=== PATIENT | female | born 1990 ===

== ENCOUNTER 2023-03-27 16:39 | Observation (INO) | payer MEDICAID, SELFPAY ==
--- NOTE | 2023-03-27 | ECG_ITS ---
Test Reason : CHEST PAIN Blood Pressure : / mmHG Vent. Rate : 059 BPM Atrial Rate : 059 BPM P-R Int : 174 ms QRS Dur : 090 ms QT Int : 412 ms P-R-T Axes : 066 048 040 degrees QTc Int : 407 ms Sinus bradycardia with sinus arrhythmia Otherwise normal ECG No previous ECGs available Referred By: Generic ED Physician Electronically Signed By:PEDRO WHEELER
--- NOTE | ~2023-03-27 | CT_ITS ---
EXAMINATION: CT ABDOMEN AND PELVIS WITHOUT CONTRAST CLINICAL INFORMATION: Abdominal pain. Rule out appendicitis. COMPARISON: None available. TECHNIQUE: Multidetector volumetric imaging was performed from the superior aspect of the liver through the pubic symphysis. Sagittal and coronal reformatted images were obtained on the technologist's workstation. This CT examination was performed using dose optimization techniques as appropriate, variously including the following: *Automated exposure control *Adjustment of mA and/or kV according to patient size (this includes techniques or standardized protocols for targeted exams where dose is matched to indication/reason for exam; i.e. extremities or head) *Use of iterative reconstruction technique DLP: 346 mGy-cm FINDINGS: LUNG BASES: The visualized lung bases are unremarkable. LIVER, GALLBLADDER, AND BILIARY TREE: The liver is moderately enlarged with the right hepatic lobe measuring 18 cm and left hepatic lobe measuring 20) in craniocaudad length. It as normal shape, and attenuation. No focal hepatic lesion or biliary ductal dilatation is present. The gallbladder has been surgically removed. PANCREAS: Unremarkable. SPLEEN: Unremarkable. ADRENAL GLANDS: Unremarkable. KIDNEYS AND URETERS: The kidneys are normal in size, shape, and attenuation. No hydronephrosis, hydroureter, or calculi seen. No perinephric stranding. BLADDER: Unremarkable. GASTROINTESTINAL TRACT: There is moderate scattered stool and gas seen throughout the colon without significant distention. The small bowel loops are normal caliber. Appendix is not visualized with certainty. No inflammatory process of free air seen. There is minimal free fluid in the pelvis. ABDOMINAL WALL: No significant hernia is appreciated. LYMPH NODES: Normal. VASCULAR: Unremarkable. PELVIC VISCERA: The uterus is retroverted. There is no adnexal mass or free fluid. OSSEOUS STRUCTURES: No aggressive lytic or sclerotic process. CT/CT abdomen pelvis wo IV con IMPRESSION: No acute intracranial process seen. Moderate hepatomegaly. Mild constipation. Appendix is not seen. The gallbladder has been removed. Fleischner guidelines were followed.
--- NOTE | ~2023-03-27 | XR_ITS ---
EXAMINATION: XR LUMBOSACRAL SPINE CLINICAL INFORMATION: Low back pain. COMPARISON: None available. TECHNIQUE: 3 views. FINDINGS: There is mild straightening of lumbar lordosis. The vertebral heights, alignment and disc heights are normal. There is mild endplate spondylosis at L3-L4 disc level. No visible acute fracture, dislocation or subluxation seen. SI joints are symmetrical. The soft tissues are normal. XR/XR lumbar spine 2-3V IMPRESSION: Mild straightening of lumbar lordosis likely spasm Mild endplate spondylosis L3-L4 disc level. No visible acute fracture, dislocation or subluxation seen.
--- NOTE | ~2023-03-27 | XR_ITS ---
EXAMINATION: XR THORACOLUMBAR SPINE CLINICAL INFORMATION: Pain. COMPARISON: None available. TECHNIQUE: 2 views. FINDINGS: The vertebral alignment is normal. No intrinsic bony abnormality. The disc heights and neural foramina are well maintained. The endplates and posterior elements are normal. No fracture or subluxation. The surrounding prevertebral soft tissues are unremarkable. XR/XR thoracic spine 2V IMPRESSION: No compression fractures or subluxations are identified. The disc spaces are preserved. No endplate changes are seen. The prevertebral soft tissues are normal. The foramina are patent.
[2023-03-27 16:45] VITALS: BP 140/75; BP 150/95; PULSE 60; PULSE 64; RESP 15; TEMP 36.9; O2SAT 97; O2SAT 99; BMI 26.6
--- NOTE | 2023-03-27 16:54 | PC.NURSE ---
Pt BIBA from home, abdominal pain x3 weeks with intermittent nausea and vomiting. States the pain feels similar to when she had gallbladder flare ups. Pt verbalizes she has not taken anything for the pain. Currently resting on stretcher, normal sinus on monitor, blood pressure elevated 150/95. Pt was ambulatory from EMS stretcher to hospital stretcher, respirations even and unlabored, skin pwd, no apparent distress at this time, awaiting
[2023-03-27 17:07] LABS: MANUAL DIFF FLAG NO
[2023-03-27 17:09] LABS: Basophils Percent Auto 0.3 % (0-2); Eosinophils Percent Auto 0.3 % (0-4); Hemoglobin 12.1 g/dl (12.0-16.0); Imm Gran Abs Auto 0.01 X10*3/uL (0.00-0.03); Imm Gran Pct Auto 0.1 % (0.0-0.4); Lymphocytes Absolute Auto 2.9 X10*3/uL (1.2-4.9); Lymphocytes Percent Auto 39.7 % (20-40); Mean Corpuscular HGB Conc 33.6 g/dl (31.0-35.0); Mean Corpuscular Hemoglobin 29.7 pg (27.0-33.0); Mean Corpuscular Volume 88.2 fL (80.0-98.0); Mean Platelet Volume 9.5 fL (9.4-12.3); Monocytes Absolute Auto 0.3 X10*3/uL (0.1-1.2); Monocytes Percent Auto 4.1 % (2-11); Neutrophils Absolute Auto 4.1 x10*3/uL (2.0-8.3); Neutrophils Percent Auto 55.5 % (45-73); Platelet Count 308 X10*3/uL (160-400); Red Blood Count 4.08 X10*6/uL (4.20-5.50); Red Cell Distribution Width 14.5 % (11.0-16.0); White Blood Count 7.4 X10*3/uL (4.8-10.8)
--- NOTE | 2023-03-27 17:36 | ED.ABDPAIN ---
HPI - Abdominal Pain General Chief Complaint: Abdominal Pain Stated Complaint: chest pain,dizziness Time Seen by Provider: 03/27/23 17:26 Source: patient, family and EMS Mode of arrival: EMS Limitations: no limitations History of Present Illness HPI narrative: 33-year-old female came in for evaluation of abdominal pain. Patient's symptoms started about 3 weeks ago that is progressively getting worse today patient felt severe diffuse abdominal pain that is associated with nausea and vomiting, had a normal bowel movement yesterday, no blood in the stool or in the vomitus, passing flatus, no dysuria, no frequency urination, no blood in the urine. Past surgical history is significant for cholecystectomy and ectopic . Patient declined use of alcohol. Patient smokes marijuana daily. Related Data Allergies Allergy/AdvReac Type Severity Reaction Status Date / Time No Known Allergies Allergy Verified 03/27/23 17:33 Review of Systems Review of Systems All other systems are reviewed and are negative Constitutional: Reports as per HPI and Reports no additional constitutional complaints Eyes: Reports as per HPI and Reports no additional eye complaints Reports system reviewed and no additional complaints, except as documented Cardiovascular: Reports as per HPI and Reports no additional cardiovascular complaints Respiratory: Reports as per HPI and Reports no additional respiratory complaints Gastrointestinal: Reports as per HPI and Reports no additional gastrointestinal complaints Genitourinary: Reports no additional female genitourinary complaints Musculoskeletal: Reports no additional musculoskeletal complaints Skin/Breast: Reports system reviewed and no additional complaints, except as docu Psychiatric: Reports no additional psychiatric complaints Endocrine: Reports no additional endocrine complaints Hematologic/Lymphatic: Reports no additional hematologic/lymphatic complaints Allergic/Immunologic: Reports no additional allergic/immunologic complaints Reports system reviewed and no additional complaints, except as documented and Reports Abnormal speech present [facility] Social History Social History Alcohol intake: current Alcohol intake frequency: holidays/special occasions only Smoked in Last 30 Days: Yes Use of substances other than those prescribed or required for medical reasons: Yes Substance Use Type: Marijuana Advance Directives: No Advance Directives Information Provided: No Patient : No Physical Exam ED Vital Signs: Vital Signs - 24 hr 03/27/23 16:45 03/27/23 19:27 Temperature 98.5 F Pulse Rate 60 48 L Respiratory Rate 15 16 Blood Pressure 150/95 H 147/83 H Pulse Oximetry 97 100 Oxygen Delivery Method Room Air BMI result Body Mass Index 26.6 Vital signs have been reviewed as appeared to be correct. Blood pressure normal. Heart rate normal. Respiration rate normal. Temperature normal. Oxygen saturation normal. Appearance: Alert. Oriented X3. No acute distress. Head: Normal external exam. Normocephalic. Atraumatic. No Salguero signs noted. No raccoon eyes noted Eyes: PERRLA. EOMI. Conjunctiva and sclera normal. Eyelids normal. ENT: TM's Normal. Pharynx normal. Uvula midline. Moist mucous membranes. No trismus noted. No drooling noted. No muffled voice noted. Neck: Normal inspection. Neck supple. FROM. No adenopathy. Thyroid Normal. No meningeal signs. No neck mass noted. CVS: Normal heart rate and rhythm. Heart sound normal. No murmurs noted. Pulses normal throughout. Respiratory: No respiratory distress. Painless inspiration. Breath sounds normal. No wheezes/rales/rhonchi noted. Chest nontender. No accessory muscle usage noted or decreased air movement noted. Abdomen: Soft , mild tenderness, no rebound tenderness, no guarding. Bowel sounds normal in all 4 quadrants. No distention noted. No organomegaly noted. No visible injury noted. Back: No CVA tenderness. Full range of motion noted. Skin: Skin warm and dry. Normal skin color. Normal skin turgor. No rashes/lesions/lacerations noted. Extremities: No lower extremity edema. Extremities exhibit normal range of motion. Extremities nontender. Neuro: Oriented X 3. Cranial nerve exam: II-XII are grossly intact No motor deficit. No sensory deficit. Reflexes normal. Course Reevaluation(s) Reevaluation #1: 33-year-old female history of marijuana smoking, received multiple doses of Zofran, Reglan, Ativan, oxycodone, morphine, and Dilaudid with no improvement patient still nauseous and vomiting in the emergency department. CT of the abdomen and pelvis showing no acute intra-abdominal pathology. Time: 20:27 Medical Decision Making Differential Diagnosis Differential Diagnoses: The differential diagnosis associated with the presentation includes (Gastritis, small-bowel obstruction, colitis, marijuana inducing emesis, cyclic vomiting syndrome, dehydration, electrolyte abnormality, severe anemia, UTI, .) Admission/Observation Consideration of admission/observation: Escalation of care including admission/observation considered Consult Healthcare Provider Management of the patient was discussed with: Hospitalist (Dr. Ross) Lab Data MDM Lab Attestation statement: I reviewed the patient's lab results. 03/27/23 17:02 03/27/23 17:02 Labs: Lab Results 03/27/23 03/27/23 03/27/23 Range/Units 17:02 17:02 17:02 WBC 7.4 (4.8-10.8) X10*3/uL RBC 4.08 L (4.20-5.50) X10*6/uL Hgb 12.1 (12.0-16.0) g/dl Hct 36.0 L (37.0-47.0) % MCV 88.2 (80.0-98.0) fL MCH 29.7 (27.0-33.0) pg MCHC 33.6 (31.0-35.0) g/dl RDW 14.5 (11.0-16.0) % Plt Count 308 (160-400) X10*3/uL MPV 9.5 (9.4-12.3) fL Immature Gran % (Auto) 0.1 (0.0-0.4) % Neut % (Auto) 55.5 (45-73) % Lymph % (Auto) 39.7 (20-40) % Sublette % (Auto) 4.1 (2-11) % Eos % (Auto) 0.3 (0-4) % Baso % (Auto) 0.3 (0-2) % Lymph # (Auto) 2.9 (1.2-4.9) X10*3/uL Sublette # (Auto) 0.3 (0.1-1.2) X10*3/uL Eos # (Auto) 0.0 (0.0-0.4) X10*3/uL Baso # (Auto) 0.0 (0.0-0.2) X10*3/uL Abs Immat Gran (auto) 0.01 (0.00-0.03) X10*3/uL Absolute Neuts (auto) 4.1 (2.0-8.3) x10*3/uL Absolute Nucleated RBC 0.000 (0.0-0.012) X10*3/uL Nucleated RBC % (auto) 0.0 (0.0-0.2) /100WBC Sodium 140 (135-145) mmol/L Potassium 3.4 (3.3-5.1) mmol/L Chloride 108 (96-108) mmol/L Carbon Dioxide 24 (22-29) mmol/L Anion Gap 11 L (12-20) BUN 4 L (9-16) mg/dL Creatinine 0.77 (0.5-1.4) mg/dL Estim Creat Clear Calc 96.1 Estimated GFR > 60 Random Glucose 85 (60-115) mg/dL Calcium 9.5 (8.4-10.2) mg/dL Total Bilirubin 0.3 (0.0-1.0) mg/dL Direct Bilirubin 0.1 (0.0-0.5) mg/dL AST 15 (5-31) U/L ALT 8 (0-31) U/L Alkaline Phosphatase 55 (39-117) U/L Troponin I High Sens < 2.7 (<3.5-17.0) ng/L Total Protein 7.2 (6.5-8.0) g/dL Albumin 3.8 (3.5-5.0) g/dL Lipase 17 (8-78) U/L Urine Color Urine Appearance Urine pH (5.0-9.0) Ur Specific Theriot (1.005-1.025) Urine Protein (Neg-Trace) mg/dL Urine Glucose (UA) (Negative) mg/dL Urine Ketones (Negative) mg/dL Urine Blood (Negative) Urine Nitrite (Negative) Ur Leukocyte Esterase (Negative) Urine RBC (0-2) /HPF Urine WBC (0-5) /HPF Ur Squamous Epith Cells (0-2) /HPF Urine Bacteria (None Seen) Hyaline Casts (0-2) /LPF Urine Test (NEGATIVE) 03/27/23 03/27/23 Range/Units 17:49 17:49 WBC (4.8-10.8) X10*3/uL RBC (4.20-5.50) X10*6/uL Hgb (12.0-16.0) g/dl Hct (37.0-47.0) % MCV (80.0-98.0) fL MCH (27.0-33.0) pg MCHC (31.0-35.0) g/dl RDW (11.0-16.0) % Plt Count (160-400) X10*3/uL MPV (9.4-12.3) fL Immature Gran % (Auto) (0.0-0.4) % Neut % (Auto) (45-73) % Lymph % (Auto) (20-40) % Sublette % (Auto) (2-11) % Eos % (Auto) (0-4) % Baso % (Auto) (0-2) % Lymph # (Auto) (1.2-4.9) X10*3/uL Sublette # (Auto) (0.1-1.2) X10*3/uL Eos # (Auto) (0.0-0.4) X10*3/uL Baso # (Auto) (0.0-0.2) X10*3/uL Abs Immat Gran (auto) (0.00-0.03) X10*3/uL Absolute Neuts (auto) (2.0-8.3) x10*3/uL Absolute Nucleated RBC (0.0-0.012) X10*3/uL Nucleated RBC % (auto) (0.0-0.2) /100WBC Sodium (135-145) mmol/L Potassium (3.3-5.1) mmol/L Chloride (96-108) mmol/L Carbon Dioxide (22-29) mmol/L Anion Gap (12-20) BUN (9-16) mg/dL Creatinine (0.5-1.4) mg/dL Estim Creat Clear Calc Estimated GFR Random Glucose (60-115) mg/dL Calcium (8.4-10.2) mg/dL Total Bilirubin (0.0-1.0) mg/dL Direct Bilirubin (0.0-0.5) mg/dL AST (5-31) U/L ALT (0-31) U/L Alkaline Phosphatase (39-117) U/L Troponin I High Sens (<3.5-17.0) ng/L Total Protein (6.5-8.0) g/dL Albumin (3.5-5.0) g/dL Lipase (8-78) U/L Urine Color Yellow Urine Appearance Clear Urine pH >= 9.0 (5.0-9.0) Ur Specific Theriot 1.015 (1.005-1.025) Urine Protein Trace (Neg-Trace) mg/dL Urine Glucose (UA) Negative (Negative) mg/dL Urine Ketones Negative (Negative) mg/dL Urine Blood Trace H (Negative) Urine Nitrite Negative (Negative) Ur Leukocyte Esterase Negative (Negative) Urine RBC 11-20 H (0-2) /HPF Urine WBC 0-5 (0-5) /HPF Ur Squamous Epith Cells 0-2 (0-2) /HPF Urine Bacteria None Seen (None Seen) Hyaline Casts 0-2 (0-2) /LPF Urine Test NEGATIVE (NEGATIVE) Independent Interpretation I performed an independent interpretation of an: CT Scan (Abdomen and pelvis: No acute intra-abdominal pathology.) Radiology Impression Discussion of test interpretation with radiology: I have reviewed the radiologist's reading. (No acute intracranial process seen. Moderate hepatomegaly. Mild constipation. Appendix is not seen. The gallbladder has been removed. ) Chronic Conditions Patient?s care impacted by: Other (Smoking marijuana) Medications Administered Discontinued Medications Generic Name Dose Route Start Last Admin Trade Name Freq PRN Reason Stop Dose Admin Al Hydroxide/Mg Hydroxide 30 ml 03/27/23 17:33 03/27/23 17:50 Magnesium Hydrox/Alum Hydrox 30 Ml Oral.Susp PO 03/27/23 17:34 30 ml ONCE ONE Administration Famotidine 20 mg 03/27/23 17:33 03/27/23 17:49 Famotidine/Pf 20 Mg/2 Ml Vial IVPUSH 03/27/23 17:34 20 mg ONCE ONE Administration Lorazepam 1 mg 03/27/23 19:38 03/27/23 19:46 Lorazepam 2 Mg/Ml Vial IVPUSH 03/27/23 19:39 1 mg ONCE ONE Administration Morphine Sulfate 1 mg 03/27/23 18:24 03/27/23 18:31 Morphine Sulfate 2 Mg/Ml Cartridge IVPUSH 03/27/23 18:25 1 mg ONCE ONE Administration Protocol Ondansetron HCl 4 mg 03/27/23 17:33 03/27/23 17:50 Ondansetron Hcl 4 Mg/2 Ml Vial IVPUSH 03/27/23 17:34 4 mg ONCE ONE Administration Ondansetron HCl 4 mg 03/27/23 19:38 03/27/23 19:46 Ondansetron Hcl 4 Mg/2 Ml Vial IVPUSH 03/27/23 19:39 4 mg ONCE ONE Administration Oxycodone HCl 5 mg 03/27/23 19:38 03/27/23 19:46 Oxycodone Hcl Immed Release 5 Mg Tablet PO 03/27/23 19:39 5 mg ONCE ONE Administration Discharge Plan Discharge Clinical Impression: Intractable vomiting Patient Disposition: Admitted As Inpatient
[2023-03-27 17:38] LABS: Alanine Aminotransferase 8 U/L (0-31); Albumin Level 3.8 g/dL (3.5-5.0); Alkaline Phosphatase 55 U/L (39-117); Anion Gap 11 (12-20); Aspartate Amino Transferase 15 U/L (5-31); Bilirubin Direct 0.1 mg/dL (0.0-0.5); Bilirubin Total 0.3 mg/dL (0.0-1.0); Blood Urea Nitrogen 4 mg/dL (9-16); Calcium 9.5 mg/dL (8.4-10.2); Carbon Dioxide 24 mmol/L (22-29); Chloride 108 mmol/L (96-108); Creatinine Clr Calc Pharmacy 96.1; Estimated Glomerular Filt Rate > 60; Glucose Random 85 mg/dL (60-115); Lipase 17 U/L (8-78); Potassium 3.4 mmol/L (3.3-5.1); Sodium 140 mmol/L (135-145); Total Protein 7.2 g/dL (6.5-8.0)
[2023-03-27] MEDS: Famotidine/PF 20 MG/2 ML VIAL IVPUSH (17:49)
[2023-03-27] MEDS: Magnesium Hydrox/Alum Hydrox 30 ML ORAL.SUSP PO (17:50)
[2023-03-27] MEDS: ondansetron HCL 4 MG/2 ML VIAL IVPUSH ×2 (17:50→19:46)
[2023-03-27 18:04] LABS: Troponin-I High Sensitivity < 2.7 ng/L (<3.5-17.0)
[2023-03-27 18:14] LABS: Appearance Urine Clear; Color Urine Yellow; Glucose Urine UA Negative (Negative); Leukocyte Esterase Urine Negative (Negative); Nitrite Urine Negative (Negative); PH >= 9.0 (5.0-9.0); Specific Gravity - Urine 1.015 (1.005-1.025); UMIC TRIGGER UACC YES; Urine Blood Trace (Negative); Urine Ketones Negative (Negative); Urine Protein Trace mg/dL (Neg-Trace)
[2023-03-27 18:17] LABS: Bacteria Urine None Seen (None Seen); Hyaline Casts Urine 0-2 /LPF (0-2); Squamous Epithelial Cell Urine 0-2 /HPF (0-2); WBC Urine 0-5 /HPF (0-5)
[2023-03-27 18:19] LABS: UPreg QC Valid YES; Urine Pregnancy NEGATIVE (NEGATIVE)
[2023-03-27] MEDS: Morphine Sulfate 2 MG/ML CARTRIDGE 1 MG IVPUSH (18:31)
--- OUTSIDE RECORDS SUMMARY | 2023-03-27 19:00 | XMS_ITS | Continuity of Care Document ---
Author Name Unknown Organization [facility] Address [address] [place] [id number]- Care Team Providers Care Encapsulator Name Role Phone Miri FAIRBANKS, Donny Primary Care Physician Encounter [facility] [place] Date(s): 02/09/20 - 03/16/[address] [address]- [facility] Attending Physician: Not on Staff, Attending MD Allergies, Adverse Reactions, Alerts Substance Reaction Severity Status NKA Active Immunizations Given and Recorded Vaccine Date Status Refusal Reason influ virus vac, H1N1, inactive(oldterm) 06/06/09 Given Medications acetaminophen 500 mg oral tablet 2 tablet = 1,000 mg, By Mouth, Every 6 hours, PRN as needed for pain, # 50 tablet, 0 Refills, Maintenance, 11/13/19 18:24:00 EDT, Tablet, [id number], 161, cm, 11/13/19 16:06:00 EDT, Height Start Date: 11/13/19 Status: Ordered Cosentyx = 300 mg, Subcutaneous Infusion, 0 Refills, Maintenance, 11/13/19 17:13:00 EDT Start Date: 11/13/19 Status: Ordered ferrous fumarate 100 mg/5 ml oral suspension 15 mL = 300 mg, By Mouth, Daily, # 1 bottle, 0 Refills, Maintenance Start Date: 11/15/09 Status: Ordered H1N1 vaccine H1N1 vaccine, 0.5, mL, Intramuscular, Once, # 1 application, Refills 0, Tot. Refills 0, 06/05/09 15:24:47 Start Date: 06/05/09 Status: Ordered ibuprofen 100 mg/5 ml oral suspension 15 mL = 300 mg, By Mouth, Every 6 hours, PRN Pain, # 120 mL, 0 Refills, Maintenance, Suspension Start Date: 11/15/09 Status: Ordered ibuprofen 800 mg oral tablet 800 mg, 1, tablet, By Mouth, Every 8 hours, # 30 tablet, Refills 0, Tot. Refills 0, Maintenance, 11/13/19 18:24:00 EDT, Route to Pharmacy Electronically, [facility] #[id number], 161, cm, 11/13/19 16:06:00 EDT, Height Start Date: 11/13/19 Status: Ordered Lovenox 40 mg/0.4 mL injectable solution See Instructions, Subcutaneous Infusion Daily, 0 Refills, Maintenance, 03/16/20 13:48:00 EDT Start Date: 03/16/20 Status: Ordered miSOPROStol 200 mcg oral tablet 4 tablet = 800 mcg, Vaginally, Once, # 4 tablet, 0 Refills, Soft Stop, 11/13/19 18:22:00 EDT, [facility]/pharm[facility] #[id number], 161, cm, 11/13/19 16:06:00 EDT, Height Start Date: 11/13/19 Status: Ordered Nat[place]w Multivitamins oral tablet, chewable See Instructions, 1 tablet Daily, # 100 tablet, 3 Refills Start Date: 06/05/09 Stop Date: 07/05/09 Status: Ordered oxycodone 5 mg/5 ml oral solution 5 mL = 5 mg, By Mouth, Every 6 hours, PRN Pain, # 60 mL, 0 Refills, Maintenance, oral solution Start Date: 11/15/09 Status: Ordered Multivitamins with Folic Acid 1 mg oral tablet 1 tablet, By Mouth, Daily, # 90 tablet, 3 Refills, Maintenance, 11/03/19 11:54:00 EDT, Tablet, [facility] [place], [place] -, 1 tablet By Mouth Daily, 160, cm, 11/03/19 11:12:00 EDT, Height Start Date: 11/03/19 Status: Ordered Multivitamins with Folic Acid 1 mg oral tablet 1 tablet, By Mouth, Daily, # 90 tablet, 2 Refills Start Date: 05/19/09 Stop Date: 06/18/09 Status: Ordered Plus with 27 mg Iron with Folic Acid 1 mg oral tablet 1 tablet, By Mouth, Daily, # 30 tablet, 5 Refills Start Date: 04/19/09 Stop Date: 10/16/09 Status: Ordered Zofran 4 mg oral tablet 1 tablet = 4 mg, By Mouth, Every 8 hours, # 2 tablet, 0 Refills, Maintenance, 11/13/19 18:22:00 EDT, Tablet, [id number], 161, cm, 11/13/19 16:06:00 EDT, Height Start Date: 11/13/19 Status: Ordered Problem List Condition Effective Dates Status Health Status Inform ant Anxiety(Confirmed) Active Depression(Confirmed) Active Psoriasis(Confirmed) 1 Active 1Followed by dermatology (Dr. Coulter [address] [place] [address]). Receives weekly injections/ derm is aware of Social History Social History Type Response Tobacco Use: 4 or less cigar ettes(less than 1/4 pack)/day in last 30 days. Other: Patient states she is trying to stop smoking now that she is / smokes 3-4 cigarettes daily. Sex
--- OUTSIDE RECORDS SUMMARY | 2023-03-27 19:00 | XMS_ITS | Continuity of Care Document ---
Author Name Unknown Organization [facility] Address [address] [place] [id number]- Care Team Providers Care Gas Pumping Station Supervisor Name Role Phone Alphonse CRUZ, Júnior Amezquita Primary Care Physician [phone] Encounter [facility] [place] Date(s): 10/25/20 - 12/29/[address] [address]- Attending Physician: Not on Staff, Attending MD Allergies, Adverse Reactions, Alerts Substance Reaction Severity Status NKA Active Immunizations Given and Recorded Vaccine Date Status Refusal Reason Influenza Virus Vaccine (oldterm) 1 06/11/20 Recor ded influ virus vac, H1N1, inactive(oldterm) 06/06/09 Given 1Result Comment: Patient states she received flu vaccine this month at [facility] Medications acetaminophen 500 mg oral tablet 2 tablet = 1,000 mg, By Mouth, Every 6 hours, PRN as needed for pain, # 50 tablet, 0 Refills, Maintenance, 11/13/19 18:24:00 EDT, Tablet, [facility]/pharm[facility] #[id number], 161, cm, 11/13/19 16:06:00 EDT, Height Start Date: 11/13/19 Status: Ordered Cosentyx = 300 mg, Subcutaneous Infusion, 0 Refills, Maintenance, 11/13/19 17:13:00 EDT Start Date: 11/13/19 Status: Ordered ferrous fumarate 100 mg/5 ml oral suspension 15 mL = 300 mg, By Mouth, Daily, # 1 bottle, 0 Refills, Maintenance Start Date: 11/15/09 Status: Ordered ibuprofen 800 mg oral tablet See Instructions, TAKE 1 TABLET BY MOUTH EVERY 8 HOURS NEEDED FOR MILD PAIN, # 30 tablet, Refills 0, Acute, Instructions Replace Required Details, Route to Pharmacy Electronically, [id number], 160, cm, 08/02/20 13:35:00 EST, Height, 53.2, kg,... Start Date: 09/04/20 Status: Ordered Multivitamins with Folic Acid 1 mg oral tablet 1 tablet, By Mouth, Daily, # 90 tablet, 3 Refills, Maintenance, 06/21/20 14:53:00 EST, Tablet, [facility]/pharmacy #[id number], 1 tablet By Mouth Daily, 161, cm, 03/16/20 13:47:00 EDT, Height Start Date: 06/21/20 Status: Ordered ProAir HFA 90 mcg/inh inhalation aerosol 1 puffs, Inhalation, 4 times a day, PRN as needed for wheezing, # 18 Gm, 0 Refills, Maintenance, 07/21/20 7:11:00 EST, Aerosol, Partial fill upon patient request if the prescription is for a scheduleII opioid drug. Start Date: 07/21/20 Status: Ordered Triamcinolone 0.025% Topical Topically, 2 times a day, 0 Refills, Maintenance Start Date: 07/03/20 Status: Ordered Problem List Condition Effective Dates Status Health Status Inform ant Abnormal uterine bleeding (AUB)(Confirmed) 1 Active Anemia(Confirmed) 2 Active Anxiety(Confirmed) Active COPD (chronic obstructive pu lmonary disease)(Confirmed) 3 Active DVT (deep venous thrombosis)(Confirmed) 4 03/2020 Active Depression(Confirmed) Active History of twin in prior (Confirmed) 2009 Active History of delivery, currently (Confirmed) 2009 Active Marijuana user(Confirmed) Active PTSD (post-traumatic stress disorder)(Confirmed) 6 Active Psoriasis(Confirmed) 7, 8 Active 1Seen in office 03/16/2020 2Patient reports she was hospitalized at [facility] in February 2020 due to an abscess and was found to have Hgb of 6.7. Received one unit of PRBCs 3Patient report diagnosed by PCP but did not receive follow up and reports that she does not have any issues with breathing. 4H/O DVT following placement of right PICC Line. Was taking lovenox but was discontinued in April 2020 5Patient reports h/o vag delivery of twin 6Currently in couseling through [facility] weekly on the phone. States currently feels safe and stable.Stopped taking medication due to . 7Currently sees Dr. Coulter for dermatology. No longer receives injections--states that she is on creams/ointments. States Dr. Coluter is aware of . Next appointment in August. 8Followed by dermatology (Dr. Coulter [address] [facility]). Receives weekly injections/ derm is aware of Social History Social History Type Response Tobacco Use: 4 or less cigar ettes(less than 1/4 pack)/day in last 30 days. Other: Smokes 3-4 cigarettes daily. Declines NRT or smoking cessation. Sex
--- OUTSIDE RECORDS SUMMARY | 2023-03-27 19:00 | XMS_ITS | Continuity of Care Document ---
Author Name Unknown Organization [facility] Address [address] [place] [id number]- Care Team Providers Care Release Of Information Clerk Name Role Phone Alphonse CRUZ, Júnior Amezquita Primary Care Physician Encounter [facility] [place] Date(s): 10/25/20 - 11/24/[address] [address] Allergies, Adverse Reactions, Alerts Substance Reaction Severity Status NKA Active Immunizations Given and Recorded Vaccine Date Status Refusal Reason Influenza Virus Vaccine (oldterm) 1 06/11/20 Recor ded influ virus vac, H1N1, inactive(oldterm) 06/06/09 Given 1Result Comment: Patient states she received flu vaccine this month at [facility] Medications acetaminophen 500 mg oral tablet 2 tablet = 1,000 mg, By Mouth, Every 6 hours, PRN as needed for pain, # 50 tablet, 0 Refills, Maintenance, 11/13/19 18:24:00 EDT, Tablet, [facility]/pharmacy #[id number], 161, cm, 11/13/19 16:06:00 EDT, [...] Replace Required Details, Route to Pharmacy Electronically, [id number], 160, cm, 08/02/20 13:35:00 EST, Height, 53.2, kg,... Start Date: 09/04/20 Status: Ordered Multivitamins with Folic Acid 1 mg oral tablet 1 tablet, By Mouth, Daily, # 90 tablet, 3 Refills, Maintenance, 06/21/20 14:53:00 EST, Tablet, [id number], 1 tablet By Mouth Daily, 161, [...] 03/16/2020 2Patient reports she was hospitalized at [facility] in February 2020 due to an abscess [...] delivery of twin 6Currently in couseling through [facility] weekly on the phone. States currently feels safe and stable.Stopped taking medication due to . 7Currently sees Dr. Coulter for dermatology. No longer receives injections--states that she is on creams/ointments. States Dr. Coulter is aware of . Next appointment in August. 8Followed by dermatology (Dr. Coulter [address] [facility]). Receives weekly injections/ derm is aware of Social History Social History Type Response Tobacco Use: 4 or less cigar ettes(less than 1/4 pack)/day in last 30 days. Other: Smokes 3-4 cigarettes daily. Declines NRT or smoking cessation. Sex
--- OUTSIDE RECORDS SUMMARY | 2023-03-27 19:00 | XMS_ITS | Continuity of Care Document ---
Author Name Unknown Organization [facility] Address [address] [place] [address]- Care Team Providers Care Pneumatic Press Hand Name Role Phone Miri FAIRBANKS, Donny Primary Care Physician [phone] Encounter [facility] [place] Date(s): 03/24/20 - 04/23/20 [facility] [address] [place] [id number]- [facility] Allergies, Adverse Reactions, Alerts Substance Reaction Severity [...] 11/13/19 18:24:00 EDT, Route to Pharmacy Electronically, [facility]/pharmacy #[id number], 161, cm, 11/13/19 16:06:00 EDT, Height Start Date: 11/13/19 Status: Ordered Lovenox 40 mg/0.4 mL injectable solution See Instructions, Subcutaneous Infusion Daily, 0 Refills, Maintenance, 03/16/20 13:48:00 EDT Start Date: 03/16/20 Status: Ordered miSOPROStol 200 mcg oral tablet 4 tablet = 800 mcg, Vaginally, Once, # 4 tablet, 0 Refills, Soft Stop, 11/13/19 18:22:00 EDT, [facility]/pharmacy #[id number], 161, cm, 11/13/19 16:06:00 EDT, Height [...] 3 Refills, Maintenance, 11/03/19 11:54:00 EDT, Tablet, [facility] [place], [place] -, 1 tablet By Mouth Daily, [...] 1 Active 1Followed by dermatology (Dr. Coulter [address] [place] [address]). Receives weekly injections/ derm is aware of Social History Social History Type Response Tobacco Use: 4 or less cigar ettes(less than 1/4 pack)/day in last 30 days. Other: Patient states she is trying to stop smoking now that she is / smokes 3-4 cigarettes daily. Sex
--- OUTSIDE RECORDS SUMMARY | 2023-03-27 19:00 | XMS_ITS | Continuity of Care Document ---
Author Name Unknown Organization [facility] Address [address] [place] [id number]- Care Team Providers Care Hydroelectric Machinery Mechanic Name Role Phone Alphonse CRUZ, Júnior Amezquita Primary Care Physician [place] [facility] [place](s): 02/22/21 - 04/15/[address] [phone]- Attending Physician: Not on Staff, Attending MD Allergies, Adverse Reactions, Alerts Substance Reaction Severity Status NKA Active Immunizations Given and Recorded Vaccine Date Status Refusal Reason Influenza Virus Vaccine (oldterm) 1 06/11/20 Recor ded influ virus vac, H1N1, inactive(oldterm) 06/06/09 Given 1Result Comment: Patient states she received flu vaccine this month at [facility] Medications acetaminophen 500 mg oral tablet 2 tablet = 1,000 mg, By Mouth, Every 6 hours, PRN as needed for pain, # 50 tablet, 0 Refills, Maintenance, 11/13/19 18:24:00 EDT, Tablet, [facility]/pharmacy #[id number], 161, cm, 11/13/19 16:06:00 EDT, [...] Replace Required Details, Route to Pharmacy Electronically, [facility] STORE [id number], 160, cm, 08/02/20 13:35:00 EST, Height, 53.2, kg,... Start Date: 09/04/20 Status: Ordered Multivitamins with Folic Acid 0.8 mg oral tablet 1 tablet, By Mouth, Daily, # 90 tablet, 2 Refills, Maintenance, 02/22/21 14:41:00 EDT, Tablet, [facility]/pharmacy #1026, Partial fill upon patient request if the prescription is for a schedule II opioid drug., 1 tablet By Mouth Daily, 160, cm, 01/19/21 15:0... Start Date: 02/22/21 Status: Ordered Multivitamins with Folic Acid 1 mg oral tablet 1 tablet, By Mouth, Daily, # 90 tablet, 2 Refills, Maintenance, 01/31/21 11:48:00 EDT, Tablet, [facility]/pharmacy #1026, Partial fill upon patient request if the prescription is for a schedule II opioid drug., 1 tablet By Mouth Daily, 160, cm, 01/19/21 15:0... Start Date: 01/31/21 Status: Ordered Multivitamins with Folic Acid 1 mg oral tablet 1 tablet, By Mouth, Daily, # 90 tablet, 3 Refills, Maintenance, 06/21/20 14:53:00 EST, Tablet, [facility]/pharmacy #[id number], 1 tablet By Mouth Daily, [...] 03/16/2020 2Patient reports she was hospitalized at [facility] in February 2020 due to an abscess [...] delivery of twin 6Currently in couseling through [facility] weekly on the phone. States currently feels safe and stable.Stopped taking medication due to . 7Currently sees Dr. Coulter for dermatology. No longer receives injections--states that she is on creams/ointments. States Dr. Coulter is aware of . Next appointment in August. 8Followed by dermatology (Dr. Coulter [address] [facility]). Receives weekly injections/ derm is aware of Social History Social History Type Response Tobacco Use: 4 or less cigar ettes(less than 1/4 pack)/day in last 30 days. Other: Smokes 3-4 cigarettes daily. Declines NRT or smoking cessation. Sex
--- OUTSIDE RECORDS SUMMARY | 2023-03-27 19:00 | XMS_ITS | Continuity of Care Document ---
Author Name Unknown Organization [facility] Address [address] [place] [address]- Care Team Providers Care Email Campaign Specialist Name Role Phone Miri FAIRBANKS, Donny Primary Care Physician Encounter [facility] [place] Date(s): 04/03/20 - 05/03/20 [facility] [address] [place] [phone]- [facility] Allergies, Adverse Reactions, Alerts Substance Reaction [...] 11/13/19 18:24:00 EDT, Route to Pharmacy Electronically, [facility]/pharmacy #[id number], 161, cm, 11/13/19 16:06:00 EDT, Height Start Date: 11/13/19 Status: Ordered Lovenox 40 mg/0.4 mL injectable solution See Instructions, Subcutaneous Infusion Daily, 0 Refills, Maintenance, 03/16/20 13:48:00 EDT Start Date: 03/16/20 Status: Ordered miSOPROStol 200 mcg oral tablet 4 tablet = 800 mcg, Vaginally, Once, # 4 tablet, 0 Refills, Soft Stop, 11/13/19 18:22:00 EDT, [facility]/pharmacy #[id number], 161, cm, 11/13/19 16:06:00 [...] 3 Refills, Maintenance, 11/03/19 11:54:00 EDT, Tablet, [facility] [place], [place] -, 1 tablet By Mouth Daily, [...] 1 Active 1Followed by dermatology (Dr. Coulter [address] [place] [address]). Receives weekly injections/ derm is aware of Social History Social History Type Response Tobacco Use: 4 or less cigar ettes(less than 1/4 pack)/day in last 30 days. Other: Patient states she is trying to stop smoking now that she is / smokes 3-4 cigarettes daily. Sex
--- OUTSIDE RECORDS SUMMARY | 2023-03-27 19:00 | XMS_ITS | Continuity of Care Document ---
Author Name Unknown Organization [facility] Address [address] [place] [phone]- Care Team Providers Care Academic Coordinator Name Role Phone Alphonse CRUZ, Júnior Amezquita Primary Care Physician [place] [facility] [place](s[place] 01/19/21 - 02/22/[address] [address]- Attending Physician: Kimberly Mendez DO Admitting Physician: Kimberly Mendez DO Referring Physician: Zeenat De La Cruz CNM Allergies, Adverse Reactions, Alerts Substance Reaction Severity Status NKA Active Immunizations Given and Recorded Vaccine Date Status Refusal Reason Influenza Virus Vaccine (oldterm) 1 06/11/20 Recor ded influ virus vac, H1N1, inactive(oldterm) 06/06/09 Given 1Result Comment: Patient states she received flu vaccine this month at [facility] Medications acetaminophen 500 mg oral tablet 2 tablet = 1,000 mg, By Mouth, Every 6 hours, PRN as needed for pain, # 50 tablet, 0 Refills, Maintenance, 11/13/19 18:24:00 EDT, Tablet, [facility]/pharmacy #1026, 161, cm, 11/13/19 16:06:00 EDT, Height [...] Required Details, Route to Pharmacy Electronically, [facility] STORE [id number], 160, cm, 08/02/20 13:35:00 EST, Height, 53.2, kg,... Start Date: 09/04/20 Status: Ordered Multivitamins with Folic Acid 0.8 mg oral tablet 1 tablet, By Mouth, Daily, # 90 tablet, 2 Refills, Maintenance, 02/22/21 14:41:00 EDT, Tablet, [facility]/pharmacy #1026, Partial fill upon patient request if the prescription is for a schedule II opioid drug., 1 tablet By Mouth Daily, 160, cm, 01/19/21 15:0... Start Date: 02/22/21 Status: Ordered Multivitamins with Folic Acid 1 mg oral tablet 1 tablet, By Mouth, Daily, # 90 tablet, 2 Refills, Maintenance, 01/31/21 11:48:00 EDT, Tablet, [facility]/pharmacy #1026, Partial fill upon patient request if the prescription is for a schedule II opioid drug., 1 tablet By Mouth Daily, 160, cm, 01/19/21 15:0... Start Date: 01/31/21 Status: Ordered Multivitamins with Folic Acid 1 mg oral tablet 1 tablet, By Mouth, Daily, # 90 tablet, 3 Refills, Maintenance, 06/21/20 14:53:00 EST, Tablet, [facility]/pharmacy #1026, 1 tablet By Mouth Daily, 161, [...] 03/16/2020 2Patient reports she was hospitalized at [facility] in February 2020 due to an abscess [...] delivery of twin 6Currently in couseling through [facility] weekly on the phone. States currently feels safe and stable.Stopped taking medication due to . 7Currently sees Dr. Coulter for dermatology. No longer receives injections--states that she is on creams/ointments. States Dr. Coulter is aware of . Next appointment in August. 8Followed by dermatology (Dr. Coulter [facility] Receives weekly injections/ derm is aware of Social History Social History Type Response Tobacco Use: 4 or less cigar ettes(less than 1/4 pack)/day in last 30 days. Other: Smokes 3-4 cigarettes daily. Declines NRT or smoking cessation. Sex
--- OUTSIDE RECORDS SUMMARY | 2023-03-27 19:00 | XMS_ITS | Continuity of Care Document ---
Author Name Unknown Organization [facility] Address [address] [place] [phone]- Care Team Providers Care Brick Kiln Burner Name Role Phone Alphonse CRUZ, Júnior Amezquita Primary Care Physician Encounter [facility] [place] Date(s): 09/18/21 - 10/20/[address] [id number] Attending Physician: Not on Staff, Attending MD Allergies, Adverse Reactions, Alerts No Known Allergies Immunizations Given and Recorded Vaccine Date Status Refusal Reason Influenza Virus Vaccine (oldterm) 1 06/11/20 Recor ded influ virus vac, H1N1, inactive(oldterm) 06/06/09 Given 1Result Comment: Patient states she received flu vaccine this month at [facility] Medications acetaminophen 500 mg oral tablet 2 tablet = 1,000 mg, By Mouth, Every 6 hours, PRN as needed for pain, # 50 tablet, 0 Refills, Maintenance, 11/13/19 18:24:00 EDT, Tablet, [facility]/pharmacy #1026, 161, cm, 11/13/19 16:06:00 EDT, [...] Replace Required Details, Route to Pharmacy Electronically, [facility] STORE [id number], 160, cm, 08/02/20 13:35:00 EST, Height, 53.2, kg,... Start Date: 09/04/20 Status: Ordered Multivitamins with Folic Acid 0.8 mg oral tablet 1 tablet, By Mouth, Daily, # 90 tablet, 2 Refills, Maintenance, 02/22/21 14:41:00 EDT, Tablet, [facility]/pharmacy #1026, Partial fill upon patient request if the prescription is for a schedule II opioid drug., 1 tablet By Mouth Daily, 160, cm, 01/19/21 15:0... Start Date: 02/22/21 Status: Ordered Multivitamins with Folic Acid 1 mg oral tablet 1 tablet, By Mouth, Daily, # 90 tablet, 2 Refills, Maintenance, 01/31/21 11:48:00 EDT, Tablet, [facility]/pharmacy #1026, Partial fill upon patient request if the prescription is for a schedule II opioid drug., 1 tablet By Mouth Daily, 160, cm, 01/19/21 15:0... Start Date: 01/31/21 Status: Ordered Multivitamins with Folic Acid 1 mg oral tablet 1 tablet, By Mouth, Daily, # 90 tablet, 3 Refills, Maintenance, 06/21/20 14:53:00 EST, Tablet, [facility]/pharmacy #1026, 1 tablet By Mouth Daily, 161, [...] 03/16/2020 2Patient reports she was hospitalized at [facility] in February 2020 due to an abscess [...] delivery of twin 6Currently in couseling through [facility] weekly on the phone. States currently feels safe and stable.Stopped taking medication due to . 7Currently sees Dr. Coulter for dermatology. No longer receives injections--states that she is on creams/ointments. States Dr. Coulter is aware of . Next appointment in August. 8Followed by dermatology (Dr. Coulter [facility]). Receives weekly injections/ derm is aware of Social History Social History Type Response Tobacco Use: 4 or less cigar ettes(less than 1/4 pack)/day in last 30 days. Other: Smokes 3-4 cigarettes daily. Declines NRT or smoking cessation. Sex
--- OUTSIDE RECORDS SUMMARY | 2023-03-27 19:00 | XMS_ITS | Continuity of Care Document ---
Author Name Unknown Organization [facility] Address [address] [place] [id number]- Care Team Providers Care Sales Force Developer Name Role Phone Alphonse CRUZ, Júnior Amezquita Primary Care Physician Encounter [facility] [place] Date(s): 01/02/22 - 02/15/[address] [id number] Attending Physician: Not on Staff, Attending MD Allergies, Adverse Reactions, Alerts No Known Allergies Immunizations Given and Recorded Vaccine Date Status Refusal Reason Influenza Virus Vaccine (oldterm) 1 06/11/20 Recor ded influ virus vac, H1N1, inactive(oldterm) 06/06/09 Given 1Result Comment: Patient states she received flu vaccine this month at [facility] Medications acetaminophen 500 mg oral tablet 2 tablet = 1,000 mg, By Mouth, Every 6 hours, PRN as needed for pain, # 50 tablet, 0 Refills, Maintenance, 11/13/19 18:24:00 EDT, Tablet, [facility]/pharmacy #1026, 161, cm, 11/13/19 16:06:00 EDT, Height [...] Replace Required Details, Route to Pharmacy Electronically, [facility] STORE [id number], 160, cm, 08/02/20 13:35:00 EST, Height, 53.2, kg,... Start Date: 09/04/20 Status: Ordered Multivitamins with Folic Acid 0.8 mg oral tablet 1 tablet, By Mouth, Daily, # 90 tablet, 2 Refills, Maintenance, 02/22/21 14:41:00 EDT, Tablet, [facility]/pharmacy #1026, Partial fill upon patient request if the prescription is for a schedule II opioid drug., 1 tablet By Mouth Daily, 160, cm, 01/19/21 15:0... Start Date: 02/22/21 Status: Ordered Multivitamins with Folic Acid 1 mg oral tablet 1 tablet, By Mouth, Daily, # 90 tablet, 2 Refills, Maintenance, 01/31/21 11:48:00 EDT, Tablet, [facility]/pharmacy #1026, Partial fill upon patient request if the prescription is for a schedule II opioid drug., 1 tablet By Mouth Daily, 160, cm, 01/19/21 15:0... Start Date: 01/31/21 Status: Ordered Multivitamins with Folic Acid 1 mg oral tablet 1 tablet, By Mouth, Daily, # 90 tablet, 3 Refills, Maintenance, 06/21/20 14:53:00 EST, Tablet, [facility]/pharmacy #1026, 1 tablet By Mouth Daily, 161, [...] 03/16/2020 2Patient reports she was hospitalized at [facility] in February 2020 due to an [...] delivery of twin 6Currently in couseling through [facility] weekly on the phone. States currently feels safe and stable.Stopped taking medication due to . 7Currently sees Dr. Coulter for dermatology. No longer receives injections--states that she is on creams/ointments. States Dr. Coulter is aware of . Next appointment in August. 8Followed by dermatology (Dr. Coulter [address] [facility]). Receives weekly injections/ derm is aware of Social History Social History Type Response Tobacco Use: 4 or less cigar ettes(less than 1/4 pack)/day in last 30 days. Other: Smokes 3-4 cigarettes daily. Declines NRT or smoking cessation. Sex
--- OUTSIDE RECORDS SUMMARY | 2023-03-27 19:00 | XMS_ITS | Continuity of Care Document ---
Author Name Unknown Organization [facility] Address [address] [place] [id number]- Care Team Providers Care Wallpaperer Helper Name Role Phone Alphonse CRUZ, Júnior Amezquita Primary Care Physician Encounter [facility] [place] [place] Date(s): 07/14/20 - 08/13/[address] [id number] Allergies, Adverse Reactions, Alerts Substance Reaction Severity Status NKA Active Immunizations Given and Recorded Vaccine Date Status Refusal Reason Influenza Virus Vaccine (oldterm) 1 06/11/20 Recor ded influ virus vac, H1N1, inactive(oldterm) 06/06/09 Given 1Result Comment: Patient states she received flu vaccine this month at [facility] Medications acetaminophen 500 mg oral tablet 2 tablet = 1,000 mg, By Mouth, Every 6 hours, PRN as needed for pain, # 50 tablet, 0 Refills, Maintenance, 11/13/19 18:24:00 EDT, Tablet, [facility]/pharmacy #1026, 161, cm, 11/13/19 16:06:00 EDT, [...] 1, tablet, By Mouth, Every 8 hours, PRN, # 30 tablet, Refills 0, Tot. Refills 0, Maintenance, Pain , Mild, 07/21/20 8:16:00 EST, Route to Pharmacy Electronically, [facility]/pharmacy #1026, Partial fill upon patient request if the prescription is for... Start Date: 07/21/20 Status: Ordered Multivitamins with Folic Acid 1 mg oral tablet 1 tablet, By Mouth, Daily, # 90 tablet, 3 Refills, Maintenance, 06/21/20 14:53:00 EST, Tablet, [facility]/pharmacy #1026, 1 tablet By Mouth Daily, [...] 03/16/2020 2Patient reports she was hospitalized at [facility] in February 2020 due to an [...] delivery of twin 6Currently in couseling through [facility] weekly on the phone. States currently feels safe and stable.Stopped taking medication due to . 7Currently sees Dr. Coulter for dermatology. No longer receives injections--states that she is on creams/ointments. States Dr. Coulter is aware of . Next appointment in August. 8Followed by dermatology (Dr. Coulter [address] [facility]). Receives weekly injections/ derm is aware of Social History Social History Type Response Tobacco Use: 4 or less cigar ettes(less than 1/4 pack)/day in last 30 days. Other: Smokes 3-4 cigarettes daily. Declines NRT or smoking cessation. Sex
--- OUTSIDE RECORDS SUMMARY | 2023-03-27 19:00 | XMS_ITS | Continuity of Care Document ---
Author Name Unknown Organization [facility] Address [address] [place] [phone]- Care Team Providers Care Paper Sealer Name Role Phone Alphonse CRUZ, Júnior Amezquita Primary Care Physician [phone] Encounter [facility] [place] Date(s): 01/23/21 - 02/22/[address] [address]- Allergies, Adverse Reactions, Alerts Substance Reaction Severity Status NKA Active Immunizations Given and Recorded Vaccine Date Status Refusal Reason Influenza Virus Vaccine (oldterm) 1 06/11/20 Recor ded influ virus vac, H1N1, inactive(oldterm) 06/06/09 Given 1Result Comment: Patient states she received flu vaccine this month at [facility] Medications acetaminophen 500 mg oral tablet 2 tablet = 1,000 mg, By Mouth, Every 6 hours, PRN as needed for pain, # 50 tablet, 0 Refills, Maintenance, 11/13/19 18:24:00 EDT, Tablet, [facility]/pharmacy #1026, 161, cm, 11/13/19 16:06:00 EDT, [...] Replace Required Details, Route to Pharmacy Electronically, [facility] STORE [id number], 160, cm, 08/02/20 13:35:00 EST, Height, 53.2, kg,... Start Date: 09/04/20 Status: Ordered Multivitamins with Folic Acid 0.8 mg oral tablet 1 tablet, By Mouth, Daily, # 90 tablet, 2 Refills, Maintenance, 02/22/21 14:41:00 EDT, Tablet, [facility]/pharmacy #1026, Partial fill upon patient request if the prescription is for a schedule II opioid drug., 1 tablet By Mouth Daily, 160, cm, 01/19/21 15:0... Start Date: 02/22/21 Status: Ordered Multivitamins with Folic Acid 1 mg oral tablet 1 tablet, By Mouth, Daily, # 90 tablet, 2 Refills, Maintenance, 01/31/21 11:48:00 EDT, Tablet, [facility]/pharmacy #1026, Partial fill upon patient request if the prescription is for a schedule II opioid drug., 1 tablet By Mouth Daily, 160, cm, 01/19/21 15:0... Start Date: 01/31/21 Status: Ordered Multivitamins with Folic Acid 1 mg oral tablet 1 tablet, By Mouth, Daily, # 90 tablet, 3 Refills, Maintenance, 06/21/20 14:53:00 EST, Tablet, [facility]/pharmacy #1026, 1 tablet By Mouth Daily, [...] 03/16/2020 2Patient reports she was hospitalized at [facility] in February 2020 due to an [...] delivery of twin 6Currently in couseling through [facility] weekly on the phone. States currently feels safe and stable.Stopped taking medication due to . 7Currently sees Dr. Coulter for dermatology. No longer receives injections--states that she is on creams/ointments. States Dr. Coulter is aware of . Next appointment in August. 8Followed by dermatology (Dr. Coulter 125 [facility]). Receives weekly injections/ derm is aware of Social History Social History Type Response Tobacco Use: 4 or less cigar ettes(less than 1/4 pack)/day in last 30 days. Other: Smokes 3-4 cigarettes daily. Declines NRT or smoking cessation. Sex
--- OUTSIDE RECORDS SUMMARY | 2023-03-27 19:00 | XMS_ITS | Continuity of Care Document ---
Author Name Unknown Organization [facility] Address [address] [place] [phone]- Care Team Providers Care Oiler Helper Name Role Phone Alphonse CRUZ, Júnior Amezquita Primary Care Physician [place] [facility] [place](s): 01/16/22 - 02/15/[address] [address]- Attending Physician: Admtr, Zeyad Allergies, Adverse Reactions, Alerts No Known Allergies Immunizations Given and Recorded Vaccine Date Status Refusal Reason Influenza Virus Vaccine (oldterm) 1 06/11/20 Recor ded influ virus vac, H1N1, inactive(oldterm) 06/06/09 Given 1Result Comment: Patient states she received flu vaccine this month at [facility] Medications acetaminophen 500 mg oral tablet 2 tablet = 1,000 mg, By Mouth, Every 6 hours, PRN as needed for pain, # 50 tablet, 0 Refills, Maintenance, 11/13/19 18:24:00 EDT, Tablet, [facility]/pharmacy #1026, 161, cm, 11/13/19 16:06:00 EDT, [...] Replace Required Details, Route to Pharmacy Electronically, [facility] STORE [id number], 160, cm, 08/02/20 13:35:00 EST, Height, 53.2, kg,... Start Date: 09/04/20 Status: Ordered Multivitamins with Folic Acid 0.8 mg oral tablet 1 tablet, By Mouth, Daily, # 90 tablet, 2 Refills, Maintenance, 02/22/21 14:41:00 EDT, Tablet, [facility]/pharmacy #1026, Partial fill upon patient request if the prescription is for a schedule II opioid drug., 1 tablet By Mouth Daily, 160, cm, 01/19/21 15:0... Start Date: 02/22/21 Status: Ordered Multivitamins with Folic Acid 1 mg oral tablet 1 tablet, By Mouth, Daily, # 90 tablet, 2 Refills, Maintenance, 01/31/21 11:48:00 EDT, Tablet, [facility]/pharmacy #1026, Partial fill upon patient request if the prescription is for a schedule II opioid drug., 1 tablet By Mouth Daily, 160, cm, 01/19/21 15:0... Start Date: 01/31/21 Status: Ordered Multivitamins with Folic Acid 1 mg oral tablet 1 tablet, By Mouth, Daily, # 90 tablet, 3 Refills, Maintenance, 06/21/20 14:53:00 EST, Tablet, [facility]/pharmacy #1026, 1 tablet By Mouth Daily, [...] 03/16/2020 2Patient reports she was hospitalized at [facility] in February 2020 due to an [...] delivery of twin 6Currently in couseling through [facility] weekly on the phone. States currently feels safe and stable.Stopped taking medication due to . 7Currently sees Dr. Coulter for dermatology. No longer receives injections--states that she is on creams/ointments. States Dr. Coulter is aware of . Next appointment in August. 8Followed by dermatology (Dr. Coulter [facility]). Receives weekly injections/ derm is aware of Social History Social History Type Response Tobacco Use: 4 or less cigar ettes(less than 1/4 pack)/day in last 30 days. Other: Smokes 3-4 cigarettes daily. Declines NRT or smoking cessation. Sex
--- OUTSIDE RECORDS SUMMARY | 2023-03-27 19:00 | XMS_ITS | Continuity of Care Document ---
Author Name Unknown Organization [facility] Address [address] [place] [address]- Care Team Providers Care Jig Worker Name Role Phone Alphonse CRUZ, Júnior Amezquita Primary Care Physician [phone] Encounter [facility] [place] Date(s): 08/02/20 - 09/01/[address] [address] Attending Physician: Admtr, Ar8 Allergies, Adverse Reactions, Alerts Substance Reaction Severity Status NKA Active Immunizations Given and Recorded Vaccine Date Status Refusal Reason Influenza Virus Vaccine (oldterm) 1 06/11/20 Recor ded influ virus vac, H1N1, inactive(oldterm) 06/06/09 Given 1Result Comment: Patient states she received flu vaccine this month at [facility] Medications acetaminophen 500 mg oral tablet 2 tablet = 1,000 mg, By Mouth, Every 6 hours, PRN as needed for pain, # 50 tablet, 0 Refills, Maintenance, 11/13/19 18:24:00 EDT, Tablet, [facility]/pharmacy #[id number], 161, cm, 11/13/19 16:06:00 EDT, Height [...] 8:16:00 EST, Route to Pharmacy Electronically, [facility]/pharmacy #[id number], Partial fill upon patient request if the prescription is for... Start Date: 07/21/20 Status: Ordered Multivitamins with Folic Acid 1 mg oral tablet 1 tablet, By Mouth, Daily, # 90 tablet, 3 Refills, Maintenance, 06/21/20 14:53:00 EST, Tablet, [facility]/pharmacy #1026, 1 tablet By Mouth Daily, 161, [...] 03/16/2020 2Patient reports she was hospitalized at [facility] in February 2020 due to an abscess [...] in couseling through [facility] weekly on the phone. States currently feels safe and stable.Stopped taking medication due to . 7Currently sees Dr. Coulter for dermatology. No longer receives injections--states that she is on creams/ointments. States Dr. Coulter is aware of . Next appointment in August. 8Followed by dermatology (Dr. Coulter [address] [place] [address]). Receives weekly injections/ derm is aware of Social History Social History Type Response Tobacco Use: 4 or less cigar ettes(less than 1/4 pack)/day in last 30 days. Other: Smokes 3-4 cigarettes daily. Declines NRT or smoking cessation. Sex
--- OUTSIDE RECORDS SUMMARY | 2023-03-27 19:00 | XMS_ITS | Continuity of Care Document ---
Author Name Unknown Organization [facility] Address [address] [place] [address]- Care Team Providers Care Tester Armature Or Fields Name Role Phone Alphonse CRUZ, Júnior Amezquita Primary Care Physician [place] [facility] [place] - 09/29/[address] [address]- Allergies, Adverse Reactions, Alerts Substance Reaction Severity Status NKA Active Immunizations Given and Recorded Vaccine Date Status Refusal Reason Influenza Virus Vaccine (oldterm) 1 06/11/20 Recor ded influ virus vac, H1N1, inactive(oldterm) 06/06/09 Given 1Result Comment: Patient states she received flu vaccine this month at [facility] Medications acetaminophen 500 mg oral tablet 2 tablet = 1,000 mg, By Mouth, Every 6 hours, PRN as needed for pain, # 50 tablet, 0 Refills, Maintenance, 11/13/19 18:24:00 EDT, Tablet, [facility]/pharmacy #[id number], 161, cm, 11/13/19 16:06:00 EDT, [...] Replace Required Details, Route to Pharmacy Electronically, [facility] STORE [id number], 160, cm, 08/02/20 13:35:00 EST, Height, 53.2, [...] 03/16/2020 2Patient reports she was hospitalized at [facility] in February 2020 due to an [...] of twin 6Currently in couseling through [facility] weekly on the phone. States currently feels safe and stable.Stopped taking medication due to . 7Currently sees Dr. Coulter for dermatology. No longer receives injections--states that she is on creams/ointments. States Dr. Coulter is aware of . Next appointment in August. 8Followed by dermatology (Dr. Coulter [facility]). Receives weekly injections/ derm is aware of Social History Social History Type Response Tobacco Use: 4 or less cigar ettes(less than 1/4 pack)/day in last 30 days. Other: Smokes 3-4 cigarettes daily. Declines NRT or smoking cessation. Sex
--- OUTSIDE RECORDS SUMMARY | 2023-03-27 19:00 | XMS_ITS | Continuity of Care Document ---
Author Name Unknown Organization [facility] Address [address] [place] [address]- Care Team Providers Care Health Safety Manager Name Role Phone Donny Chery NP Primary Care Physician [phone] Encounter [facility] [place] Date(s): 11/03/19 - 12/31/[address] [address]- [facility] Attending Physician: Not on Staff, Attending MD Referring Physician: Donny Chery NP Allergies, Adverse Reactions, Alerts Substance Reaction Severity [...] 11/13/19 18:24:00 EDT, Route to Pharmacy Electronically, [facility]/pharmacy #[id number], 161, cm, 11/13/19 16:06:00 EDT, Height Start Date: 11/13/19 Status: Ordered miSOPROStol 200 mcg oral tablet 4 tablet = 800 mcg, Vaginally, Once, # 4 tablet, 0 Refills, Soft Stop, 11/13/19 18:22:00 EDT, [facility]/pharmacy #[id number], 161, cm, 11/13/19 16:06:00 EDT, [...] 3 Refills, Maintenance, 11/03/19 11:54:00 EDT, Tablet, [facility] [place], [place] -, 1 tablet By Mouth Daily, [...] 1 Active 1Followed by dermatology (Dr. Coulter [address] [place] [address]). Receives weekly injections/ derm is aware of Social History Social History Type Response Tobacco Use: 4 or less cigar ettes(less than 1/4 pack)/day in last 30 days. Other: Patient states she is trying to stop smoking now that she is / smokes 3-4 cigarettes daily. Sex
--- OUTSIDE RECORDS SUMMARY | 2023-03-27 19:00 | XMS_ITS | Continuity of Care Document ---
Author Name Unknown Organization [facility] Address [address] [place] [address]- Care Team Providers Care Store Specialist Name Role Phone Alphonse CRUZ, Júnior Amezquita Primary Care Physician [place] [facility] [place] 04/25/[place] - 05/30/[address] [address]- Attending Physician: Jose CRUZ, Donny Dumont Admitting Physician: Jose CRUZ, Donny Dumont Referring Physician: Ines Feng MD Allergies, Adverse Reactions, Alerts Substance Reaction Severity Status NKA Active Immunizations Given and Recorded Vaccine Date Status Refusal Reason Influenza Virus Vaccine (oldterm) 1 06/11/20 Recor ded influ virus vac, H1N1, inactive(oldterm) 06/06/09 Given 1Result Comment: Patient states she received flu vaccine this month at [facility] Medications acetaminophen 500 mg oral tablet 2 tablet = 1,000 mg, By Mouth, Every 6 hours, PRN as needed for pain, # 50 tablet, 0 Refills, Maintenance, 11/13/19 18:24:00 EDT, Tablet, [facility]/pharmacy #1026, 161, cm, 11/13/19 16:06:00 [...] Replace Required Details, Route to Pharmacy Electronically, [facility] STORE [id number], 160, cm, 08/02/20 13:35:00 EST, Height, 53.2, kg,... Start Date: 09/04/20 Status: Ordered Multivitamins with Folic Acid 0.8 mg oral tablet 1 tablet, By Mouth, Daily, # 90 tablet, 2 Refills, Maintenance, 02/22/21 14:41:00 EDT, Tablet, [facility]/pharmacy #1026, Partial fill upon patient request if the prescription is for a schedule II opioid drug., 1 tablet By Mouth Daily, 160, cm, 01/19/21 15:0... Start Date: 02/22/21 Status: Ordered Multivitamins with Folic Acid 1 mg oral tablet 1 tablet, By Mouth, Daily, # 90 tablet, 2 Refills, Maintenance, 01/31/21 11:48:00 EDT, Tablet, [facility]/pharmacy #1026, Partial fill upon patient request if the prescription is for a schedule II opioid drug., 1 tablet By Mouth Daily, 160, cm, 01/19/21 15:0... Start Date: 01/31/21 Status: Ordered Multivitamins with Folic Acid 1 mg oral tablet 1 tablet, By Mouth, Daily, # 90 tablet, 3 Refills, Maintenance, 06/21/20 14:53:00 EST, Tablet, [facility]/pharmacy #1026, 1 tablet By Mouth Daily, [...] 2Patient reports she was hospitalized at [facility] in February 2020 due to an [...] delivery of twin 6Currently in couseling through [facility] weekly on the phone. States currently feels safe and stable.Stopped taking medication due to . 7Currently sees Dr. Coulter for dermatology. No longer receives injections--states that she is on creams/ointments. States Dr. Coulter is aware of . Next appointment in August. 8Followed by dermatology (Dr. Coulter [facility]). Receives weekly injections/ derm is aware of Social History Social History Type Response Tobacco Use: 4 or less cigar ettes(less than 1/4 pack)/day in last 30 days. Other: Smokes 3-4 cigarettes daily. Declines NRT or smoking cessation. Sex
--- OUTSIDE RECORDS SUMMARY | 2023-03-27 19:00 | XMS_ITS | Continuity of Care Document ---
Author Name Unknown Organization [facility] Address [address] [place] [address]- Care Team Providers Care Welder Gun Name Role Phone Donny Chery NP Primary Care Physician [place] [facility] [place] Date(s): 11/11/19 - 12/24/[facility] [address] [place] [address]- [facility] Attending Physician: Ollie Jacobson MD Admitting Physician: Indira CRUZ, Ollie Referring Physician: Joshua GRANDA, PACKAGING SALES CONSULTANT, Tanesha Green Allergies, Adverse Reactions, Alerts Substance Reaction Severity [...] 11/13/19 18:24:00 EDT, Route to Pharmacy Electronically, [facility]/pharmacy #[id number], 161, cm, 11/13/19 16:06:00 EDT, Height Start Date: 11/13/19 Status: Ordered miSOPROStol 200 mcg oral tablet 4 tablet = 800 mcg, Vaginally, Once, # 4 tablet, 0 Refills, Soft Stop, 11/13/19 18:22:00 EDT, [facility]/pharmacy #1026, 161, cm, 11/13/19 16:06:00 EDT, [...] 3 Refills, Maintenance, 11/03/19 11:54:00 EDT, Tablet, [facility] [place] [place] -, 1 tablet By Mouth Daily, [...] 1 Active 1Followed by dermatology (Dr. Coulter [address] [place] [address]). Receives weekly injections/ derm is aware of Social History Social History Type Response Tobacco Use: 4 or less cigar ettes(less than 1/4 pack)/day in last 30 days. Other: Patient states she is trying to stop smoking now that she is / smokes 3-4 cigarettes daily. Sex
--- OUTSIDE RECORDS SUMMARY | 2023-03-27 19:00 | XMS_ITS | Continuity of Care Document ---
Author Name Unknown Organization [facility] Address [address] [place] [address]- Care Team Providers Care Machine Shop Inspector Name Role Phone Alphonse CRUZ, Júnior Amezquita Primary Care Physician [place] [facility] [place] - 05/17/[address] [address]- Attending Physician: Delisa Faith MD Admitting Physician: Delisa Faith MD Referring Physician: Ines Feng MD Allergies, Adverse Reactions, Alerts Substance Reaction Severity Status NKA Active Immunizations Given and Recorded Vaccine Date Status Refusal Reason Influenza Virus Vaccine (oldterm) 1 06/11/20 Recor ded influ virus vac, H1N1, inactive(oldterm) 06/06/09 Given 1Result Comment: Patient states she received flu vaccine this month at [facility] Medications acetaminophen 500 mg oral tablet 2 tablet = 1,000 mg, By Mouth, Every 6 hours, PRN as needed for pain, # 50 tablet, 0 Refills, Maintenance, 11/13/19 18:24:00 EDT, Tablet, [facility]/pharmacy #1026, 161, cm, 11/13/19 16:06:00 [...] Replace Required Details, Route to Pharmacy Electronically, [facility] STORE [id number], 160, cm, 08/02/20 13:35:00 EST, Height, 53.2, kg,... Start Date: 09/04/20 Status: Ordered Multivitamins with Folic Acid 0.8 mg oral tablet 1 tablet, By Mouth, Daily, # 90 tablet, 2 Refills, Maintenance, 02/22/21 14:41:00 EDT, Tablet, [facility]/pharmacy #1026, Partial fill upon patient request if the prescription is for a schedule II opioid drug., 1 tablet By Mouth Daily, 160, cm, 01/19/21 15:0... Start Date: 02/22/21 Status: Ordered Multivitamins with Folic Acid 1 mg oral tablet 1 tablet, By Mouth, Daily, # 90 tablet, 2 Refills, Maintenance, 01/31/21 11:48:00 EDT, Tablet, [facility]/pharmacy #1026, Partial fill upon patient request if the prescription is for a schedule II opioid drug., 1 tablet By Mouth Daily, 160, cm, 01/19/21 15:0... Start Date: 01/31/21 Status: Ordered Multivitamins with Folic Acid 1 mg oral tablet 1 tablet, By Mouth, Daily, # 90 tablet, 3 Refills, Maintenance, 06/21/20 14:53:00 EST, Tablet, [facility]/pharmacy #1026, 1 tablet By Mouth [...] 03/16/2020 2Patient reports she was hospitalized at [facility] in February 2020 due to [...] of twin 6Currently in couseling through [facility] weekly on the phone. States currently feels safe and stable.Stopped taking medication due to . 7Currently sees Dr. Coulter for dermatology. No longer receives injections--states that she is on creams/ointments. States Dr. Coulter is aware of . Next appointment in August. 8Followed by dermatology (Dr. Coulter [address] [facility]). Receives weekly injections/ derm is aware of Social History Social History Type Response Tobacco Use: 4 or less cigar ettes(less than 1/4 pack)/day in last 30 days. Other: Smokes 3-4 cigarettes daily. Declines NRT or smoking cessation. Sex
--- OUTSIDE RECORDS SUMMARY | 2023-03-27 19:00 | XMS_ITS | Continuity of Care Document ---
Author Name Unknown Organization [facility] Address [address] [place] [address]- Care Team Providers Care Mailroom Personnel Name Role Phone Alphonse CRUZ, Júnior Amezquita Primary Care Physician [place] [facility] [place] Date(s): 10/09/21 - 11/08/[address] [address]- Attending Physician: Admtr, Zeyad Allergies, Adverse Reactions, Alerts No Known Allergies Immunizations Given and Recorded Vaccine Date Status Refusal Reason Influenza Virus Vaccine (oldterm) 1 06/11/20 Recor ded influ virus vac, H1N1, inactive(oldterm) 06/06/09 Given 1Result Comment: Patient states she received flu vaccine this month at [facility] Medications acetaminophen 500 mg oral tablet 2 tablet = 1,000 mg, By Mouth, Every 6 hours, PRN as needed for pain, # 50 tablet, 0 Refills, Maintenance, 11/13/19 18:24:00 EDT, Tablet, [facility]/pharmacy #1026, 161, cm, 11/13/19 16:06:00 EDT, [...] Replace Required Details, Route to Pharmacy Electronically, [facility] STORE [id number], 160, cm, 08/02/20 13:35:00 EST, Height, 53.2, kg,... Start Date: 09/04/20 Status: Ordered Multivitamins with Folic Acid 0.8 mg oral tablet 1 tablet, By Mouth, Daily, # 90 tablet, 2 Refills, Maintenance, 02/22/21 14:41:00 EDT, Tablet, [facility]/pharmacy #1026, Partial fill upon patient request if the prescription is for a schedule II opioid drug., 1 tablet By Mouth Daily, 160, cm, 01/19/21 15:0... Start Date: 02/22/21 Status: Ordered Multivitamins with Folic Acid 1 mg oral tablet 1 tablet, By Mouth, Daily, # 90 tablet, 2 Refills, Maintenance, 01/31/21 11:48:00 EDT, Tablet, [facility]/pharmacy #1026, Partial fill upon patient request if the prescription is for a schedule II opioid drug., 1 tablet By Mouth Daily, 160, cm, 01/19/21 15:0... Start Date: 01/31/21 Status: Ordered Multivitamins with Folic Acid 1 mg oral tablet 1 tablet, By Mouth, Daily, # 90 tablet, 3 Refills, Maintenance, 06/21/20 14:53:00 EST, Tablet, [facility]/pharmacy #1026, 1 tablet By Mouth Daily, [...] 03/16/2020 2Patient reports she was hospitalized at [facility] in February 2020 due to an [...] delivery of twin 6Currently in couseling through [facility] weekly on the phone. States currently feels safe and stable.Stopped taking medication due to . 7Currently sees Dr. Coulter for dermatology. No longer receives injections--states that she is on creams/ointments. States Dr. Coulter is aware of . Next appointment in August. 8Followed by dermatology (Dr. Coulter [facility]). Receives weekly injections/ derm is aware of Social History Social History Type Response Tobacco Use: 4 or less cigar ettes(less than 1/4 pack)/day in last 30 days. Other: Smokes 3-4 cigarettes daily. Declines NRT or smoking cessation. Sex
--- OUTSIDE RECORDS SUMMARY | 2023-03-27 19:00 | XMS_ITS | Continuity of Care Document ---
Author Name Unknown Organization [facility] Address [address] [place] [address]- Care Team Providers Care Brazing Furnace Operator Name Role Phone Donny Chery NP Primary Care Physician En[place] [facility] [place] Date(s): 04/10/20 - 05/10/20 [facility] [address] [place] [address]- [facility] Attending Physician: Zeyad Smart Admitting Physician: Zeyad Smart Referring Physician: AdmtrZeyad Allergies, Adverse Reactions, Alerts Substance Reaction Severity [...] 11/13/19 18:24:00 EDT, Route to Pharmacy Electronically, [id number], 161, cm, 11/13/19 16:06:00 EDT, Height Start Date: 11/13/19 Status: Ordered Lovenox 40 mg/0.4 mL injectable solution See Instructions, Subcutaneous Infusion Daily, 0 Refills, Maintenance, 03/16/20 13:48:00 EDT Start Date: 03/16/20 Status: Ordered miSOPROStol 200 mcg oral tablet 4 tablet = 800 mcg, Vaginally, Once, # 4 tablet, 0 Refills, Soft Stop, 11/13/19 18:22:00 EDT, [facility] #1026, 161, cm, 11/13/19 16:06:00 [...] 3 Refills, Maintenance, 11/03/19 11:54:00 EDT, Tablet, [facility] [place], [place] -, 1 tablet By Mouth Daily, [...] 1 Active 1Followed by dermatology (Dr. Coulter [address] [place] [address]). Receives weekly injections/ derm is aware of Social History Social History Type Response Tobacco Use: 4 or less cigar ettes(less than 1/4 pack)/day in last 30 days. Other: Patient states she is trying to stop smoking now that she is / smokes 3-4 cigarettes daily. Sex
--- OUTSIDE RECORDS SUMMARY | 2023-03-27 19:00 | XMS_ITS | Continuity of Care Document ---
Author Name Unknown Organization [facility] Address [address] [place] [address]- Care Team Providers Care Hand Grinder Name Role Phone Miri FAIRBANKS, Donny Primary Care Physician [place] [facility] [place] 03/22/20 - 04/21/20 [facility] [address] [place] [address]- [facility] Allergies, Adverse Reactions, Alerts Substance Reaction Severity [...] 11/13/19 18:24:00 EDT, Route to Pharmacy Electronically, [facility]/pharmacy #[id number], 161, cm, 11/13/19 16:06:00 EDT, Height Start Date: 11/13/19 Status: Ordered Lovenox 40 mg/0.4 mL injectable solution See Instructions, Subcutaneous Infusion Daily, 0 Refills, Maintenance, 03/16/20 13:48:00 EDT Start Date: 03/16/20 Status: Ordered miSOPROStol 200 mcg oral tablet 4 tablet = 800 mcg, Vaginally, Once, # 4 tablet, 0 Refills, Soft Stop, 11/13/19 18:22:00 EDT, [facility]/pharmacy #1026, 161, cm, 11/13/19 16:06:00 EDT, [...] 3 Refills, Maintenance, 11/03/19 11:54:00 EDT, Tablet, [facility] [place], [place] -, 1 tablet By Mouth Daily, [...] 1 Active 1Followed by dermatology (Dr. Coulter [address] [place] [address]). Receives weekly injections/ derm is aware of Social History Social History Type Response Tobacco Use: 4 or less cigar ettes(less than 1/4 pack)/day in last 30 days. Other: Patient states she is trying to stop smoking now that she is / smokes 3-4 cigarettes daily. Sex
--- OUTSIDE RECORDS SUMMARY | 2023-03-27 19:00 | XMS_ITS | Continuity of Care Document ---
Author Name Unknown Organization [facility] Address [address] [place] [address]- Care Team Providers Care State Farm Agent Team Member Name Role Phone Donny Chery NP Primary Care Physician [place] [facility] [place] 11/04/19 - 11/14/[address] [address] [facility] Attending Physician: Admtr, Zeyad Allergies, Adverse Reactions, Alerts Substance Reaction Severity [...] 11/13/19 18:24:00 EDT, Route to Pharmacy Electronically, [facility]/pharmacy #[id number], 161, cm, 11/13/19 16:06:00 EDT, Height Start Date: 11/13/19 Status: Ordered miSOPROStol 200 mcg oral tablet 4 tablet = 800 mcg, Vaginally, Once, # 4 tablet, 0 Refills, Soft Stop, 11/13/19 18:22:00 EDT, [facility]/pharmacy #[id number], 161, cm, 11/13/19 16:06:00 EDT, [...] 3 Refills, Maintenance, 11/03/19 11:54:00 EDT, Tablet, [facility] [place] [place] -, 1 tablet By Mouth Daily, [...] 1 Active 1Followed by dermatology (Dr. Coulter [facility]). Receives weekly injections/ derm is aware of Social History Social History Type Response Tobacco Use: 4 or less cigar ettes(less than 1/4 pack)/day in last 30 days. Other: Patient states she is trying to stop smoking now that she is / smokes 3-4 cigarettes daily. Sex
--- OUTSIDE RECORDS SUMMARY | 2023-03-27 19:00 | XMS_ITS | Continuity of Care Document ---
Author Name Unknown Organization [facility] Address [address] [place] [address]- Care Team Providers Care Prison Teacher Name Role Phone Alphonse CRUZ, Júnior Amezquita Primary Care Physician Encounter [facility] Date(s): 06/20/22 - 07/20/[address] [id number] Allergies, Adverse Reactions, Alerts No Known Allergies Immunizations Given and Recorded Vaccine Date Status Refusal Reason Influenza Virus Vaccine (oldterm) 1 06/11/20 Recor ded influ virus vac, H1N1, inactive(oldterm) 06/06/09 Given 1Result Comment: Patient states she received flu vaccine this month at [facility] Medications acetaminophen 500 mg oral tablet 2 tablet = 1,000 mg, By Mouth, Every 6 hours, PRN as needed for pain, # 50 tablet, 0 Refills, Maintenance, 11/13/19 18:24:00 EDT, Tablet, [facility]/pharmacy #[id number], 161, cm, 11/13/19 16:06:00 EDT, [...] Replace Required Details, Route to Pharmacy Electronically, [facility] STORE [id number], 160, cm, 08/02/20 13:35:00 EST, Height, 53.2, kg,... Start Date: 09/04/20 Status: Ordered Multivitamins with Folic Acid 1 mg oral tablet 1 tablet, By Mouth, Daily, # 90 tablet, 3 Refills, Maintenance, 06/20/22 17:35:00 EST, Tablet, [facility], Partial fill upon patient request if the prescription is for a schedule II opioid drug., 1 tablet By Mouth Daily, 160, cm, 01/19/21 15:0... Start Date: 06/20/22 Status: Ordered ProAir HFA 90 mcg/inh inhalation [...] Date: 07/03/20 Status: Ordered Problem List Condition Confirmation Course Effective Dates Status Health St atus Informant Abnormal uterine bleeding (AUB) 1 Confirmed Active Anemia 2 Confirmed Active Anxiety Confirmed Active COPD (chronic obstructive pulmonary disease) 3 Confirmed Active DVT (deep venous thrombosis) 4 Confirmed 03/2020 Active Depression Confirmed Active History of twin in prior Confirmed 2009 Active History of delivery, currently 5 Confirmed 2009 Active Marijuana user Confirmed Active PTSD (post-traumatic stress disorder) 6 Confirmed Active Psoriasis 7, 8 Confirmed Active 1Seen in office 03/16/2020 2Patient reports she was hospitalized at [facility] in February 2020 due to an [...] daily. Declines NRT or smoking cessation. Sex Patient Care team information Care Team Personnel Name: Júnior Cunha MD Position: [facility] Outreach Member Role: PCP Address: Address: [address] [place] [address]- [place] Care Team Related Persons Name: KAELYNTASHIA JOSE Address: home [address] [place] [address]
--- OUTSIDE RECORDS SUMMARY | 2023-03-27 19:00 | XMS_ITS | Continuity of Care Document ---
Author Name Unknown Organization [facility] Address [address] [place] [address]- Care Team Providers Care Adjunct Writing Instructor Name Role Phone Alphonse CRUZ, Júnior Amezquita Primary Care Physician [place] [facility] [place] 09/27/[place] - 11/08/[address] [address]- Attending Physician: Not on Staff, Attending MD Allergies, Adverse Reactions, Alerts No Known Allergies Immunizations Given and Recorded Vaccine Date Status Refusal Reason Influenza Virus Vaccine (oldterm) 1 06/11/20 Recor ded influ virus vac, H1N1, inactive(oldterm) 06/06/09 Given 1Result Comment: Patient states she received flu vaccine this month at [facility] Medications acetaminophen 500 mg oral tablet 2 tablet = 1,000 mg, By Mouth, Every 6 hours, PRN as needed for pain, # 50 tablet, 0 Refills, Maintenance, 11/13/19 18:24:00 EDT, Tablet, [facility]/pharmacy #1026, 161, [...] Replace Required Details, Route to Pharmacy Electronically, [facility] STORE [id number], 160, cm, 08/02/20 13:35:00 EST, Height, 53.2, kg,... Start Date: 09/04/20 Status: Ordered Multivitamins with Folic Acid 0.8 mg oral tablet 1 tablet, By Mouth, Daily, # 90 tablet, 2 Refills, Maintenance, 02/22/21 14:41:00 EDT, Tablet, [facility]/pharmacy #1026, Partial fill upon patient request if the prescription is for a schedule II opioid drug., 1 tablet By Mouth Daily, 160, cm, 01/19/21 15:0... Start Date: 02/22/21 Status: Ordered Multivitamins with Folic Acid 1 mg oral tablet 1 tablet, By Mouth, Daily, # 90 tablet, 2 Refills, Maintenance, 01/31/21 11:48:00 EDT, Tablet, [facility]/pharmacy #1026, Partial fill upon patient request if the prescription is for a schedule II opioid drug., 1 tablet By Mouth Daily, 160, cm, 01/19/21 15:0... Start Date: 01/31/21 Status: Ordered Multivitamins with Folic Acid 1 mg oral tablet 1 tablet, By Mouth, Daily, # 90 tablet, 3 Refills, Maintenance, 06/21/20 14:53:00 EST, Tablet, [facility]/pharmacy #1026, 1 tablet By Mouth [...] 03/16/2020 2Patient reports she was hospitalized at [facility] in February 2020 due to an [...] delivery of twin 6Currently in couseling through [facility] weekly on the phone. States currently feels safe and stable.Stopped taking medication due to . 7Currently sees Dr. Coulter for dermatology. No longer receives injections--states that she is on creams/ointments. States Dr. Coulter is aware of . Next appointment in August. 8Followed by dermatology (Dr. Coulter [address] [facility]). Receives weekly injections/ derm is aware of Social History Social History Type Response Tobacco Use: 4 or less cigar ettes(less than 1/4 pack)/day in last 30 days. Other: Smokes 3-4 cigarettes daily. Declines NRT or smoking cessation. Sex
--- OUTSIDE RECORDS SUMMARY | 2023-03-27 19:01 | XMS_ITS | Continuity of Care Document ---
Author Name Unknown Organization [facility] Address [address] [place] [address]- Care Team Providers Care Volumetric Weigher Name Role Phone Alphonse CRUZ, Júnior Amezquita Primary Care Physician [place] [facility] [place]/17/[place] - 05/17/[address] [address]- Attending Physician: Admtr, Ar8 Allergies, Adverse Reactions, Alerts Substance Reaction Severity Status NKA Active Immunizations Given and Recorded Vaccine Date Status Refusal Reason Influenza Virus Vaccine (oldterm) 1 06/11/20 Recor ded influ virus vac, H1N1, inactive(oldterm) 06/06/09 Given 1Result Comment: Patient states she received flu vaccine this month at [facility] Medications acetaminophen 500 mg oral tablet 2 tablet = 1,000 mg, By Mouth, Every 6 hours, PRN as needed for pain, # 50 tablet, 0 Refills, Maintenance, 11/13/19 18:24:00 EDT, Tablet, [facility]/pharmacy #1026, 161, cm, 11/13/19 16:06:00 EDT, [...] Required Details, Route to Pharmacy Electronically, [facility] STORE [id number], 160, cm, 08/02/20 13:35:00 EST, Height, 53.2, kg,... Start Date: 09/04/20 Status: Ordered Multivitamins with Folic Acid 0.8 mg oral tablet 1 tablet, By Mouth, Daily, # 90 tablet, 2 Refills, Maintenance, 02/22/21 14:41:00 EDT, Tablet, [facility]/pharmacy #1026, Partial fill upon patient request if the prescription is for a schedule II opioid drug., 1 tablet By Mouth Daily, 160, cm, 01/19/21 15:0... Start Date: 02/22/21 Status: Ordered Multivitamins with Folic Acid 1 mg oral tablet 1 tablet, By Mouth, Daily, # 90 tablet, 2 Refills, Maintenance, 01/31/21 11:48:00 EDT, Tablet, [facility]/pharmacy #1026, Partial fill upon patient request if the prescription is for a schedule II opioid drug., 1 tablet By Mouth Daily, 160, cm, 01/19/21 15:0... Start Date: 01/31/21 Status: Ordered Multivitamins with Folic Acid 1 mg oral tablet 1 tablet, By Mouth, Daily, # 90 tablet, 3 Refills, Maintenance, 06/21/20 14:53:00 EST, Tablet, [facility]/pharmacy #1026, 1 tablet By Mouth Daily, [...] 03/16/2020 2Patient reports she was hospitalized at [facility] in February 2020 due to an abscess [...] 6Currently in couseling through [facility] weekly on the phone. States currently feels safe and stable.Stopped taking medication due to . 7Currently sees Dr. Coulter for dermatology. No longer receives injections--states that she is on creams/ointments. States Dr. Coulter is aware of . Next appointment in August. 8Followed by dermatology (Dr. Coulter [address] [facility]). Receives weekly injections/ derm is aware of Social History Social History Type Response Tobacco Use: 4 or less cigar ettes(less than 1/4 pack)/day in last 30 days. Other: Smokes 3-4 cigarettes daily. Declines NRT or smoking cessation. Sex
--- OUTSIDE RECORDS SUMMARY | 2023-03-27 19:01 | XMS_ITS | Continuity of Care Document ---
Author Name Unknown Organization [facility] Address [address] [place] [address]- Care Team Providers Care Echocardiograph Technician Name Role Phone Alphonse CRUZ, Júnior Amezquita Primary Care Physician Encounter [facility] [place] Date(s): 03/09/21 - 04/08/[address] [address]- Allergies, Adverse Reactions, Alerts Substance Reaction Severity Status NKA Active Immunizations Given and Recorded Vaccine Date Status Refusal Reason Influenza Virus Vaccine (oldterm) 1 06/11/20 Recor ded influ virus vac, H1N1, inactive(oldterm) 06/06/09 Given 1Result Comment: Patient states she received flu vaccine this month at [facility] Medications acetaminophen 500 mg oral tablet 2 tablet = 1,000 mg, By Mouth, Every 6 hours, PRN as needed for pain, # 50 tablet, 0 Refills, Maintenance, 11/13/19 18:24:00 EDT, Tablet, [facility]/pharmacy #1026, 161, cm, 11/13/19 16:06:00 [...] Replace Required Details, Route to Pharmacy Electronically, [facility] STORE [id number], 160, cm, 08/02/20 13:35:00 EST, Height, 53.2, kg,... Start Date: 09/04/20 Status: Ordered Multivitamins with Folic Acid 0.8 mg oral tablet 1 tablet, By Mouth, Daily, # 90 tablet, 2 Refills, Maintenance, 02/22/21 14:41:00 EDT, Tablet, [facility], Partial fill upon patient request if the prescription is for a schedule II opioid drug., 1 tablet By Mouth Daily, 160, cm, 01/19/21 15:0... Start Date: 02/22/21 Status: Ordered Multivitamins with Folic Acid 1 mg oral tablet 1 tablet, By Mouth, Daily, # 90 tablet, 2 Refills, Maintenance, 01/31/21 11:48:00 EDT, Tablet, [facility]/pharmacy #1026, Partial fill upon patient request if the prescription is for a schedule II opioid drug., 1 tablet By Mouth Daily, 160, cm, 01/19/21 15:0... Start Date: 01/31/21 Status: Ordered Multivitamins with Folic Acid 1 mg oral tablet 1 tablet, By Mouth, Daily, # 90 tablet, 3 Refills, Maintenance, 06/21/20 14:53:00 EST, Tablet, [facility]/pharmacy #1026, 1 tablet By Mouth [...] 2009 Active History of delivery, currently (Confirmed) 5 2009 Active Marijuana user(Confirmed) Active PTSD (post-traumatic stress disorder)(Confirmed) 6 Active Psoriasis(Confirmed) 7, 8 Active 1Seen in office 03/16/2020 2Patient reports she was hospitalized at [facility] in February 2020 due to an [...] delivery of twin 6Currently in couseling through [facility] weekly on the phone. States currently feels safe and stable.Stopped taking medication due to . 7Currently sees Dr. Coulter for dermatology. No longer receives injections--states that she is on creams/ointments. States Dr. Coulter is aware of . Next appointment in August. 8Followed by dermatology (Dr. Coulter [address] [facility]). Receives weekly injections/ derm is aware of Social History Social History Type Response Tobacco Use: 4 or less cigar ettes(less than 1/4 pack)/day in last 30 days. Other: Smokes 3-4 cigarettes daily. Declines NRT or smoking cessation. Sex
--- OUTSIDE RECORDS SUMMARY | 2023-03-27 19:01 | XMS_ITS | Continuity of Care Document ---
Author Name Unknown Organization [facility] Address [address] [place] [address]- Care Team Providers Care Barge Captain Name Role Phone Donny Chery NP Primary Care Physician [phone] Encounter [facility] Date(s): 12/01/19 - 12/31/[address] [address]- [facility] Attending Physician: Admtr, Zeyad Allergies, Adverse Reactions, [...] 11/13/19 18:24:00 EDT, Route to Pharmacy Electronically, [facility]/pharmacy #1026, 161, cm, 11/13/19 16:06:00 EDT, Height Start Date: 11/13/19 Status: Ordered miSOPROStol 200 mcg oral tablet 4 tablet = 800 mcg, Vaginally, Once, # 4 tablet, 0 Refills, Soft Stop, 11/13/19 18:22:00 EDT, [facility]/pharmacy #1026, 161, cm, 11/13/19 16:06:00 EDT, Height [...] 3 Refills, Maintenance, 11/03/19 11:54:00 EDT, Tablet, [facility] [place], [place] -, 1 tablet By Mouth Daily, [...] Active 1Followed by dermatology (Dr. Coulter [facility]). Receives weekly injections/ derm is aware of Social History Social History Type Response Tobacco Use: 4 or less cigar ettes(less than 1/4 pack)/day in last 30 days. Other: Patient states she is trying to stop smoking now that she is / smokes 3-4 cigarettes daily. Sex
--- OUTSIDE RECORDS SUMMARY | 2023-03-27 19:01 | XMS_ITS | Continuity of Care Document ---
Author Name Unknown Organization [facility] Address [address] [place] [address]- Care Team Providers Care Prekindergarten Teacher Name Role Phone Alphonse CRUZ, Júnior Amezquita Primary Care Physician Encounter [facility] [place] Date(s): 03/19/21 - 04/18/[address] [address]- Allergies, Adverse Reactions, Alerts Substance Reaction Severity [...] Pharmacy Electronically, [facility] STORE [id number], 160, cm, 08/02/20 13:35:00 EST, Height, 53.2, [...] 03/16/2020 2Patient reports she was hospitalized at [facility] in February 2020 due to an [...] of twin 6Currently in couseling through [facility] weekly on the phone. States currently feels safe and stable.Stopped taking medication due to . 7Currently sees Dr. Coulter for dermatology. No longer receives injections--states that she is on creams/ointments. States Dr. Coulter is aware of . Next appointment in August. 8Followed by dermatology (Dr. Coulter [facility]). Receives weekly injections/ derm is aware of Social History Social History Type Response Tobacco Use: 4 or less cigar ettes(less than 1/4 pack)/day in last 30 days. Other: Smokes 3-4 cigarettes daily. Declines NRT or smoking cessation. Sex
--- OUTSIDE RECORDS SUMMARY | 2023-03-27 19:01 | XMS_ITS | Continuity of Care Document ---
Author Name Unknown Organization [facility] Address [address] [place] [address]- Care Team Providers Care Cloth Hand Name Role Phone Alphonse CRUZ, Júnior Amezquita Primary Care Physician [phone] Encounter [facility] Date(s): 01/03/21 - 02/08/[address] [address]- Attending Physician: Not on Staff, Attending MD Allergies, Adverse Reactions, Alerts Substance Reaction Severity Status NKA Active Immunizations Given and Recorded Vaccine Date Status Refusal Reason Influenza Virus Vaccine (oldterm) 1 06/11/20 Recor ded influ virus vac, H1N1, inactive(oldterm) 06/06/09 Given 1Result Comment: Patient states she received flu vaccine this month at [facility] Medications acetaminophen 500 mg oral tablet 2 tablet = 1,000 mg, By Mouth, Every 6 hours, PRN as needed for pain, # 50 tablet, 0 Refills, Maintenance, 11/13/19 18:24:00 EDT, Tablet, [facility]/pharmacy #1026, 161, cm, 11/13/19 16:06:00 [...] Replace Required Details, Route to Pharmacy Electronically, [facility] STORE [id number], 160, cm, 08/02/20 13:35:00 EST, Height, 53.2, kg,... Start Date: 09/04/20 Status: Ordered Multivitamins with Folic Acid 1 mg oral tablet 1 tablet, By Mouth, Daily, # 90 tablet, 2 Refills, Maintenance, 01/31/21 11:48:00 EDT, Tablet, [facility]/pharmacy #1026, Partial fill upon patient request if the prescription is for a schedule II opioid drug., 1 tablet By Mouth Daily, 160, cm, 01/19/21 15:0... Start Date: 01/31/21 Status: Ordered Multivitamins with Folic Acid 1 mg oral tablet 1 tablet, By Mouth, Daily, # 90 tablet, 3 Refills, Maintenance, 06/21/20 14:53:00 EST, Tablet, [facility]/pharmacy #1026, 1 tablet By Mouth [...] 2Patient reports she was hospitalized at [facility] in February 2020 due to an [...] of twin 6Currently in couseling through [facility] weekly on the phone. States [...]
--- OUTSIDE RECORDS SUMMARY | 2023-03-27 19:01 | XMS_ITS | Continuity of Care Document ---
Author Name Unknown Organization [facility] Address [address] [place] [address]- Care Team Providers Care Railroad Car Painter Name Role Phone Alphonse CRUZ, Júnior Amezquita Primary Care Physician [place] [facility] [place](s): 09/04/20 - 10/04/[address] [address]- Allergies, Adverse Reactions, Alerts Substance Reaction Severity Status NKA Active Immunizations Given and Recorded Vaccine Date Status Refusal Reason Influenza Virus Vaccine (oldterm) 1 06/11/20 Recor ded influ virus vac, H1N1, inactive(oldterm) 06/06/09 Given 1Result Comment: Patient states she received flu vaccine this month at [facility] Medications acetaminophen 500 mg oral tablet 2 tablet = 1,000 mg, By Mouth, Every 6 hours, PRN as needed for pain, # 50 tablet, 0 Refills, Maintenance, 11/13/19 18:24:00 EDT, Tablet, [facility]/pharmacy #1026, 161, cm, 11/13/19 16:06:00 EDT, Height [...] Replace Required Details, Route to Pharmacy Electronically, [facility] STORE [id number], 160, cm, 08/02/20 13:35:00 EST, Height, 53.2, [...] 03/16/2020 2Patient reports she was hospitalized at [facility] in February 2020 due to an [...] delivery of twin 6Currently in couseling through [facility] weekly on the phone. States currently feels safe and stable.Stopped taking medication due to . 7Currently sees Dr. Coulter for dermatology. No longer receives injections--states that she is on creams/ointments. States Dr. Coulter is aware of . Next appointment in August. 8Followed by dermatology (Dr. Coulter [address] [facility]). Receives weekly injections/ derm is aware of Social History Social History Type Response Tobacco Use: 4 or less cigar ettes(less than 1/4 pack)/day in last 30 days. Other: Smokes 3-4 cigarettes daily. Declines NRT or smoking cessation. Sex
--- OUTSIDE RECORDS SUMMARY | 2023-03-27 19:01 | XMS_ITS | Continuity of Care Document ---
Author Name Unknown Organization [facility] Address [address] [place] [address]- Care Team Providers Care Sleeve Separator Name Role Phone Júnior Cunha MD Primary Care Physician [place] [facility] [place]/03/[place] - 08/31/[address] [address]- Attending Physician: Not on Staff, Attending MD Referring Physician: Júnior Cunha MD Allergies, Adverse Reactions, Alerts Substance Reaction [...] 07/21/20 8:16:00 EST, Route to Pharmacy Electronically, [facility]/pharmacy #1026, Partial fill [...] 03/16/2020 2Patient reports she was hospitalized at [facility] in February 2020 due to an [...] in August. 8Followed by dermatology (Dr. Coulter [address] [place] [address]). Receives weekly injections/ derm is aware of Social History Social History Type Response Tobacco Use: 4 or less cigar ettes(less than 1/4 pack)/day in last 30 days. Other: Smokes 3-4 cigarettes daily. Declines NRT or smoking cessation. Sex
--- OUTSIDE RECORDS SUMMARY | 2023-03-27 19:01 | XMS_ITS | Continuity of Care Document ---
Author Name Unknown Organization [facility] Address [address] [place] [address]- Care Team Providers Care Kitchen Manager Name Role Phone Alphonse CRUZ, Júnior Amezquita Primary Care Physician [phone] [place] [facility] [place] Date(s): 01/01/22 - 01/31/[address] [address] Allergies, Adverse Reactions, Alerts No Known Allergies Immunizations Given and Recorded Vaccine Date Status Refusal Reason Influenza Virus Vaccine (oldterm) 1 06/11/20 Recor ded influ virus vac, H1N1, inactive(oldterm) 06/06/09 Given 1Result Comment: Patient states she received flu vaccine this month at [facility] Medications acetaminophen 500 mg oral tablet 2 tablet = 1,000 mg, By Mouth, Every 6 hours, PRN as needed for pain, # 50 tablet, 0 Refills, Maintenance, 11/13/19 18:24:00 EDT, Tablet, [facility]/pharmacy #1026, 161, cm, 11/13/19 16:06:00 EDT, [...] Replace Required Details, Route to Pharmacy Electronically, [facility] STORE [id number], 160, cm, 08/02/20 13:35:00 EST, Height, 53.2, kg,... Start Date: 09/04/20 Status: Ordered Multivitamins with Folic Acid 0.8 mg oral tablet 1 tablet, By Mouth, Daily, # 90 tablet, 2 Refills, Maintenance, 02/22/21 14:41:00 EDT, Tablet, [facility]/pharmacy #1026, Partial fill upon patient request if the prescription is for a schedule II opioid drug., 1 tablet By Mouth Daily, 160, cm, 01/19/21 15:0... Start Date: 02/22/21 Status: Ordered Multivitamins with Folic Acid 1 mg oral tablet 1 tablet, By Mouth, Daily, # 90 tablet, 2 Refills, Maintenance, 01/31/21 11:48:00 EDT, Tablet, [facility]/pharmacy #1026, Partial fill upon patient request if the prescription is for a schedule II opioid drug., 1 tablet By Mouth Daily, 160, cm, 01/19/21 15:0... Start Date: 01/31/21 Status: Ordered Multivitamins with Folic Acid 1 mg oral tablet 1 tablet, By Mouth, Daily, # 90 tablet, 3 Refills, Maintenance, 06/21/20 14:53:00 EST, Tablet, [facility]/pharmacy #1026, 1 tablet By Mouth Daily, [...] 03/16/2020 2Patient reports she was hospitalized at [facility] in February 2020 due to [...] delivery of twin 6Currently in couseling through [facility] weekly on the phone. States currently feels safe and stable.Stopped taking medication due to . 7Currently sees Dr. Coulter for dermatology. No longer receives injections--states that she is on creams/ointments. States Dr. Coulter is aware of . Next appointment in August. 8Followed by dermatology (Dr. Coulter [address] Receives weekly injections/ derm is aware of Social History Social History Type Response Tobacco Use: 4 or less cigar ettes(less than 1/4 pack)/day in last 30 days. Other: Smokes 3-4 cigarettes daily. Declines NRT or smoking cessation. Sex
--- OUTSIDE RECORDS SUMMARY | 2023-03-27 19:01 | XMS_ITS | Continuity of Care Document ---
Author Name Unknown Organization [facility] Address [address] [place] [address]- Care Team Providers Care Viscosity Inspector Name Role Phone Alphonse CRUZ, Júnior Amezquita Primary Care Physician Encounter [facility] Date(s): 11/30/20 - 01/04/[address] [address]- Attending Physician: Taylor Goyal CNM Admitting Physician: Taylor Goyal CNM Allergies, Adverse Reactions, Alerts Substance Reaction Severity Status NKA Active Immunizations Given and Recorded Vaccine Date Status Refusal Reason Influenza Virus Vaccine (oldterm) 1 06/11/20 Recor ded influ virus vac, H1N1, inactive(oldterm) 06/06/09 Given 1Result Comment: Patient states she received flu vaccine this month at [facility] Medications acetaminophen 500 mg oral tablet 2 tablet = 1,000 mg, By Mouth, Every 6 hours, PRN as needed for pain, # 50 tablet, 0 Refills, Maintenance, 11/13/19 18:24:00 EDT, Tablet, [facility]/pharmacy #1026, 161, cm, 11/13/19 16:06:00 [...] Replace Required Details, Route to Pharmacy Electronically, [id number], 160, cm, 08/02/20 13:35:00 EST, Height, 53.2, [...] 03/16/2020 2Patient reports she was hospitalized at [facility] in February 2020 due to an [...] delivery of twin 6Currently in couseling through [facility] weekly on the phone. States currently feels safe and stable.Stopped taking medication due to . 7Currently sees Dr. Coulter for dermatology. No longer receives injections--states that she is on creams/ointments. States Dr. Coulter is aware of . Next appointment in August. 8Followed by dermatology (Dr. Coulter [address]). Receives weekly injections/ derm is aware of Social History Social History Type Response Tobacco Use: 4 or less cigar ettes(less than 1/4 pack)/day in last 30 days. Other: Smokes 3-4 cigarettes daily. Declines NRT or smoking cessation. Sex
--- OUTSIDE RECORDS SUMMARY | 2023-03-27 19:01 | XMS_ITS | Continuity of Care Document ---
Author Name Unknown Organization [facility] Address [address] [place] [address]- Care Team Providers Care Sales Agent Trading Stamps Name Role Phone Alphonse CRUZ, Júnior Amezquita Primary Care Physician [phone] [place] [facility] Date[place]s): 07/14/20 - 08/13/[address] [address] Allergies, Adverse Reactions, Alerts Substance Reaction Severity Status NKA Active Immunizations Given and Recorded Vaccine Date Status Refusal Reason Influenza Virus Vaccine (oldterm) 1 06/11/20 Recor ded influ virus vac, H1N1, inactive(oldterm) 06/06/09 Given 1Result Comment: Patient states she received flu vaccine this month at [facility] Medications acetaminophen 500 mg oral tablet 2 tablet = 1,000 mg, By Mouth, Every 6 hours, PRN as needed for pain, # 50 tablet, 0 Refills, Maintenance, 11/13/19 18:24:00 EDT, Tablet, [facility]/pharmacy #1026, 161, cm, 11/13/19 [...] 07/21/20 8:16:00 EST, Route to Pharmacy Electronically, [facility]/pharmacy #1026, Partial fill upon patient request if the prescription is for... Start Date: 07/21/20 Status: Ordered Multivitamins with Folic Acid 1 mg oral tablet 1 tablet, By Mouth, Daily, # 90 tablet, 3 Refills, Maintenance, 06/21/20 14:53:00 EST, Tablet, [facility]/pharmacy #1026, 1 tablet By [...] 03/16/2020 2Patient reports she was hospitalized at [facility] in February 2020 due to an [...] August. 8Followed by dermatology (Dr. Coulter [address] [facility]). Receives weekly injections/ derm is aware of Social History Social History Type Response Tobacco Use: 4 or less cigar ettes(less than 1/4 pack)/day in last 30 days. Other: Smokes 3-4 cigarettes daily. Declines NRT or smoking cessation. Sex
--- OUTSIDE RECORDS SUMMARY | 2023-03-27 19:01 | XMS_ITS | Continuity of Care Document ---
Author Name Unknown Organization [facility] Address [address] [place] [address]- Care Team Providers Care Tapper Bit Name Role Phone Donny Chery NP Primary Care Physician [place] [facility] [place]/10/20 - 04/23/20 [facility] [address] [place] [address]- [facility] Attending Physician: Delfino Martinez MD Admitting Physician: Delfino Martinez MD Referring Physician: Donny Chery NP Allergies, [...] 11/13/19 18:24:00 EDT, Route to Pharmacy Electronically, [facility]/pharmacy #[id number], 161, cm, 11/13/19 16:06:00 EDT, Height Start Date: 11/13/19 Status: Ordered Lovenox 40 mg/0.4 mL injectable solution See Instructions, Subcutaneous Infusion Daily, 0 Refills, Maintenance, 03/16/20 13:48:00 EDT Start Date: 03/16/20 Status: Ordered miSOPROStol 200 mcg oral tablet 4 tablet = 800 mcg, Vaginally, Once, # 4 tablet, 0 Refills, Soft Stop, 11/13/19 18:22:00 EDT, [facility]/pharmacy #1026, 161, cm, 11/13/19 16:06:00 EDT, [...] 3 Refills, Maintenance, 11/03/19 11:54:00 EDT, Tablet, [facility] [place], [place] -, 1 tablet By Mouth Daily, [...] 1 Active 1Followed by dermatology (Dr. Coulter [address] [place] [address]). Receives weekly injections/ derm is aware of Social History Social History Type Response Tobacco Use: 4 or less cigar ettes(less than 1/4 pack)/day in last 30 days. Other: Patient states she is trying to stop smoking now that she is / smokes 3-4 cigarettes daily. Sex
--- OUTSIDE RECORDS SUMMARY | 2023-03-27 19:01 | XMS_ITS | Continuity of Care Document ---
Author Name Unknown Organization [facility] Address [address] [place] [address]- Care Team Providers Care Manager Advanced Name Role Phone Alphonse CRUZ, Júnior Amezquita Primary Care Physician Encounter [facility] Date(s): 04/18/21 - 05/24/[address] [address]- Attending Physician: Jose CRUZ, Donny Dumont Admitting Physician: Jose CRUZ, Donny Dumont Referring Physician: Ines Feng MD Allergies, Adverse Reactions, Alerts Substance Reaction Severity Status NKA Active Immunizations Given and Recorded Vaccine Date Status Refusal Reason Influenza Virus Vaccine (oldterm) 1 06/11/20 Recor ded influ virus vac, H1N1, inactive(oldterm) 06/06/09 Given 1Result Comment: Patient states she received flu vaccine this month at [facility] Medications acetaminophen 500 mg oral tablet 2 tablet = 1,000 mg, By Mouth, Every 6 hours, PRN as needed for pain, # 50 tablet, 0 Refills, Maintenance, 11/13/19 18:24:00 EDT, Tablet, [facility]/pharmacy #1026, 161, cm, [...] Replace Required Details, Route to Pharmacy Electronically, [facility] [id number], 160, cm, 08/02/20 13:35:00 EST, Height, 53.2, kg,... Start Date: 09/04/20 Status: Ordered Multivitamins with Folic Acid 0.8 mg oral tablet 1 tablet, By Mouth, Daily, # 90 tablet, 2 Refills, Maintenance, 02/22/21 14:41:00 EDT, Tablet, [facility]/pharmacy #1026, Partial fill upon patient request if the prescription is for a schedule II opioid drug., 1 tablet By Mouth Daily, 160, cm, 01/19/21 15:0... Start Date: 02/22/21 Status: Ordered Multivitamins with Folic Acid 1 mg oral tablet 1 tablet, By Mouth, Daily, # 90 tablet, 2 Refills, Maintenance, 01/31/21 11:48:00 EDT, Tablet, [facility]/pharmacy #1026, Partial fill upon patient request if the prescription is for a schedule II opioid drug., 1 tablet By Mouth Daily, 160, cm, 01/19/21 15:0... Start Date: 01/31/21 Status: Ordered Multivitamins with Folic Acid 1 mg oral tablet 1 tablet, By Mouth, Daily, # 90 tablet, 3 Refills, Maintenance, 06/21/20 14:53:00 EST, Tablet, [facility]/pharmacy #1026, 1 tablet By Mouth [...] 03/16/2020 2Patient reports she was hospitalized at [facility] in February 2020 due to [...] delivery of twin 6Currently in couseling through [facility] weekly on the phone. States currently feels safe and stable.Stopped taking medication due to . 7Currently sees Dr. Coulter for dermatology. No longer receives injections--states that she is on creams/ointments. States Dr. Coulter is aware of . Next appointment in August. 8Followed by dermatology (Dr. Coulter [address] [facility]). Receives weekly injections/ derm is aware of Social History Social History Type Response Tobacco Use: 4 or less cigar ettes(less than 1/4 pack)/day in last 30 days. Other: Smokes 3-4 cigarettes daily. Declines NRT or smoking cessation. Sex
--- OUTSIDE RECORDS SUMMARY | 2023-03-27 19:01 | XMS_ITS | Continuity of Care Document ---
Author Name Unknown Organization [facility] Address [address] [place] [address]- Care Team Providers Care Fertilizer Processing Supervisor Name Role Phone Not on Staff, PCP Primary Care Physician Unavail able Encounter [facility] Date(s): 10/28/22 - 11/27/[address] [address]- Attending Physician: Zeyad Smart Allergies, Adverse Reactions, Alerts No Known Allergies Immunizations Given and Recorded Vaccine Date Status Refusal Reason Influenza Virus Vaccine (oldterm) 1 06/11/20 Recor ded influ virus vac, H1N1, inactive(oldterm) 06/06/09 Given 1Result Comment: Patient states she received flu vaccine this month at [facility] Medications acetaminophen 500 mg oral tablet 2 tablet = 1,000 mg, By Mouth, Every 6 hours, PRN as needed for pain, # 50 tablet, 0 Refills, Maintenance, 11/13/19 18:24:00 EDT, Tablet, [facility]/pharmacy #1026, 161, cm, 11/13/19 16:06:00 EDT, Height [...] Replace Required Details, Route to Pharmacy Electronically, [facility] 68357, 160, cm, 08/02/20 13:35:00 EST, Height, 53.2, [...] 03/16/2020 2Patient reports she was hospitalized at [facility] in February 2020 due to an [...] delivery of twin 6Currently in couseling through [facility] weekly on the phone. States currently feels safe and stable.Stopped taking medication due to . 7Currently sees Dr. Coulter for dermatology. No longer receives injections--states that she is on creams/ointments. States Dr. Coulter is aware of . Next appointment in August. 8Followed by dermatology (Dr. Coulter [address] [place] [address]). Receives weekly injections/ derm is aware of Social History Social History Type Response Tobacco Use: 4 or less cigar ettes(less than 1/4 pack)/day in last 30 days. Other: Smokes 3-4 cigarettes daily. Declines NRT or smoking cessation. Sex Note * Devorah Freeman: PERFORM Event Display: Radiology Results Scanned Authored Date: [id number] * Devorah Freeman: PERFORM Event Display: Radiology Results Scanned Authored Date: [id number] * Devorah Freeman: PERFORM Event Display: Patient Education/Instruction Authored Date: [id number] Patient Care team information Care Team Personnel Name: Not on Staff, PCP Position: S Physician (General Medicine) Member Role: PCP Care Team Related Persons Name: JOSE CHRISTIANSEN Address: home [address] [place] [address]
--- OUTSIDE RECORDS SUMMARY | 2023-03-27 19:01 | XMS_ITS | Continuity of Care Document ---
Author Name Unknown Organization [facility] Address [address] [place] [address]- Care Team Providers Care Contract Writer Name Role Phone oDnny Chery NP Primary Care Physician [phone] Encounter [facility] Date(s): 11/29/19 - 12/31/[address] [address]- [facility] Attending Physician: Not on Staff, Attending MD [...] 11/13/19 18:24:00 EDT, Route to Pharmacy Electronically, [facility]/pharmacy #1026, 161, cm, 11/13/19 16:06:00 EDT, Height Start Date: 11/13/19 Status: Ordered miSOPROStol 200 mcg oral tablet 4 tablet = 800 mcg, Vaginally, Once, # 4 tablet, 0 Refills, Soft Stop, 11/13/19 18:22:00 EDT, [facility]/pharmacy #1026, 161, cm, 11/13/19 16:06:00 EDT, [...] 3 Refills, Maintenance, 11/03/19 11:54:00 EDT, Tablet, [facility] [place] [place] -, 1 tablet By Mouth Daily, [...] 1 Active 1Followed by dermatology (Dr. Coulter [address] [place] [address]). Receives weekly injections/ derm is aware of Social History Social History Type Response Tobacco Use: 4 or less cigar ettes(less than 1/4 pack)/day in last 30 days. Other: Patient states she is trying to stop smoking now that she is / smokes 3-4 cigarettes daily. Sex
--- OUTSIDE RECORDS SUMMARY | 2023-03-27 19:01 | XMS_ITS | Continuity of Care Document ---
Author Name Unknown Organization [facility] Address [address] [place] [address]- Care Team Providers Care Animal Assistant Name Role Phone Alphonse CRUZ, Júnior Amezquita Primary Care Physician [phone] Encounter [facility] [place] Date(s): 01/10/22 - 02/15/[address] [address]- Attending Physician: Tanesha Sigala CNM Admitting Physician: Tanesha Sigala CNM Referring Physician: Tanesha Sigala CNM Allergies, Adverse Reactions, Alerts No Known Allergies Immunizations Given and Recorded Vaccine Date Status Refusal Reason Influenza Virus Vaccine (oldterm) 1 06/11/20 Recor ded influ virus vac, H1N1, inactive(oldterm) 06/06/09 Given 1Result Comment: Patient states she received flu vaccine this month at [facility] Medications acetaminophen 500 mg oral tablet 2 tablet = 1,000 mg, By Mouth, Every 6 hours, PRN as needed for pain, # 50 tablet, 0 Refills, Maintenance, 11/13/19 18:24:00 EDT, Tablet, [facility]/pharmacy #1026, 161, cm, 11/13/19 16:06:00 EDT, Height Start Date: 11/13/19 Status: Ordered Cosentyx = 300 mg, Subcutaneous Infusion, 0 Refills, Maintenance, 11/13/19 17:13:00 EDT Start Date: 11/13/19 Status: Ordered ferrous fumarate 100 mg/5 ml oral suspension 15 mL = 300 mg, By Mouth, Daily, # 1 bottle, 0 Refills, Maintenance Start Date: 4/7/10 Status: Ordered ibuprofen 800 mg oral tablet See Instructions, TAKE 1 TABLET BY MOUTH EVERY 8 HOURS NEEDED FOR MILD PAIN, # 30 tablet, Refills 0, Acute, Instructions Replace Required Details, Route to Pharmacy Electronically, [facility] 52452, 160, cm, 08/02/20 13:35:00 EST, Height, 53.2, kg,... Start Date: 09/04/20 Status: Ordered Multivitamins with Folic Acid 0.8 mg oral tablet 1 tablet, By Mouth, Daily, # 90 tablet, 2 Refills, Maintenance, 02/22/21 14:41:00 EDT, Tablet, [facility]/pharmacy #1026, Partial fill upon patient request if the prescription is for a schedule II opioid drug., 1 tablet By Mouth Daily, 160, cm, 01/19/21 15:0... Start Date: 02/22/21 Status: Ordered Multivitamins with Folic Acid 1 mg oral tablet 1 tablet, By Mouth, Daily, # 90 tablet, 2 Refills, Maintenance, 01/31/21 11:48:00 EDT, Tablet, [facility]/pharmacy #1026, Partial fill upon patient request if the prescription is for a schedule II opioid drug., 1 tablet By Mouth Daily, 160, cm, 01/19/21 15:0... Start Date: 01/31/21 Status: Ordered Multivitamins with Folic Acid 1 mg oral tablet 1 tablet, By Mouth, Daily, # 90 tablet, 3 Refills, Maintenance, 06/21/20 14:53:00 EST, Tablet, [facility]/pharmacy #1026, 1 tablet By Mouth Daily, 161, [...] 03/16/2020 2Patient reports she was hospitalized at [facility] in February 2020 due to an [...] delivery of twin 6Currently in couseling through [facility] weekly on the phone. States currently feels safe and stable.Stopped taking medication due to . 7Currently sees Dr. Coulter for dermatology. No longer receives injections--states that she is on creams/ointments. States Dr. Coulter is aware of . Next appointment in August. 8Followed by dermatology (Dr. Coulter [address] [place] [address]). Receives weekly injections/ derm is aware of Social History Social History Type Response Tobacco Use: 4 or less cigar ettes(less than 1/4 pack)/day in last 30 days. Other: Smokes 3-4 cigarettes daily. Declines NRT or smoking cessation. Sex
--- OUTSIDE RECORDS SUMMARY | 2023-03-27 19:01 | XMS_ITS | Continuity of Care Document ---
Author Name Unknown Organization [facility] Address [address] [place] [address]- Care Team Providers Care Account Manager Forest Service Name Role Phone Not on Staff, PCP Primary Care Physician Unavail able Encounter [facility] Date(s): 10/22/22 - 11/21/[address] [address]- Allergies, Adverse Reactions, Alerts No Known Allergies Immunizations Given and Recorded Vaccine Date Status Refusal Reason Influenza Virus Vaccine (oldterm) 1 06/11/20 Recor ded influ virus vac, H1N1, inactive(oldterm) 06/06/09 Given 1Result Comment: Patient states she received flu vaccine this month at [facility] Medications acetaminophen 500 mg oral tablet 2 tablet = 1,000 mg, By Mouth, Every 6 hours, PRN as needed for pain, # 50 tablet, 0 Refills, Maintenance, 11/13/19 18:24:00 EDT, Tablet, [facility]/pharmacy #1026, 161, cm, 11/13/19 [...] Replace Required Details, Route to Pharmacy Electronically, [facility] 62018, 160, cm, 08/02/20 13:35:00 EST, Height, 53.2, [...] 03/16/2020 2Patient reports she was hospitalized at [facility] in February 2020 due to [...] by dermatology (Dr. Coulter [address] [facility]). Receives weekly injections/ derm is aware of Social History Social History Type Response Tobacco Use: 4 or less cigar ettes(less than 1/4 pack)/day in last 30 days. Other: Smokes 3-4 cigarettes daily. Declines NRT or smoking cessation. Sex Patient Care team information Care Team Personnel Name: Not on Staff, PCP Position: [facility] Physician (General Medicine) Member Role: PCP Care Team Related Persons Name: JOSE CHRISTIANSEN Address: home [address] [place] [place] [address]
--- OUTSIDE RECORDS SUMMARY | 2023-03-27 19:01 | XMS_ITS | Continuity of Care Document ---
Author Name Unknown Organization [facility] Address [address] [place] [address]- Care Team Providers Care Mechanical Systems Control Engineer Name Role Phone Alphonse CRUZ, Júnior Amezquita Primary Care Physician Encounter [facility] [place] Date(s): 09/04/21 - 10/17/[address] [address]- Attending Physician: Not on Staff, Attending MD Allergies, Adverse Reactions, Alerts No Known Allergies Immunizations Given and Recorded Vaccine Date Status Refusal Reason Influenza Virus Vaccine (oldterm) 1 06/11/20 Recor ded influ virus vac, H1N1, inactive(oldterm) 06/06/09 Given 1Result Comment: Patient states she received flu vaccine this month at [facility] Medications acetaminophen 500 mg oral tablet 2 tablet = 1,000 mg, By Mouth, Every 6 hours, PRN as needed for pain, # 50 tablet, 0 Refills, Maintenance, 11/13/19 18:24:00 EDT, Tablet, [facility]/pharmacy #1026, 161, cm, 11/13/19 16:06:00 EDT, [...] Replace Required Details, Route to Pharmacy Electronically, [facility] 05277, 160, cm, 08/02/20 13:35:00 EST, Height, 53.2, kg,... Start Date: 09/04/20 Status: Ordered Multivitamins with Folic Acid 0.8 mg oral tablet 1 tablet, By Mouth, Daily, # 90 tablet, 2 Refills, Maintenance, 02/22/21 14:41:00 EDT, Tablet, [facility]/pharmacy #1026, Partial fill upon patient request if the prescription is for a schedule II opioid drug., 1 tablet By Mouth Daily, 160, cm, 01/19/21 15:0... Start Date: 02/22/21 Status: Ordered Multivitamins with Folic Acid 1 mg oral tablet 1 tablet, By Mouth, Daily, # 90 tablet, 2 Refills, Maintenance, 01/31/21 11:48:00 EDT, Tablet, [facility]/pharmacy #1026, Partial fill upon patient request if the prescription is for a schedule II opioid drug., 1 tablet By Mouth Daily, 160, cm, 01/19/21 15:0... Start Date: 01/31/21 Status: Ordered Multivitamins with Folic Acid 1 mg oral tablet 1 tablet, By Mouth, Daily, # 90 tablet, 3 Refills, Maintenance, 06/21/20 14:53:00 EST, Tablet, [facility]/pharmacy #1026, 1 tablet By Mouth Daily, [...] 03/16/2020 2Patient reports she was hospitalized at [facility] in February 2020 due to an [...] in couseling through [facility] weekly on the phone. States currently feels safe and stable.Stopped taking medication due to . 7Currently sees Dr. Coulter for dermatology. No longer receives injections--states that she is on creams/ointments. States Dr. Coulter is aware of . Next appointment in August. 8Followed by dermatology (Dr. Coulter [facility]). Receives weekly injections/ derm is aware of Social History Social History Type Response Tobacco Use: 4 or less cigar ettes(less than 1/4 pack)/day in last 30 days. Other: Smokes 3-4 cigarettes daily. Declines NRT or smoking cessation. Sex
--- OUTSIDE RECORDS SUMMARY | 2023-03-27 19:01 | XMS_ITS | Continuity of Care Document ---
Author Name Unknown Organization [facility] Address [address] [place] [address]- Care Team Providers Care Behavioral Services Tech Name Role Phone Júnior Cunha MD Primary Care Physician [id number] Date(s): 09/26/20 - 11/09/[address] [address]- Attending Physician: Not on Staff, Attending MD Allergies, Adverse Reactions, Alerts Substance Reaction Severity Status NKA Active Immunizations Given and Recorded Vaccine Date Status Refusal Reason Influenza Virus Vaccine (oldterm) 1 06/11/20 Recor ded influ virus vac, H1N1, inactive(oldterm) 06/06/09 Given 1Result Comment: Patient states she received flu vaccine this month at [facility] Medications acetaminophen 500 mg oral tablet 2 tablet = 1,000 mg, By Mouth, Every 6 hours, PRN as needed for pain, # 50 tablet, 0 Refills, Maintenance, 11/13/19 18:24:00 EDT, Tablet, [facility]/pharmacy #1026, 161, cm, 11/13/19 16:06:00 EDT, Height [...] Required Details, Route to Pharmacy Electronically, [facility] 10840, 160, cm, 08/02/20 13:35:00 EST, Height, 53.2, [...] 03/16/2020 2Patient reports she was hospitalized at [facility] in February 2020 due [...] delivery of twin 6Currently in couseling through weekly on the phone. States currently feels safe and stable.Stopped taking medication due to . 7Currently sees Dr. Coulter for dermatology. No longer receives injections--states that she is on creams/ointments. States Dr. Coulter is aware of . Next appointment in August. 8Followed by dermatology (Dr. Coulter [facility]). Receives weekly injections/ derm is aware of Social History Social History Type Response Tobacco Use: 4 or less cigar ettes(less than 1/4 pack)/day in last 30 days. Other: Smokes 3-4 cigarettes daily. Declines NRT or smoking cessation. Sex
--- OUTSIDE RECORDS SUMMARY | 2023-03-27 19:01 | XMS_ITS | Continuity of Care Document ---
Author Name Unknown Organization [facility] Address [address] [place] [address]- Care Team Providers Care Chief Revenue Officer Name Role Phone Alphonse CRUZ, Júnior Amezquita Primary Care Physician [id number] Date(s): 12/12/20 - 01/18/[address] [address]- Attending Physician: Taylor Goyal CNM Admitting Physician: Taylor Goyal CNM Allergies, Adverse Reactions, Alerts Substance Reaction Severity Status NKA Active Immunizations Given and Recorded Vaccine Date Status Refusal Reason Influenza Virus Vaccine (oldterm) 1 06/11/20 Recor ded influ virus vac, H1N1, inactive(oldterm) 06/06/09 Given 1Result Comment: Patient states she received flu vaccine this month at [facility] Medications acetaminophen 500 mg oral tablet 2 tablet = 1,000 mg, By Mouth, Every 6 hours, PRN as needed for pain, # 50 tablet, 0 Refills, Maintenance, 11/13/19 18:24:00 EDT, Tablet, [facility]/pharmacy #[id number], 161, cm, 11/13/19 16:06:00 EDT, Height [...] Replace Required Details, Route to Pharmacy Electronically, [id number], 160, cm, 08/02/20 13:35:00 EST, Height, 53.2, [...] 03/16/2020 2Patient reports she was hospitalized at [facility] in February 2020 due to an [...] 6Currently in couseling through [facility] weekly on the phone. States currently feels safe and stable.Stopped taking medication due to . 7Currently sees Dr. Coulter for dermatology. No longer receives injections--states that she is on creams/ointments. States Dr. Coulter is aware of . Next appointment in August. 8Followed by dermatology (Dr. Coulter [address] Receives weekly injections/ derm is aware of Social History Social History Type Response Tobacco Use: 4 or less cigar ettes(less than 1/4 pack)/day in last 30 days. Other: Smokes 3-4 cigarettes daily. Declines NRT or smoking cessation. Sex
--- OUTSIDE RECORDS SUMMARY | 2023-03-27 19:01 | XMS_ITS | Continuity of Care Document ---
Author Name Unknown Organization [facility] Address [address] [place] [address]- Care Team Providers Care [facility] Attendant Name Role Phone Alphonse CRUZ, Júnior Amezquita Primary Care Physician Encounter [facility] Date(s): 07/31/20 - 08/30/[address] [address]- Allergies, Adverse Reactions, Alerts Substance Reaction Severity Status NKA Active Immunizations Given and Recorded Vaccine Date Status Refusal Reason Influenza Virus Vaccine (oldterm) 1 06/11/20 Recor ded influ virus vac, H1N1, inactive(oldterm) 06/06/09 Given 1Result Comment: Patient states she received flu vaccine this month at [facility] Medications acetaminophen 500 mg oral tablet 2 tablet = 1,000 mg, By Mouth, Every 6 hours, PRN as needed for pain, # 50 tablet, 0 Refills, Maintenance, 11/13/19 18:24:00 EDT, Tablet, [facility]/pharmacy #[id number], 161, cm, 11/13/19 16:06:00 EDT, [...] 07/21/20 8:16:00 EST, Route to Pharmacy Electronically, [facility]/pharmacy #[id number], Partial fill upon patient request [...] 03/16/2020 2Patient reports she was hospitalized at [facility] in February 2020 due to an [...] delivery of twin 6Currently in couseling through [facility] weekly on the phone. States currently feels safe and stable.Stopped taking medication due to . 7Currently sees Dr. Coulter for dermatology. No longer receives injections--states that she is on creams/ointments. States Dr. Coulter is aware of . Next appointment in August. 8Followed by dermatology (Dr. Coulter [address] [facility]). Receives weekly injections/ derm is aware of Social History Social History Type Response Tobacco Use: 4 or less cigar ettes(less than 1/4 pack)/day in last 30 days. Other: Smokes 3-4 cigarettes daily. Declines NRT or smoking cessation. Sex
--- OUTSIDE RECORDS SUMMARY | 2023-03-27 19:02 | XMS_ITS | Continuity of Care Document ---
Author Name Unknown Organization [facility] Address [address] [place] [address]- Care Team Providers Care Statement Clerk Name Role Phone Alphonse CRUZ, Júnior Amezquita Primary Care Physician Encounter [facility] Date(s): 04/09/21 - 05/09/[address] [address]- Allergies, Adverse Reactions, Alerts Substance Reaction Severity Status NKA Active Immunizations Given and Recorded Vaccine Date Status Refusal Reason Influenza Virus Vaccine (oldterm) 1 06/11/20 Recor ded influ virus vac, H1N1, inactive(oldterm) 06/06/09 Given 1Result Comment: Patient states she received flu vaccine this month at [facility] Medications acetaminophen 500 mg oral tablet 2 tablet = 1,000 mg, By Mouth, Every 6 hours, PRN as needed for pain, # 50 tablet, 0 Refills, Maintenance, 11/13/19 18:24:00 EDT, Tablet, [facility]/pharmacy #1026, 161, cm, 11/13/19 16:06:00 EDT, [...] Details, Route to Pharmacy Electronically, [facility] [id number], 160, cm, 08/02/20 13:35:00 EST, Height, 53.2, kg,... Start Date: 09/04/20 Status: Ordered Multivitamins with Folic Acid 0.8 mg oral tablet 1 tablet, By Mouth, Daily, # 90 tablet, 2 Refills, Maintenance, 02/22/21 14:41:00 EDT, Tablet, [facility]/pharmacy #1026, Partial fill upon patient request if the prescription is for a schedule II opioid drug., 1 tablet By Mouth Daily, 160, cm, 01/19/21 15:0... Start Date: 02/22/21 Status: Ordered Multivitamins with Folic Acid 1 mg oral tablet 1 tablet, By Mouth, Daily, # 90 tablet, 2 Refills, Maintenance, 01/31/21 11:48:00 EDT, Tablet, [facility]/pharmacy #1026, Partial fill upon patient request if the prescription is for a schedule II opioid drug., 1 tablet By Mouth Daily, 160, cm, 01/19/21 15:0... Start Date: 01/31/21 Status: Ordered Multivitamins with Folic Acid 1 mg oral tablet 1 tablet, By Mouth, Daily, # 90 tablet, 3 Refills, Maintenance, 06/21/20 14:53:00 EST, Tablet, [facility]/pharmacy #1026, 1 tablet By Mouth Daily, [...] 03/16/2020 2Patient reports she was hospitalized at [facility] in February 2020 due to [...] August. 8Followed by dermatology (Dr. Coulter [address] [facility]). Receives weekly injections/ derm is aware of Social History Social History Type Response Tobacco Use: 4 or less cigar ettes(less than 1/4 pack)/day in last 30 days. Other: Smokes 3-4 cigarettes daily. Declines NRT or smoking cessation. Sex
--- OUTSIDE RECORDS SUMMARY | 2023-03-27 19:02 | XMS_ITS | Continuity of Care Document ---
Author Name Unknown Organization [facility] Address [address] [place] [address]- Care Team Providers Care Head Start Director Name Role Phone Alphonse CRUZ, Júnior Amezquita Primary Care Physician Encounter [facility] Date(s): 03/31/21 - 05/06/[address] [address]- Attending Physician: Delisa Faith MD Admitting Physician: [...] to Pharmacy Electronically, [facility] [id number], 160, cm, 08/02/20 13:35:00 EST, Height, 53.2, kg,... Start Date: 09/04/20 Status: Ordered Multivitamins with Folic Acid 0.8 mg oral tablet 1 tablet, By Mouth, Daily, # 90 tablet, 2 Refills, Maintenance, 02/22/21 14:41:00 EDT, Tablet, [facility]/pharmacy #1026, Partial [...] 03/16/2020 2Patient reports she was hospitalized at [facility] in February 2020 due to an abscess [...]
--- OUTSIDE RECORDS SUMMARY | 2023-03-27 19:02 | XMS_ITS | Continuity of Care Document ---
Author Name Unknown Organization [facility] Address [address] [place] [address]- Care Team Providers Care Teacher Music Name Role Phone Donny Chery NP Primary Care Physician [phone] Encounter [facility] Date(s): 04/03/20 - 05/10/20 [facility] [address] [place] [address]- [facility] Attending Physician: Delfino Martinez MD Admitting [...] 18:24:00 EDT, Route to Pharmacy Electronically, [facility]/pharmacy #1026, 161, cm, 11/13/19 16:06:00 EDT, Height Start Date: 11/13/19 Status: Ordered Lovenox 40 mg/0.4 mL injectable solution See Instructions, Subcutaneous Infusion Daily, 0 Refills, Maintenance, 03/16/20 13:48:00 EDT Start Date: 03/16/20 Status: Ordered miSOPROStol 200 mcg oral tablet 4 tablet = 800 mcg, Vaginally, Once, # 4 tablet, 0 Refills, Soft Stop, 11/13/19 18:22:00 EDT, [facility]/pharmacy #1026, 161, cm, 11/13/19 16:06:00 [...] Refills, Maintenance, 11/03/19 11:54:00 EDT, Tablet, [facility] [place] -, 1 tablet By Mouth Daily, [...] 1 Active 1Followed by dermatology (Dr. Coulter [address] [place] [address]). Receives weekly injections/ derm is aware of Social History Social History Type Response Tobacco Use: 4 or less cigar ettes(less than 1/4 pack)/day in last 30 days. Other: Patient states she is trying to stop smoking now that she is / smokes 3-4 cigarettes daily. Sex
--- OUTSIDE RECORDS SUMMARY | 2023-03-27 19:02 | XMS_ITS | Continuity of Care Document ---
Author Name Unknown Organization [facility] Address [address] [place] [address]- Care Team Providers Care Executive Relations Specialist Name Role Phone Donny Chery NP Primary Care Physician [phone] Encounter [facility] Date(s): 11/24/19 - 12/04/19 [facility] [address] [place] [address]- [facility] Attending Physician: Zeyad Smart Admitting Physician: Admtr, Ar8 Referring Physician: Admtr, Ar8 Allergies, Adverse Reactions, Alerts [...] EDT, Route to Pharmacy Electronically, [facility]/pharmacy #1026, 161, cm, 11/13/19 16:06:00 EDT, Height Start Date: 11/13/19 Status: Ordered miSOPROStol 200 mcg oral tablet 4 tablet = 800 mcg, Vaginally, Once, # 4 tablet, 0 Refills, Soft Stop, 11/13/19 18:22:00 EDT, [facility]/pharmacy #1026, 161, cm, 11/13/19 16:06:00 EDT, [...] Refills, Maintenance, 11/03/19 11:54:00 EDT, Tablet, [facility] [place] [place] -, 1 tablet By Mouth Daily, [...] Active 1Followed by dermatology (Dr. Coulter [address] [facility]). Receives weekly injections/ derm is aware of Social History Social History Type Response Tobacco Use: 4 or less cigar ettes(less than 1/4 pack)/day in last 30 days. Other: Patient states she is trying to stop smoking now that she is / smokes 3-4 cigarettes daily. Sex
--- OUTSIDE RECORDS SUMMARY | 2023-03-27 19:02 | XMS_ITS | Continuity of Care Document ---
Author Name Unknown Organization [facility] Address [address] [place] [address]- Care Team Providers Care Broadcast Systems Engineer Name Role Phone Alphonse CRUZ, Júnior Amezquita Primary Care Physician [place] [facility] Date(s): 08/25/20 - 09/24/[address] [address]- Allergies, Adverse Reactions, Alerts Substance Reaction Severity Status NKA Active Immunizations Given and Recorded Vaccine Date Status Refusal Reason Influenza Virus Vaccine (oldterm) 1 06/11/20 Recor ded influ virus vac, H1N1, inactive(oldterm) 06/06/09 Given 1Result Comment: Patient states she received flu vaccine this month at [facility] Medications acetaminophen 500 mg oral tablet 2 tablet = 1,000 mg, By Mouth, Every 6 hours, PRN as needed for pain, # 50 tablet, 0 Refills, Maintenance, 11/13/19 18:24:00 EDT, Tablet, [facility]/pharmacy #1026, 161, cm, 11/13/19 16:06:00 [...] Required Details, Route to Pharmacy Electronically, [facility] [id number], 160, cm, 08/02/20 13:35:00 EST, Height, 53.2, [...] 03/16/2020 2Patient reports she was hospitalized at [facility] in February 2020 due to [...] in couseling through [facility] weekly on the phone. States currently feels safe and stable.Stopped taking medication due to . 7Currently sees Dr. Coulter for dermatology. No longer receives injections--states that she is on creams/ointments. States Dr. Coulter is aware of . Next appointment in August. 8Followed by dermatology (Dr. Coulter [facility]). Receives weekly injections/ derm is aware of Social History Social History Type Response Tobacco Use: 4 or less cigar ettes(less than 1/4 pack)/day in last 30 days. Other: Smokes 3-4 cigarettes daily. Declines NRT or smoking cessation. Sex
--- OUTSIDE RECORDS SUMMARY | 2023-03-27 19:02 | XMS_ITS | Continuity of Care Document ---
Author Name Unknown Organization [facility] Address [address] [place] [address]- Care Team Providers Care Audience Development Manager Name Role Phone Júnior Cunha MD Primary Care Physician Encounter [facility] Date(s): 01/29/21 - 01/29/[address] [address] Discharge Disposition: A-D/C Home Attending Physician: Chandrakant Redmond MD Admitting Physician: Chandrakant Redmond MD Referring Physician: Chandrakant Redmond MD Allergies, Adverse Reactions, Alerts Substance Reaction Severity Status NKA Active Immunizations Given and Recorded Vaccine Date Status Refusal Reason Influenza Virus Vaccine (oldterm) 1 06/11/20 Recor ded influ virus vac, H1N1, inactive(oldterm) 06/06/09 Given 1Result Comment: Patient states she received flu vaccine this month at [facility] Medications acetaminophen 500 mg oral tablet 2 tablet = 1,000 mg, By Mouth, Every 6 hours, PRN as needed for pain, # 50 tablet, 0 Refills, Maintenance, 11/13/19 18:24:00 EDT, Tablet, [facility]/pharmacy #1026, 161, cm, 11/13/19 16:06:00 [...] Details, Route to [facility], [facility], 160, cm, 08/02/20 13:35:00 EST, Height, 53.2, kg,... Start Date: 09/04/20 Status: Ordered Multivitamins with Folic Acid 1 mg oral tablet 1 tablet, By Mouth, Daily, # 90 tablet, 3 Refills, Maintenance, 06/21/20 14:53:00 EST, Tablet, [facility]/pharmacy #1026, 1 tablet By Mouth [...] reports she was hospitalized at [facility] in February 2020 due to an [...] delivery of twin 6Currently in couseling through [facility] weekly on the phone. States currently feels safe and stable.Stopped taking medication due to . 7Currently sees Dr. Coulter for dermatology. No longer receives injections--states that she is on creams/ointments. States Dr. Coulter is aware of . Next appointment in August. 8Followed by dermatology (Dr. Coulter [address] [facility]). Receives weekly injections/ derm is aware of Procedures Procedure Date Related Diagnosis Body Site Status Dilation and curettage Co mpleted Vital Signs Most recent to oldest [Reference Range]: 1 Oxygen Saturation [94-100 %] 100 % (01/29/21 12:20 PM) Pulse Rate [55-90 bpm] 83 bpm (01/29/21 12:20 PM) Blood Pressure [90-138/55-84 mm Hg] 121/ 78mm Hg (01/29/21 12:20 PM) Respiratory Rate [16-30 br/min] 18 br/mi n (01/29/21 12:20 PM) Temperature [96.8-100.4 DegF] 98.3 DegF (01/29/21 12:20 PM) Mode of Delivery (Oxygen) Room air (01/29/21 12:20 PM) Blood pressure sites Arm, left (01/29/21 12:20 PM) Temperature Route Oral (01/29/21 12:20 PM) Social History Social History Type Response Tobacco Use: 4 or less cigar ettes(less than 1/4 pack)/day in last 30 days. Other: Smokes 3-4 cigarettes daily. Declines NRT or smoking cessation. Sex
--- OUTSIDE RECORDS SUMMARY | 2023-03-27 19:02 | XMS_ITS | Continuity of Care Document ---
Author Name Unknown Organization [facility] Address [address] [place] [address]- Care Team Providers Care Food Preparation Supervisor Name Role Phone Júnior Cunha MD Primary Care Physician [phone] [place] [facility] Date(s): 01/25/21 - 03/21/[address] [address]- Attending Physician: Not on Staff, Attending MD Referring Physician: Júnior Cunha MD Allergies, Adverse Reactions, Alerts Substance Reaction Severity Status NKA Active Immunizations Given and Recorded Vaccine Date Status Refusal Reason Influenza Virus Vaccine (oldterm) 1 06/11/20 Recor ded influ virus vac, H1N1, inactive(oldterm) 06/06/09 Given 1Result Comment: Patient states she received flu vaccine this month at [facility] Medications acetaminophen 500 mg oral tablet 2 tablet = 1,000 mg, By Mouth, Every 6 hours, PRN as needed for pain, # 50 tablet, 0 Refills, Maintenance, 11/13/19 18:24:00 EDT, Tablet, [facility]/pharmacy #1026, 161, cm, 11/13/19 16:06:00 EDT, Height [...] Details, Route to Pharmacy Electronically, [facility] 70312, 160, cm, 08/02/20 13:35:00 EST, Height, 53.2, kg,... Start Date: 09/04/20 Status: Ordered Multivitamins with Folic Acid 0.8 mg oral tablet 1 tablet, By Mouth, Daily, # 90 tablet, 2 Refills, Maintenance, 02/22/21 14:41:00 EDT, Tablet, [facility]/pharmacy #1026, Partial fill upon patient request if the prescription is for a schedule II opioid drug., 1 tablet By Mouth Daily, 160, cm, 01/19/21 15:0... Start Date: 02/22/21 Status: Ordered Multivitamins with Folic Acid 1 mg oral tablet 1 tablet, By Mouth, Daily, # 90 tablet, 2 Refills, Maintenance, 01/31/21 11:48:00 EDT, Tablet, [facility]/pharmacy #1026, Partial fill upon patient request if the prescription is for a schedule II opioid drug., 1 tablet By Mouth Daily, 160, cm, 01/19/21 15:0... Start Date: 01/31/21 Status: Ordered Multivitamins with Folic Acid 1 mg oral tablet 1 tablet, By Mouth, Daily, # 90 tablet, 3 Refills, Maintenance, 06/21/20 14:53:00 EST, Tablet, [facility]/pharmacy #1026, 1 tablet By Mouth Daily, 161, [...] 03/16/2020 2Patient reports she was hospitalized at [facility] in February 2020 due to an [...] delivery of twin 6Currently in couseling through [facility] weekly on the phone. States currently feels safe and stable.Stopped taking medication due to . 7Currently sees Dr. Coulter for dermatology. No longer receives injections--states that she is on creams/ointments. States Dr. Coulter is aware of . Next appointment in August. 8Followed by dermatology (Dr. Coulter [address] [facility]). Receives weekly injections/ derm is aware of Social History Social History Type Response Tobacco Use: 4 or less cigar ettes(less than 1/4 pack)/day in last 30 days. Other: Smokes 3-4 cigarettes daily. Declines NRT or smoking cessation. Sex
--- OUTSIDE RECORDS SUMMARY | 2023-03-27 19:02 | XMS_ITS | Continuity of Care Document ---
Author Name Unknown Organization [facility] Address [address] [place] [address]- Care Team Providers Care Bag Patcher Name Role Phone Donny Chery NP Primary Care Physician Encounter [facility] Date(s): 02/10/20 - 04/06/20 [facility] [address] [place] [address] [facility] Attending Physician: Joon Quiroz MD Admitting Physician: Joon Quiroz MD Referring Physician: Donny Chery NP Allergies, [...] 11/13/19 18:24:00 EDT, Route to Pharmacy Electronically, [facility]/pharmacy #1026, 161, cm, 11/13/19 16:06:00 EDT, Height Start Date: 11/13/19 Status: Ordered Lovenox 40 mg/0.4 mL injectable solution See Instructions, Subcutaneous Infusion Daily, 0 Refills, Maintenance, 03/16/20 13:48:00 EDT Start Date: 03/16/20 Status: Ordered miSOPROStol 200 mcg oral tablet 4 tablet = 800 mcg, Vaginally, Once, # 4 tablet, 0 Refills, Soft Stop, 11/13/19 18:22:00 EDT, [facility]/pharmacy #1026, 161, cm, 11/13/19 16:06:00 [...] 3 Refills, Maintenance, 11/03/19 11:54:00 EDT, Tablet, [facility] [place], [place] -, 1 tablet By Mouth [...] 1 Active 1Followed by dermatology (Dr. Coulter [address] [place] [address]). Receives weekly injections/ derm is aware of Social History Social History Type Response Tobacco Use: 4 or less cigar ettes(less than 1/4 pack)/day in last 30 days. Other: Patient states she is trying to stop smoking now that she is / smokes 3-4 cigarettes daily. Sex
--- OUTSIDE RECORDS SUMMARY | 2023-03-27 19:02 | XMS_ITS | Continuity of Care Document ---
Author Name Unknown [facility] Address [address], [address] [place] [address]- Care Team Providers Care Remote Sensing Advisor Name Role Phone Alphonse CRUZ, Júnior Amezquita Primary Care Physician En[facility] Date(s): 01/03/21 - [facility] [address] [place] [address]- Allergies, Adverse Reactions, Alerts Substance Reaction Severity Status NKA Active Immunizations Given and Recorded Vaccine Date Status Refusal Reason Influenza Virus Vaccine (oldterm) 1 06/11/20 Recor ded influ virus vac, H1N1, inactive(oldterm) 06/06/09 Given 1Result Comment: Patient states she received flu vaccine this month at [facility] Medications acetaminophen 500 mg oral tablet 2 tablet = 1,000 mg, By Mouth, Every 6 hours, PRN as needed for pain, # 50 tablet, 0 Refills, Maintenance, 11/13/19 18:24:00 EDT, Tablet, [facility]/pharmacy #1026, 161, cm, 11/13/19 16:06:00 EDT, Height [...] Replace Required Details, Route to Pharmacy Electronically, [facility] STORE 76603, 160, cm, 08/02/20 13:35:00 EST, Height, 53.2, kg,... Start Date: 09/04/20 Status: Ordered Multivitamins with Folic Acid 1 mg oral tablet 1 tablet, By Mouth, Daily, # 90 tablet, 2 Refills, Maintenance, 01/31/21 11:48:00 EDT, Tablet, [facility]/pharmacy #1026, Partial fill upon patient request if the prescription is for a schedule II opioid drug., 1 tablet By Mouth Daily, 160, cm, 01/19/21 15:0... Start Date: 01/31/21 Status: Ordered Multivitamins with Folic Acid 1 mg oral tablet 1 tablet, By Mouth, Daily, # 90 tablet, 3 Refills, Maintenance, 06/21/20 14:53:00 EST, Tablet, [facility]/pharmacy #1026, 1 tablet By Mouth Daily, 161, [...] 03/16/2020 2Patient reports she was hospitalized at [facility] in February 2020 due to [...] August. 8Followed by dermatology (Dr. Coulter [address] [facility]). Receives weekly injections/ derm is aware of Social History Social History Type Response Tobacco Use: 4 or less cigar ettes(less than 1/4 pack)/day in last 30 days. Other: Smokes 3-4 cigarettes daily. Declines NRT or smoking cessation. Sex
--- OUTSIDE RECORDS SUMMARY | 2023-03-27 19:02 | XMS_ITS | Continuity of Care Document ---
Author Name Unknown Organization [facility] Address [address] [place] [address]- Care Team Providers Care Old Testament Professor Name Role Phone Júnior Cunha MD Primary Care Physician [place] [facility] [place] 10/24/20 - 11/24/[address] [address]- Attending Physician: Not on Staff, Attending MD Referring Physician: Júnior Cunha MD Allergies, Adverse Reactions, Alerts Substance Reaction Severity Status NKA Active Immunizations Given and Recorded Vaccine Date Status Refusal Reason Influenza Virus Vaccine (oldterm) 1 06/11/20 Recor ded influ virus vac, H1N1, inactive(oldterm) 06/06/09 Given 1Result Comment: Patient states she received flu vaccine this month at [facility] Medications acetaminophen 500 mg oral tablet 2 tablet = 1,000 mg, By Mouth, Every 6 hours, PRN as needed for pain, # 50 tablet, 0 Refills, Maintenance, 11/13/19 18:24:00 EDT, Tablet, [facility]/pharmacy #[id number], 161, cm, 11/13/19 16:06:00 [...] Replace Required Details, Route to Pharmacy Electronically, [id number], 160, cm, 08/02/20 13:35:00 EST, Height, 53.2, [...] 03/16/2020 2Patient reports she was hospitalized at [facility] in February 2020 due to [...] in August. 8Followed by dermatology (Dr. Coulter [address] [place] [address]). Receives weekly injections/ derm is aware of Social History Social History Type Response Tobacco Use: 4 or less cigar ettes(less than 1/4 pack)/day in last 30 days. Other: Smokes 3-4 cigarettes daily. Declines NRT or smoking cessation. Sex
--- OUTSIDE RECORDS SUMMARY | 2023-03-27 19:02 | XMS_ITS | Continuity of Care Document ---
Author Name Unknown Organization [facility] ter Address [address] [place] [address]- Care Team Providers Care Pipe Smoking Machine Offbearer Name Role Phone Júnior Cunha MD Primary Care Physician Encounter [facility] [place] Date(s): 07/21/20 - 07/21/[address] [address] Discharge Disposition: A-D/C Home Attending Physician: Wayne Sigala MD Admitting Physician: Wayne Sigala MD Referring Physician: Wayne Sigala MD Allergies, Adverse Reactions, Alerts Substance Reaction Severity Status NKA Active Immunizations Given and Recorded Vaccine Date Status Refusal Reason Influenza Virus Vaccine (oldterm) 1 06/11/20 Recor ded influ virus vac, H1N1, inactive(oldterm) 06/06/09 Given 1Result Comment: Patient states she received flu vaccine this month at [facility] Medications acetaminophen 500 mg oral tablet 2 tablet = 1,000 mg, By Mouth, Every 6 hours, PRN as needed for pain, # 50 tablet, 0 Refills, Maintenance, 11/13/19 18:24:00 EDT, Tablet, [facility]/pharmacy #1026, 161, cm, [...] 07/21/20 8:16:00 EST, Route to Pharmacy Electronically, [facility]/pharmacy #[id number], Partial fill upon patient request if the prescription is for... Start Date: 07/21/20 Status: Ordered OxyCODONE IR Tablet 5 mg, Tablet, By Mouth, Every 4 hours, in PACU ONLY, if patient can tolerate PO, PRN for Pain , Mild, Routine, 07/21/20 7:47:00 EST Start Date: 07/21/20 Stop Date: 07/21/20 Status: Discontinued Multivitamins with Folic Acid 1 mg oral tablet 1 tablet, By Mouth, Daily, # 90 tablet, 3 Refills, Maintenance, 06/21/20 14:53:00 EST, Tablet, [facility]/pharmacy #1026, 1 tablet By Mouth [...] 03/16/2020 2Patient reports she was hospitalized at [facility] in February 2020 due to an [...] delivery of twin 6Currently in couseling through [facility] weekly on the phone. States currently feels safe and stable.Stopped taking medication due to . 7Currently sees Dr. Coulter for dermatology. No longer receives injections--states that she is on creams/ointments. States Dr. Coulter is aware of . Next appointment in August. 8Followed by dermatology (Dr. Coulter [address] [place] [address]). Receives weekly injections/ derm is aware of Vital Signs Most recent to oldest [Reference Range]: 1 2 3 Height 160 cm (07/21/20 6:59 AM) Weight 53.2 kg (07/21/20 6:59 AM) Oxygen Saturation [94-100 %] 100 % (07/21/20 9:15 AM) 100 % (07/21/20 9:00 AM) 100 % (07/21/20 8:45 AM) Pulse Rate [55-90 bpm] 69 bpm (07/21/20 6:59 AM) Body Mass Index [18.5-24.99] 20.78 (07/21/20 6:59 AM) Blood Pressure [90-138/55-84 mm Hg] 122/72mm Hg (07/21/20 9:15 AM) 114/73mm Hg (07/21/20 9:00 AM) 119/82mm Hg (07/21/20 8:45 AM) Respiratory Rate [16-30 br/min] 18 br/min (07/21/20 9:50 AM) 12 br/min *L* (07/21/20 9:15 AM) 11 br/min *L* (07/21/20 9:00 AM) Temperature [96.8-100.4 DegF] 98.4 DegF (07/21/20 10:15 AM) 98.6 DegF (07/21/20 8:15 AM) 98.5 DegF (07/21/20 6:59 AM) Liters per Minute 3 L/min (07/21/20 9:00 AM) 3 L/min (07/21/20 8:45 AM) 3 L/min (07/21/20 8:30 AM) Mode of Delivery (Oxygen) Room air (07/21/20 9:15 AM) Simple face mask (07/21/20 9:00 AM) Simple face mask (07/21/20 8:45 AM) Blood pressure sites Arm, left (07/21/20 6:59 AM) Temperature Route Temporal (07/21/20 10:15 AM) Temporal (07/21/20 8:15 AM) Temporal (07/21/20 6:59 AM) Dry Weight 53.2 kg (07/21/20 6:59 AM) Weight Obtained Via Standing scale (07/21/20 6:59 AM) Dry Weight Obtained Via Standing scale (07/21/20 6:59 AM) Social History Social History Type Response Tobacco Use: 4 or less cigar ettes(less than 1/4 pack)/day in last 30 days. Other: Smokes 3-4 cigarettes daily. Declines NRT or smoking cessation. Sex
--- OUTSIDE RECORDS SUMMARY | 2023-03-27 19:02 | XMS_ITS | Continuity of Care Document ---
Author Name Unknown Organization [facility] ter Address [address] [place] [address]- Care Team Providers Care Customer Success Manager Name Role Phone Donny Chery NP Primary Care Physician [place] [facility] [place] 11/13/19 - 11/13/[address] [address]- [facility] Discharge Disposition: A-D/C Home Attending Physician: Aleah Saini MD Admitting Physician: Aleah Saini MD Referring Physician: Aleah Siani MD Allergies, Adverse Reactions, Alerts Substance Reaction [...] 18:24:00 EDT, Route to Pharmacy Electronically, [facility]/pharmacy #[id number], 161, cm, 11/13/19 16:06:00 EDT, Height Start Date: 11/13/19 Status: Ordered miSOPROStol 200 mcg oral tablet 4 tablet = 800 mcg, Vaginally, Once, # 4 tablet, 0 Refills, Soft Stop, 11/13/19 18:22:00 EDT, [facility]/pharmacy #[id number], 161, cm, 11/13/19 16:06:00 [...] 3 Refills, Maintenance, 11/03/19 11:54:00 EDT, Tablet, [facility] [place] [place] -, 1 tablet By Mouth Daily, [...] 1 Active 1Followed by dermatology (Dr. Coulter [address] [place] [address]). Receives weekly injections/ derm is aware of Vital Signs Most recent to oldest [Reference Range]: 1 Height 161 cm (11/13/19 4:06 PM) Weight 53.5 kg (11/13/19 3:09 PM) Oxygen Saturation [94-100 %] 100 % (11/13/19 3:09 PM) Pulse Rate [55-90 bpm] 92 bpm *H* (11/13/19 3:09 PM) Blood Pressure [90-138/55-84 mm Hg] 134/ 80mm Hg (11/13/19 3:09 PM) Respiratory Rate [16-30 br/min] 16 br/mi n (11/13/19 3:09 PM) Temperature [96.8-100.4 DegF] 98.4 DegF (11/13/19 3:09 PM) Blood pressure sites Arm, right (11/13/19 3:09 PM) Temperature Route Oral (11/13/19 3:09 PM) Weight Obtained Via Standing scale (11/13/19 3:09 PM) Social History Social History Type Response Tobacco Use: 4 or less cigar ettes(less than 1/4 pack)/day in last 30 days. Other: Patient states she is trying to stop smoking now that she is / smokes 3-4 cigarettes daily. Sex
--- OUTSIDE RECORDS SUMMARY | 2023-03-27 19:02 | XMS_ITS | Continuity of Care Document ---
Author Name Unknown Organization [facility] Address [address] [place] [address]- Care Team Providers Care Metal And Plastic Heater Name Role Phone Alphonse CRUZ, Júnior Amezquita Primary Care Physician [phone] [place] [facility] [place] Date(s): 09/25/20 - 10/25/[address] [address] Allergies, Adverse Reactions, Alerts Substance Reaction Severity Status NKA Active Immunizations Given and Recorded Vaccine Date Status Refusal Reason Influenza Virus Vaccine (oldterm) 1 06/11/20 Recor ded influ virus vac, H1N1, inactive(oldterm) 06/06/09 Given 1Result Comment: Patient states she received flu vaccine this month at [facility] Medications acetaminophen 500 mg oral tablet 2 tablet = 1,000 mg, By Mouth, Every 6 hours, PRN as needed for pain, # 50 tablet, 0 Refills, Maintenance, 11/13/19 18:24:00 EDT, Tablet, [facility]/pharmacy #1026, 161, cm, 11/13/19 16:06:00 EDT, [...] Required Details, Route to Pharmacy Electronically, [facility] [id number], 160, cm, 08/02/20 13:35:00 EST, Height, 53.2, [...] 03/16/2020 2Patient reports she was hospitalized at [facility] in February 2020 due to an abscess [...] delivery of twin 6Currently in couseling through [facility] weekly on the phone. States currently feels safe and stable.Stopped taking medication due to . 7Currently sees Dr. Coulter for dermatology. No longer receives injections--states that she is on creams/ointments. States Dr. Coulter is aware of . Next appointment in August. 8Followed by dermatology (Dr. Coulter [address] [facility]). Receives weekly injections/ derm is aware of Social History Social History Type Response Tobacco Use: 4 or less cigar ettes(less than 1/4 pack)/day in last 30 days. Other: Smokes 3-4 cigarettes daily. Declines NRT or smoking cessation. Sex
--- OUTSIDE RECORDS SUMMARY | 2023-03-27 19:02 | XMS_ITS | Continuity of Care Document ---
Author Name Unknown Organization [facility] Address [address] [place] [address]- Care Team Providers Care Electrical Sign Wirer Helper Name Role Phone Alphonse CRUZ, Júnior Amezquita Primary Care Physician [place] [facility] [place] - 10/26/[address] [address] Allergies, Adverse Reactions, Alerts Substance Reaction Severity Status NKA Active Immunizations Given and Recorded Vaccine Date Status Refusal Reason Influenza Virus Vaccine (oldterm) 1 06/11/20 Recor ded influ virus vac, H1N1, inactive(oldterm) 06/06/09 Given 1Result Comment: Patient states she received flu vaccine this month at [facility] Medications acetaminophen 500 mg oral tablet 2 tablet = 1,000 mg, By Mouth, Every 6 hours, PRN as needed for pain, # 50 tablet, 0 Refills, Maintenance, 11/13/19 18:24:00 EDT, Tablet, [facility]/pharmacy #1026, 161, cm, 11/13/19 16:06:00 EDT, Height [...] Replace Required Details, Route to Pharmacy Electronically, [facility]ORE [id number], 160, cm, 08/02/20 13:35:00 EST, Height, 53.2, [...] 03/16/2020 2Patient reports she was hospitalized at [facility] in February 2020 due to an abscess [...] 8Followed by dermatology (Dr. Coulter [facility]). Receives weekly injections/ derm is aware of Social History Social History Type Response Tobacco Use: 4 or less cigar ettes(less than 1/4 pack)/day in last 30 days. Other: Smokes 3-4 cigarettes daily. Declines NRT or smoking cessation. Sex
--- OUTSIDE RECORDS SUMMARY | 2023-03-27 19:02 | XMS_ITS | Continuity of Care Document ---
Author Name Unknown Organization [facility] Address [address] [place] [address]- Care Team Providers Care Crotch Piece Baster Name Role Phone Not on Staff, PCP Primary Care Physician Unavail able [place] [facility] [place] - 11/27/[address] [address]- Attending Physician: Not on Staff, Attending MD Allergies, Adverse Reactions, Alerts No Known Allergies Immunizations Given and Recorded Vaccine Date Status Refusal Reason Influenza Virus Vaccine (oldterm) 1 06/11/20 Recor ded influ virus vac, H1N1, inactive(oldterm) 06/06/09 Given 1Result Comment: Patient states she received flu vaccine this month at [facility] Medications acetaminophen 500 mg oral tablet 2 tablet = 1,000 mg, By Mouth, Every 6 hours, PRN as needed for pain, # 50 tablet, 0 Refills, Maintenance, 11/13/19 18:24:00 EDT, Tablet, [facility]/pharmacy #1026, 161, cm, 11/13/19 16:06:00 EDT, Height [...] Route to Pharmacy Electronically, [facility]ORE [id number], 160, cm, 08/02/20 13:35:00 EST, Height, 53.2, [...] 03/16/2020 2Patient reports she was hospitalized at [facility] in February 2020 due to [...] August. 8Followed by dermatology (Dr. Coulter [facility]). Receives weekly injections/ derm is aware of Social History Social History Type Response Tobacco Use: 4 or less cigar ettes(less than 1/4 pack)/day in last 30 days. Other: Smokes 3-4 cigarettes daily. Declines NRT or smoking cessation. Sex Patient Care team information Care Team Personnel Name: Not on Staff, PCP Position: [facility] Physician (General Medicine) Member Role: PCP Care Team Related Persons Name: JOSE CHRISTIANSEN Address: home [address] [address]
--- OUTSIDE RECORDS SUMMARY | 2023-03-27 19:02 | XMS_ITS | Continuity of Care Document ---
Author Name Unknown Organization [facility] Address [address] [place] [address]- Care Team Providers Care Slicing Machine Operator/Tender Name Role Phone Alphonse CRUZ, Júnior Amezquita Primary Care Physician Encounter [facility] Date(s): 01/25/21 - 03/08/21 [facility] [address] [place] [id number] Attending Physician: Giovanna Rubin MD Admitting Physician: Giovanna Rubin MD Referring Physician: Sonia Lopez MD Allergies, Adverse Reactions, Alerts Substance Reaction Severity Status NKA Active Immunizations Given and Recorded Vaccine Date Status Refusal Reason Influenza Virus Vaccine (oldterm) 1 06/11/20 Recor ded influ virus vac, H1N1, inactive(oldterm) 06/06/09 Given 1Result Comment: Patient states she received flu vaccine this month at [facility] Medications acetaminophen 500 mg oral tablet 2 tablet = 1,000 mg, By Mouth, Every 6 hours, PRN as needed for pain, # 50 tablet, 0 Refills, Maintenance, 11/13/19 18:24:00 EDT, Tablet, [facility]/pharmacy #1026, 161, cm, 11/13/19 16:06:00 EDT, Height [...] Replace Required Details, Route to Pharmacy Electronically, [facility] [id number], 160, cm, 08/02/20 13:35:00 EST, Height, 53.2, kg,... Start Date: 09/04/20 Status: Ordered Multivitamins with Folic Acid 0.8 mg oral tablet 1 tablet, By Mouth, Daily, # 90 tablet, 2 Refills, Maintenance, 02/22/21 14:41:00 EDT, Tablet, [facility]/pharmacy #1026, Partial fill upon patient request if the prescription is for a schedule II opioid drug., 1 tablet By Mouth Daily, 160, cm, 01/19/21 15:0... Start Date: 02/22/21 Status: Ordered Multivitamins with Folic Acid 1 mg oral tablet 1 tablet, By Mouth, Daily, # 90 tablet, 2 Refills, Maintenance, 01/31/21 11:48:00 EDT, Tablet, [facility]/pharmacy #1026, Partial fill upon patient request if the prescription is for a schedule II opioid drug., 1 tablet By Mouth Daily, 160, cm, 01/19/21 15:0... Start Date: 01/31/21 Status: Ordered Multivitamins with Folic Acid 1 mg oral tablet 1 tablet, By Mouth, Daily, # 90 tablet, 3 Refills, Maintenance, 06/21/20 14:53:00 EST, Tablet, [facility]/pharmacy #1026, 1 tablet By Mouth Daily, 161, [...] 03/16/2020 2Patient reports she was hospitalized at [facility] in February 2020 due to an [...]
--- OUTSIDE RECORDS SUMMARY | 2023-03-27 19:02 | XMS_ITS | Continuity of Care Document ---
Author Name Unknown Organization [facility] Address [address] [place] [address]- Care Team Providers Care Motor Scooter Mechanic Name Role Phone Alphonse CRUZ, Júnior Amezquita Primary Care Physician En[place] [facility] [place] Date(s): 07/20/20 - 08/27/[address] [address]- Attending Physician: Not on Staff, Attending MD Allergies, Adverse Reactions, Alerts Substance Reaction Severity Status NKA Active Immunizations Given and Recorded Vaccine Date Status Refusal Reason Influenza Virus Vaccine (oldterm) 1 06/11/20 Recor ded influ virus vac, H1N1, inactive(oldterm) 06/06/09 Given 1Result Comment: Patient states she received flu vaccine this month at [facility] Medications acetaminophen 500 mg oral tablet 2 tablet = 1,000 mg, By Mouth, Every 6 hours, PRN as needed for pain, # 50 tablet, 0 Refills, Maintenance, 11/13/19 18:24:00 EDT, Tablet, [facility]/pharmacy #1026, 161, cm, 11/13/19 16:06:00 EDT, Height [...] 07/21/20 8:16:00 EST, Route to Pharmacy Electronically, [facility]/pharmacy #1026, Partial fill upon patient request if the prescription is for... Start Date: 07/21/20 Status: Ordered Multivitamins with Folic Acid 1 mg oral tablet 1 tablet, By Mouth, Daily, # 90 tablet, 3 Refills, Maintenance, 06/21/20 14:53:00 EST, Tablet, [facility]/pharmacy #1026, 1 tablet By Mouth Daily, 161, [...] 03/16/2020 2Patient reports she was hospitalized at [facility] in February 2020 due to an [...] 6Currently in couseling through [facility] weekly on the phone. States currently feels safe and stable.Stopped taking medication due to . 7Currently sees Dr. Coulter for dermatology. No longer receives injections--states that she is on creams/ointments. States Dr. Coulter is aware of . Next appointment in August. 8Followed by dermatology (Dr. Coulter [address] [place] [address]). Receives weekly injections/ derm is aware of Social History Social History Type Response Tobacco Use: 4 or less cigar ettes(less than 1/4 pack)/day in last 30 days. Other: Smokes 3-4 cigarettes daily. Declines NRT or smoking cessation. Sex
--- OUTSIDE RECORDS SUMMARY | 2023-03-27 19:02 | XMS_ITS | Continuity of Care Document ---
Author Name Unknown Organization [facility] Address [address] [place] [address]- Care Team Providers Care Flight Controls Engineer Name Role Phone Miri FAIRBANKS, Donny Primary Care Physician [phone] Encounter [facility] [place] Date(s): 04/04/20 - 05/04/20 [facility] [address] [place] [address]- [facility] Allergies, Adverse Reactions, Alerts Substance Reaction Severity [...] 11/13/19 18:24:00 EDT, Route to Pharmacy Electronically, [facility]/pharmacy #1026, 161, cm, 11/13/19 16:06:00 EDT, Height Start Date: 11/13/19 Status: Ordered Lovenox 40 mg/0.4 mL injectable solution See Instructions, Subcutaneous Infusion Daily, 0 Refills, Maintenance, 03/16/20 13:48:00 EDT Start Date: 03/16/20 Status: Ordered miSOPROStol 200 mcg oral tablet 4 tablet = 800 mcg, Vaginally, Once, # 4 tablet, 0 Refills, Soft Stop, 11/13/19 18:22:00 EDT, [facility]/pharmacy #1026, 161, cm, 11/13/19 16:06:00 EDT, Height [...] 3 Refills, Maintenance, 11/03/19 11:54:00 EDT, Tablet, [facility] [place] [place] -, 1 tablet By Mouth Daily, [...] 1 Active 1Followed by dermatology (Dr. Coulter [address] [place] [address]). Receives weekly injections/ derm is aware of Social History Social History Type Response Tobacco Use: 4 or less cigar ettes(less than 1/4 pack)/day in last 30 days. Other: Patient states she is trying to stop smoking now that she is / smokes 3-4 cigarettes daily. Sex
--- OUTSIDE RECORDS SUMMARY | 2023-03-27 19:02 | XMS_ITS | Continuity of Care Document ---
Author Name Unknown Organization [facility] Address [address] [place] [address]- Care Team Providers Care Safety Tech Name Role Phone Júnior Cunha MD Primary Care Physician Encounter [facility] [place] Date(s): 02/06/21 - 03/08/21 [facility] [address] [place] [id number] Attending Physician: Zeyad Smart Admitting Physician: AdmtrZeyad Referring Physician: Admtr, ArMelissa Allergies, Adverse Reactions, Alerts Substance Reaction Severity Status NKA Active Immunizations Given and Recorded Vaccine Date Status Refusal Reason Influenza Virus Vaccine (oldterm) 1 06/11/20 Recor ded influ virus vac, H1N1, inactive(oldterm) 06/06/09 Given 1Result Comment: Patient states she received flu vaccine this month at [facility] Medications acetaminophen 500 mg oral tablet 2 tablet = 1,000 mg, By Mouth, Every 6 hours, PRN as needed for pain, # 50 tablet, 0 Refills, Maintenance, 11/13/19 18:24:00 EDT, Tablet, [facility]/pharmacy #1026, 161, cm, 11/13/19 [...] Replace Required Details, Route to Pharmacy Electronically, [facility] STORE [address]01, 160, cm, 08/02/20 13:35:00 EST, Height, 53.2, kg,... Start Date: 09/04/20 Status: Ordered Multivitamins with Folic Acid 0.8 mg oral tablet 1 tablet, By Mouth, Daily, # 90 tablet, 2 Refills, Maintenance, 02/22/21 14:41:00 EDT, Tablet, [facility]/pharmacy #1026, Partial fill upon patient request if the prescription is for a schedule II opioid drug., 1 tablet By Mouth Daily, 160, cm, 01/19/21 15:0... Start Date: 02/22/21 Status: Ordered Multivitamins with Folic Acid 1 mg oral tablet 1 tablet, By Mouth, Daily, # 90 tablet, 2 Refills, Maintenance, 01/31/21 11:48:00 EDT, Tablet, [facility]/pharmacy #1026, Partial fill upon patient request if the prescription is for a schedule II opioid drug., 1 tablet By Mouth Daily, 160, cm, 01/19/21 15:0... Start Date: 01/31/21 Status: Ordered Multivitamins with Folic Acid 1 mg oral tablet 1 tablet, By Mouth, Daily, # 90 tablet, 3 Refills, Maintenance, 06/21/20 14:53:00 EST, Tablet, [facility]/pharmacy #1026, 1 tablet By [...] 03/16/2020 2Patient reports she was hospitalized at [facility] in February 2020 due to an [...] delivery of twin 6Currently in couseling through [facility] weekly on the phone. States currently feels safe and stable.Stopped taking medication due to . 7Currently sees Dr. Coulter for dermatology. No longer receives injections--states that she is on creams/ointments. States Dr. Coulter is aware of . Next appointment in August. 8Followed by dermatology (Dr. Coulter [address] [facility]). Receives weekly injections/ derm is aware of Social History Social History Type Response Tobacco Use: 4 or less cigar ettes(less than 1/4 pack)/day in last 30 days. Other: Smokes 3-4 cigarettes daily. Declines NRT or smoking cessation. Sex
--- OUTSIDE RECORDS SUMMARY | 2023-03-27 19:02 | XMS_ITS | Continuity of Care Document ---
Author Name Unknown Organization [facility] ter Address [address] [place] [address]- Care Team Providers Care Surgeon Chief Name Role Phone Sandra CRUZ, Romariowinfieldsade Primary Care Physician [place] [facility] [facility] [place]/19 - 09/07/[address] [address] [facility] Attending Physician: Pranav Coulter MD Allergies, Adverse Reactions, Alerts Substance Reaction Severity Status NKA Active Immunizations Given and Recorded Vaccine Date Status Refusal Reason influ virus vac, H1N1, inactive(oldterm) 06/06/09 Given Medications ferrous fumarate 100 mg/5 ml oral suspension [...] Maintenance, Suspension Start Date: 11/15/09 Status: Ordered [place] Multivitamins oral tablet, chewable [...]
--- OUTSIDE RECORDS SUMMARY | 2023-03-27 19:02 | XMS_ITS | Continuity of Care Document ---
Author Name Unknown Organization [facility] Address [address] [place] [place] [id number]- Care Team Providers Care Slasher Tender Name Role Phone Alphonse CRUZ, Júnior Amezquita Primary Care Physician Encounter [facility] Date(s): 09/04/20 - 10/04/[address] [address]- Allergies, Adverse Reactions, Alerts Substance Reaction Severity Status NKA Active Immunizations Given and Recorded Vaccine Date Status Refusal Reason Influenza Virus Vaccine (oldterm) 1 06/11/20 Recor ded influ virus vac, H1N1, inactive(oldterm) 06/06/09 Given 1Result Comment: Patient states she received flu vaccine this month at [facility] Medications acetaminophen 500 mg oral tablet 2 tablet = 1,000 mg, By Mouth, Every 6 hours, PRN as needed for pain, # 50 tablet, 0 Refills, Maintenance, 11/13/19 18:24:00 EDT, Tablet, [facility]/pharmacy #[id number], 161, cm, 11/13/19 16:06:00 EDT, [...] Required Details, Route to Pharmacy Electronically, [facility] STORE [id number], 160, cm, 08/02/20 13:35:00 EST, Height, 53.2, [...] 03/16/2020 2Patient reports she was hospitalized at [facility] in February 2020 due to [...] delivery of twin 6Currently in couseling through [facility] weekly on the phone. States currently feels safe and stable.Stopped taking medication due to . 7Currently sees Dr. Coulter for dermatology. No longer receives injections--states that she is on creams/ointments. States Dr. Coulter is aware of . Next appointment in August. 8Followed by dermatology (Dr. Coulter [address] [facility]). Receives weekly injections/ derm is aware of Social History Social History Type Response Tobacco Use: 4 or less cigar ettes(less than 1/4 pack)/day in last 30 days. Other: Smokes 3-4 cigarettes daily. Declines NRT or smoking cessation. Sex
--- OUTSIDE RECORDS SUMMARY | 2023-03-27 19:02 | XMS_ITS | Continuity of Care Document ---
Author Name Unknown Organization [facility] Address [address] [place] [address]- Care Team Providers Care Cupola Hoist Operator Name Role Phone Miri FAIRBANKS, Donny Primary Care Physician Encounter [facility] Date(s): 03/10/20 - 04/09/20 [facility] [address] [place] [phone]- [facility] Allergies, Adverse Reactions, Alerts Substance Reaction Severity [...] 11/13/19 18:24:00 EDT, Route to Pharmacy Electronically, [facility]/pharmacy #[id number], 161, cm, 11/13/19 16:06:00 EDT, Height Start Date: 11/13/19 Status: Ordered Lovenox 40 mg/0.4 mL injectable solution See Instructions, Subcutaneous Infusion Daily, 0 Refills, Maintenance, 03/16/20 13:48:00 EDT Start Date: 03/16/20 Status: Ordered miSOPROStol 200 mcg oral tablet 4 tablet = 800 mcg, Vaginally, Once, # 4 tablet, 0 Refills, Soft Stop, 11/13/19 18:22:00 EDT, [facility]/pharmacy #[id number], 161, cm, 11/13/19 16:06:00 EDT, Height [...] 3 Refills, Maintenance, 11/03/19 11:54:00 EDT, Tablet, [facility] [place], [place] -, 1 tablet By Mouth Daily, [...] 1 Active 1Followed by dermatology (Dr. Coulter [address] [place] [address]). Receives weekly injections/ derm is aware of Social History Social History Type Response Tobacco Use: 4 or less cigar ettes(less than 1/4 pack)/day in last 30 days. Other: Patient states she is trying to stop smoking now that she is / smokes 3-4 cigarettes daily. Sex
--- OUTSIDE RECORDS SUMMARY | 2023-03-27 19:02 | XMS_ITS | Continuity of Care Document ---
Author Name Unknown Organization [facility] Address [address] [place] [phone]- Care Team Providers Care Diesel Power Shovel Operator Name Role Phone Alphonse CRUZ, Júnior Amezquita Primary Care Physician [place] [facility] [place](s): 10/24/20 - 11/23/[address] [id number] Allergies, Adverse Reactions, Alerts Substance Reaction Severity [...] Details, Route to Pharmacy Electronically, [facility] STORE [id number], 160, cm, 08/02/20 13:35:00 EST, Height, 53.2, [...] 03/16/2020 2Patient reports she was hospitalized at [facility] in February 2020 due to [...] August. 8Followed by dermatology (Dr. Coulter [facility]). Receives weekly injections/ derm is aware of Social History Social History Type Response Tobacco Use: 4 or less cigar ettes(less than 1/4 pack)/day in last 30 days. Other: Smokes 3-4 cigarettes daily. Declines NRT or smoking cessation. Sex
--- NOTE | 2023-03-27 19:23 | PC.NURSE ---
Assumed care of pt. pt lying on stretcher, sig other at bedside, pt c/o flank pressure/pain 04/20 despite previously administered medications. Also sts vomited twice in bathroom. Plan to obtain additional orders. of note, pt was dozing off when this RN entered room, VSS as charted./
[2023-03-27 19:27] VITALS: BP 147/83; PULSE 48; RESP 16; O2SAT 100
[2023-03-27] MEDS: LORazepam 2 MG/ML VIAL 1 MG IVPUSH (19:46)
[2023-03-27] MEDS: oxyCODONE HCl Immed Release 5 MG TABLET PO (19:46)
--- NOTE | 2023-03-27 20:37 | PHA.MEDREC ---
Pharmacy Consult ? Medication Reconciliation Pharmacy has completed the medication reconciliation. Patient reports only pre- vitamins and sometimes she will take trazodone 50 mg from a friend Josseline Siddiqui, PharmD
--- NOTE | 2023-03-27 20:41 | PM.IMHP ---
History of Present Illness Date of Service: 03/27/23 Chief Complaint: Nausea/vomiting This is a 33-year-old female with pertinent history of marijuana use disorder who presents to the emergency department for evaluation of nausea and vomiting. Patient states it started on the day of presentation and she has had multiple episodes of nonbloody emesis. Unable to tolerate p.o. intake due to severe nausea. Patient admits to smoking marijuana every day. Patient states he had a similar admission about a year ago. Denies symptoms of gastroesophageal reflux disease. No fever or chills. Also has intermittent generalized abdominal discomfort, nonradiating, nonprogressive. Patient denies chest discomfort, palpitations, shortness of breath, changes in urinary or bowel habits. In the emergency department, patient with vomiting despite multiple doses of antiemetics. Review of Systems Constitutional: Constitutional: Reports fatigue Cardiovascular: Cardiovascular: Reports no additional cardiovascular complaints Respiratory: Respiratory: Reports no additional respiratory complaints Gastrointestinal: Gastrointestinal: Reports abdominal pain, Reports nausea and Reports vomiting Genitourinary: Genitourinary: Reports no additional female genitourinary complaints Endocrine: Endocrine: Reports fatigue PMFSH Medical History Marijuana smoker Pertinent family history: No family history of early CAD Surgical History S/P cholecystectomy Social History Alcohol intake: current Alcohol intake frequency: holidays/special occasions only Patient Tobacco Use Status: Never used Tobacco Smoked in Last 30 Days: Yes Use of substances other than those prescribed or required for medical reasons: Yes Substance Use Type: Marijuana Advance Directives: No Advance Directives Information Provided: No Nutrition Risks: No Nutritional Risk Patient : No Meds Allergies Allergy/AdvReac Type Severity Reaction Status Date / Time No Known Allergies Allergy Verified 03/27/23 17:33 Home Medications Medication Instructions Recorded Confirmed Last Taken Type vitamin 1 tab PO DAILY 03/27/23 03/27/23 Unknown History no.76-iron,carbonyl 29 mg iron-folic acid 1 mg tablet (Prenatabs Rx) Physical Exam Vital Signs and Narrative: Vital Signs: Last Vital Signs Temp 98.5 F 03/27/23 16:45 Pulse 48 L 03/27/23 19:27 Resp 16 03/27/23 19:27 BP 147/83 H 03/27/23 19:27 Pulse Ox 100 03/27/23 19:27 O2 Del Method Room Air 03/27/23 16:45 BMI result Body Mass Index 26.6 Middle-aged female lying in bed in no distress Neck supple, no JVD Regular rate and rhythm, S1-S2 heard Regular breath sounds bilaterally, no wheezing or crackles appreciated Abdomen soft nontender, no guarding, no rigidity Patient is awake, alert and oriented to self, place, time and person ; no focal motor deficit Psych: Normal mood No pedal edema Results Labs 03/27/23 17:02 03/27/23 17:02 Labs: Laboratory Results - last 24 hr 03/27/23 03/27/23 03/27/23 17:02 17:02 17:49 MCV 88.2 MCH 29.7 MCHC 33.6 RDW 14.5 Plt Count 308 MPV 9.5 Immature Gran % (Auto) 0.1 Neut % (Auto) 55.5 Lymph % (Auto) 39.7 [place] % (Auto) 4.1 Eos % (Auto) 0.3 Baso % (Auto) 0.3 Lymph # (Auto) 2.9 [place] # (Auto) 0.3 Eos # (Auto) 0.0 Baso # (Auto) 0.0 Abs Immat Gran (auto) 0.01 Absolute Neuts (auto) 4.1 Absolute Nucleated RBC 0.000 Nucleated RBC % (auto) 0.0 Anion Gap 11 L Estim Creat Clear Calc 96.1 Estimated GFR > 60 Random Glucose 85 Calcium 9.5 Total Bilirubin 0.3 Direct Bilirubin 0.1 AST 15 ALT 8 Alkaline Phosphatase 55 Total Protein 7.2 Albumin 3.8 Lipase 17 Urine Color Yellow Urine Appearance Clear Urine pH >= 9.0 Ur Specific [place] 1.015 Urine Protein Trace Urine Glucose (UA) Negative Urine Ketones Negative Urine Blood Trace H Urine Nitrite Negative Ur Leukocyte Esterase Negative Urine RBC 11-20 H Urine WBC 0-5 Ur Squamous Epith Cells 0-2 Urine Bacteria None Seen Hyaline Casts 0-2 Urine Test 03/27/23 17:49 MCV MCH MCHC RDW Plt Count MPV Immature Gran % (Auto) Neut % (Auto) Lymph % (Auto) [place] % (Auto) Eos % (Auto) Baso % (Auto) Lymph # (Auto) [place] # (Auto) Eos # (Auto) Baso # (Auto) Abs Immat Gran (auto) Absolute Neuts (auto) Absolute Nucleated RBC Nucleated RBC % (auto) Anion Gap Estim Creat Clear Calc Estimated GFR Random Glucose Calcium Total Bilirubin Direct Bilirubin AST ALT Alkaline Phosphatase Total Protein Albumin Lipase Urine Color Urine Appearance Urine pH Ur Specific [place] Urine Protein Urine Glucose (UA) Urine Ketones Urine Blood Urine Nitrite Ur Leukocyte Esterase Urine RBC Urine WBC Ur Squamous Epith Cells Urine Bacteria Hyaline Casts Urine Test NEGATIVE Imaging Radiologist's Impressions: Impressions Abdomen/Pelvis CT 03/27/23 19:12 IMPRESSION: No acute intracranial process seen. Moderate hepatomegaly. Mild constipation. Appendix is not seen. The gallbladder has been removed. Fleischner guidelines were followed. Assessment and Plan (1) Intractable vomiting: Status: Acute Plan This is a 33-year-old female with pertinent history of marijuana use disorder who presents to the emergency department for evaluation of nausea and vomiting. #. Intractable vomiting, due to cannabis hyperemesis syndrome. Will admit patient and initiate IV crystalloid resuscitation. Symptomatic management with p.r.n. antiemetics. Monitor for symptom control. UDS pending DVT prophylaxis: Lovenox Full code Time Spent With Patient Time: Total time managing care of this patient today ____ minutes. Quality Stroke Does the patient have a stroke diagnosis?: No VTE Prior VTE?: No VTE Risk Level:: Medical - moderate - high VTE Device Contraindication: Treatment Not Indicated VTE Drug Contraindication: N/A - Med Ordered
[2023-03-27] MEDS: Metoclopramide HCl 10 MG/2 ML VIAL IVPUSH (20:49)
[2023-03-27] MEDS: Enoxaparin Sodium 40 MG/0.4 ML SYRINGE SUBCUT (20:49)
[2023-03-27] MEDS: 0.9 % Sodium Chloride 1,000 ML 999 ML IV (20:56)
[2023-03-27 21:14] LABS: Amphetamine Screen Urine Not Detected (Not Detect); Barbiturates, Urine Not Detected (Not Detect); Benzodiazepines Screen Urine Not Detected (Not Detect); Cannabinoid Screen Urine POSITIVE (Not Detect); Cocaine Screen Urine POSITIVE (Not Detect); Fentanyl, urine Not Detected (Not Detect); Opiate Screen Urine Not Detected (Not Detect); Phencyclidine Screen Urine Not Detected (Not Detect)
[2023-03-27] MEDS: HaloperidoL 1 MG TABLET PO (21:17)
[2023-03-28] MEDS: Acetaminophen 325 MG TABLET 650 MG PO ×2 (00:27→09:19)
[2023-03-28 00:28] VITALS: BP 133/81; PULSE 61; RESP 16; TEMP 36.9; O2SAT 99
[2023-03-28] MEDS: Melatonin 3 MG TABLET 6 MG PO ×2 (00:28→21:27)
[2023-03-28] MEDS: 0.9 % Sodium Chloride Flush 3 ML SYRINGE IVFLUSH (01:21)
[2023-03-28 01:43] VITALS: BP 143/94; PULSE 50; RESP 18; TEMP 37.1; O2SAT 100
--- NOTE | 2023-03-28 02:09 | PC.NURSE ---
Report to Ashley Almendarez RN
[2023-03-28 05:19] LABS: MANUAL DIFF FLAG NO
[2023-03-28 05:34] LABS: Basophils Percent Auto 0.4 % (0-2); Eosinophils Absolute Auto 0.1 X10*3/uL (0.0-0.4); Hematocrit 36.8 % (37.0-47.0); Hemoglobin 12.2 g/dl (12.0-16.0); Imm Gran Abs Auto 0.03 X10*3/uL (0.00-0.03); Imm Gran Pct Auto 0.4 % (0.0-0.4); Lymphocytes Absolute Auto 3.3 X10*3/uL (1.2-4.9); Lymphocytes Percent Auto 48.7 % (20-40); Mean Corpuscular HGB Conc 33.2 g/dl (31.0-35.0); Mean Corpuscular Hemoglobin 30.3 pg (27.0-33.0); Mean Corpuscular Volume 91.5 fL (80.0-98.0); Mean Platelet Volume 9.9 fL (9.4-12.3); Monocytes Absolute Auto 0.4 X10*3/uL (0.1-1.2); Monocytes Percent Auto 6.1 % (2-11); Neutrophils Percent Auto 43.4 % (45-73); Platelet Count 290 X10*3/uL (160-400); Red Blood Count 4.02 X10*6/uL (4.20-5.50); Red Cell Distribution Width 14.5 % (11.0-16.0); White Blood Count 6.9 X10*3/uL (4.8-10.8)
[2023-03-28 05:50] LABS: Anion Gap 10 (12-20); Blood Urea Nitrogen 4 mg/dL (9-16); Calcium 8.8 mg/dL (8.4-10.2); Carbon Dioxide 25 mmol/L (22-29); Chloride 108 mmol/L (96-108); Creatinine Clr Calc Pharmacy 102.9; Estimated Glomerular Filt Rate > 60; Glucose Random 78 mg/dL (60-115); Potassium 3.6 mmol/L (3.3-5.1); Sodium 139 mmol/L (135-145)
[2023-03-28 06:21] VITALS: BP 130/62; PULSE 62; RESP 18; TEMP 36.9; O2SAT 100
[2023-03-28] MEDS: Lactated Ringers 1,000 ML 125 ML IVCONT ×2 (09:14→16:41)
[2023-03-28] MEDS: ondansetron HCL 4 MG/2 ML VIAL IVPUSH ×2 (09:19→16:41)
--- NOTE | 2023-03-28 10:01 | MHC.CM.PN ---
[facility] DELIVERED PT LIVES WITH YOUNG CHILD IN AN APT. INDEPENDENT AT BASELINE. - THRIVE ASSESSMENT . NO HCP, PT DECLINES TO COMPLETE AT THIS TIME. NO PCP. COVID VAX BUT UNSURE OF HOW MANY. DP: HOME, NO SERVICES ANTICIPATED. MAY NEED C SHUTTLE AT DC VS LYFT RIDE. CM WILL CONTINUE TO FOLLOW FOR ANY CHANGE IN DC PLAN/NEEDS.
[2023-03-28] MEDS: Famotidine/PF 20 MG/2 ML VIAL IVPUSH (11:55)
--- NOTE | 2023-03-28 12:34 | HO.PM.IMPN ---
Subjective Subjective Date of Service: 03/28/23 Interval History: seen and examined this morning follow up for abdominal pain, nausea and vomiting continues to report epigastric abdominal pain and nausea. no diarrhea Review of Systems Review of Systems: Yes all other systems are reviewed and are negative Constitutional Constitutional: Denies chills and Denies fever(s) ENT Ears, Nose, Mouth, and Throat: Denies dizziness Cardiovascular Cardiovascular: Denies chest pain, Denies palpitations and Denies dyspnea Respiratory Respiratory: Denies cough and Denies dyspnea Gastrointestinal Gastrointestinal: Reports abdominal pain, Denies diarrhea and Reports nausea Neurologic Neurologic: Denies dizziness Endocrine Endocrine: Denies palpitations Physical Exam Vital Signs: Vital Signs: Last Vital Signs Temp 98.5 F 03/28/23 06:21 Pulse 62 03/28/23 06:21 Resp 18 03/28/23 06:21 BP 130/62 03/28/23 06:21 Pulse Ox 100 03/28/23 06:21 O2 Del Method Room Air 03/28/23 06:21 BMI result Body Mass Index 26.6 Const: General: cooperative, comfortable, no acute distress, alert and awake Nutritional Appearance: average body habitus Orientation/consciousness: patient oriented x3 Resp: Effort & Inspection: normal respiratory effort, able to speak in complete sentences, respiratory distress and uses accessory muscles Auscultation: not clear to auscultation bilaterally Cardio: Rate: regular rate Heart sounds: S1 normal heart sound present and S2 normal heart sound present GI: Other: mild epigastric tenderness to palpation Inspection: No distended Palpation (GI): Soft to palpation and no guarding Neuro: General: patient oriented x3, moves all extremities and CN's II-XI intact bilaterally Extrem: General: Yes no pedal edema Objective Data Active Medications Acetaminophen (Acetaminophen 325 Mg Tablet) 650 mg PO Q6H PRN PRN Reason: Pain, Mild (Pain Scale 1-3) Last Admin: 03/28/23 09:19 Dose: 650 mg Documented By: BRINA Enoxaparin Sodium (Enoxaparin Sodium 40 Mg/0.4 Ml Syringe) 40 mg SUBCUT Q24H [facility] Last Admin: 03/27/23 20:49 Dose: 40 mg Documented By: JONO Famotidine (Famotidine/Pf 20 Mg/2 Ml Vial) 20 mg IVPUSH DAILY [facility] Last Admin: 03/28/23 11:55 Dose: 20 mg Documented By: BRINA Lactated Ringer's (Lr) 1,000 mls @ 125 mls/hr IVCONT .Q8H [facility] Last Admin: 03/28/23 09:14 Dose: 125 mls/hr Documented By: BRINA Melatonin (Melatonin 3 Mg Tablet) 6 mg PO BEDTIME PRN PRN Reason: Insomnia Last Admin: 03/28/23 00:28 Dose: 6 mg Documented By: JONO Ondansetron HCl (Ondansetron Hcl 4 Mg/2 Ml Vial) 4 mg IVPUSH Q8H PRN PRN Reason: Nausea and Vomiting Last Admin: 03/28/23 09:19 Dose: 4 mg Documented By: BRINA Pharmacy Consult (Consult Rx Perform Med Rec) 1 each MISCELLANE ONCE PRN PRN Reason: Consult order Sodium Chloride (0.9 % Sodium Chloride Flush 3 Ml Syringe) 3 ml IVFLUSH QSHIFT [facility] Last Admin: 03/28/23 08:30 Dose: Not Given Documented By: BRINA Non-Admin Reason: See Note Labs 03/28/23 05:12 03/28/23 05:12 Labs: Laboratory Results - last 24 hr 03/27/23 03/27/23 03/27/23 17:02 17:02 17:49 MCV 88.2 MCH 29.7 MCHC 33.6 RDW 14.5 Plt Count 308 MPV 9.5 Immature Gran % (Auto) 0.1 Neut % (Auto) 55.5 Lymph % (Auto) 39.7 [place] % (Auto) 4.1 Eos % (Auto) 0.3 Baso % (Auto) 0.3 Lymph # (Auto) 2.9 [place] # (Auto) 0.3 Eos # (Auto) 0.0 Baso # (Auto) 0.0 Abs Immat Gran (auto) 0.01 Absolute Neuts (auto) 4.1 Absolute Nucleated RBC 0.000 Nucleated RBC % (auto) 0.0 Anion Gap 11 L Estim Creat Clear Calc 96.1 Estimated GFR > 60 Random Glucose 85 Calcium 9.5 Total Bilirubin 0.3 Direct Bilirubin 0.1 AST 15 ALT 8 Alkaline Phosphatase 55 Total Protein 7.2 Albumin 3.8 Lipase 17 Urine Color Yellow Urine Appearance Clear Urine pH >= 9.0 Ur Specific [place] 1.015 Urine Protein Trace Urine Glucose (UA) Negative Urine Ketones Negative Urine Blood Trace H Urine Nitrite Negative Ur Leukocyte Esterase Negative Urine RBC 11-20 H Urine WBC 0-5 Ur Squamous Epith Cells 0-2 Urine Bacteria None Seen Hyaline Casts 0-2 Urine Test Urine Opiates Screen Urine Fentanyl Screen Ur Barbiturates Screen Ur Phencyclidine Scrn Ur Amphetamines Screen U Benzodiazepines Scrn Urine Cocaine Screen U Marijuana (THC) Screen 03/27/23 03/27/23 03/28/23 17:49 17:49 05:12 MCV 91.5 MCH 30.3 MCHC 33.2 RDW 14.5 Plt Count 290 MPV 9.9 Immature Gran % (Auto) 0.4 Neut % (Auto) 43.4 L Lymph % (Auto) 48.7 H [place] % (Auto) 6.1 Eos % (Auto) 1.0 Baso % (Auto) 0.4 Lymph # (Auto) 3.3 [place] # (Auto) 0.4 Eos # (Auto) 0.1 Baso # (Auto) 0.0 Abs Immat Gran (auto) 0.03 Absolute Neuts (auto) 3.0 Absolute Nucleated RBC 0.000 Nucleated RBC % (auto) 0.0 Anion Gap Estim Creat Clear Calc Estimated GFR Random Glucose Calcium Total Bilirubin Direct Bilirubin AST ALT Alkaline Phosphatase Total Protein Albumin Lipase Urine Color Urine Appearance Urine pH Ur Specific [place] Urine Protein Urine Glucose (UA) Urine Ketones Urine Blood Urine Nitrite Ur Leukocyte Esterase Urine RBC Urine WBC Ur Squamous Epith Cells Urine Bacteria Hyaline Casts Urine Test NEGATIVE Urine Opiates Screen Not Detected Urine Fentanyl Screen Not Detected Ur Barbiturates Screen Not Detected Ur Phencyclidine Scrn Not Detected Ur Amphetamines Screen Not Detected U Benzodiazepines Scrn Not Detected Urine Cocaine Screen POSITIVE H U Marijuana (THC) Screen POSITIVE H 03/28/23 05:12 MCV MCH MCHC RDW Plt Count MPV Immature Gran % (Auto) Neut % (Auto) Lymph % (Auto) [place] % (Auto) Eos % (Auto) Baso % (Auto) Lymph # (Auto) [place] # (Auto) Eos # (Auto) Baso # (Auto) Abs Immat Gran (auto) Absolute Neuts (auto) Absolute Nucleated RBC Nucleated RBC % (auto) Anion Gap 10 L Estim Creat Clear Calc 102.9 Estimated GFR > 60 Random Glucose 78 Calcium 8.8 D Total Bilirubin Direct Bilirubin AST ALT Alkaline Phosphatase Total Protein Albumin Lipase Urine Color Urine Appearance Urine pH Ur Specific [place] Urine Protein Urine Glucose (UA) Urine Ketones Urine Blood Urine Nitrite Ur Leukocyte Esterase Urine RBC Urine WBC Ur Squamous Epith Cells Urine Bacteria Hyaline Casts Urine Test Urine Opiates Screen Urine Fentanyl Screen Ur Barbiturates Screen Ur Phencyclidine Scrn Ur Amphetamines Screen U Benzodiazepines Scrn Urine Cocaine Screen U Marijuana (THC) Screen Assessment and Plan (1) Intractable vomiting: Status: Acute Plan This is a 33-year-old female with pertinent history of marijuana use disorder who presents to the emergency department for evaluation of nausea and vomiting. Abdominal pain/N/V due to cannabis hyperemesis syndrome vs gastritis lipase negative. CT scan negative Symptomatic management with p.r.n. antiemetics, IV pepcid, IVF clear liquid diet, ADAT if persistent pain, consider GI evaluation DVT prophylaxis: Lovenox Full code attending - dr. barron patient requires ongoing stay as she is unable to take po Time Spent With Patient Time: Total time managing care of this patient today ____ minutes. Quality Stroke Does the patient have a stroke diagnosis?: No VTE Prior VTE?: No VTE Risk Level:: Medical - moderate - high VTE Device Contraindication: Treatment Not Indicated VTE Drug Contraindication: N/A - Med Ordered
[2023-03-28 14:49] VITALS: BP 146/91; PULSE 70; RESP 18; O2SAT 99
--- NOTE | 2023-03-28 14:50 | MHC.EDTECH ---
checked patients vitals and patient asked for something to eat. patient is currently on a liquid diet.
[2023-03-28] MEDS: Morphine Sulfate 2 MG/ML CARTRIDGE IVPUSH ×2 (15:26→20:07)
[2023-03-28 16:00] VITALS: BP 166/84; PULSE 59; RESP 19; TEMP 36.2; O2SAT 98
[2023-03-28] MEDS: hydrOXYzine HCL 25 MG TABLET PO (16:48)
[2023-03-28 18:56] VITALS: BP 127/67; PULSE 64; RESP 15; TEMP 36.4; O2SAT 98
[2023-03-28] MEDS: Enoxaparin Sodium 40 MG/0.4 ML SYRINGE SUBCUT (20:06)
[2023-03-29] MEDS: Lactated Ringers 1,000 ML 125 ML IVCONT ×3 (00:38→15:58)
[2023-03-29] MEDS: Morphine Sulfate 2 MG/ML CARTRIDGE IVPUSH ×3 (02:44→16:37)
[2023-03-29 04:00] VITALS: BP 137/80; PULSE 61; RESP 16; TEMP 36.2; O2SAT 97
[2023-03-29 08:00] VITALS: BP 162/86; PULSE 67; RESP 20; TEMP 36.8; O2SAT 98
[2023-03-29] MEDS: ondansetron HCL 4 MG/2 ML VIAL IVPUSH ×2 (08:12→18:39)
[2023-03-29] MEDS: Famotidine/PF 20 MG/2 ML VIAL IVPUSH (08:12)
[2023-03-29] MEDS: 0.9 % Sodium Chloride Flush 3 ML SYRINGE IVFLUSH (08:13)
--- NOTE | 2023-03-29 10:20 | HO.PM.IMPN ---
Subjective Subjective Date of Service: 03/29/23 Interval History: seen and examined this morning follow up for abdominal pain, nausea and vomiting reports constipation now with back pain Review of Systems Review of Systems: Yes all other systems are reviewed and are negative Constitutional Constitutional: Denies chills and Denies fever(s) ENT Ears, Nose, Mouth, and Throat: Denies dizziness Cardiovascular Cardiovascular: Denies chest pain, Denies palpitations and Denies dyspnea Respiratory Respiratory: Denies cough and Denies dyspnea Gastrointestinal Gastrointestinal: Reports abdominal pain, Denies diarrhea and Reports nausea Neurologic Neurologic: Denies dizziness Endocrine Endocrine: Denies palpitations Physical Exam Vital Signs: Vital Signs: Last Vital Signs Temp 98.3 F 03/29/23 08:00 Pulse 67 03/29/23 08:00 Resp 20 03/29/23 08:00 BP 162/86 H 03/29/23 08:00 Pulse Ox 98 03/29/23 08:00 O2 Del Method Room Air 03/29/23 08:00 BMI result Body Mass Index 26.6 Appearing in no acute distress lung sounds are clear to auscultation heart regular rate rhythm, clear S1, S2 positive bowel sounds, abdomen is soft, nontender neuro patient is alert x3, no focal deficits palpable mid back pain bilateral Objective Data Active Medications Acetaminophen (Acetaminophen 325 Mg Tablet) 650 mg PO Q6H PRN PRN Reason: Pain, Mild (Pain Scale 1-3) Last Admin: 03/28/23 09:19 Dose: 650 mg Documented By: BRINA Enoxaparin Sodium (Enoxaparin Sodium 40 Mg/0.4 Ml Syringe) 40 mg SUBCUT Q24H [facility] Last Admin: 03/28/23 20:06 Dose: 40 mg Documented By: MALIK Famotidine (Famotidine/Pf 20 Mg/2 Ml Vial) 20 mg IVPUSH DAILY [facility] Last Admin: 03/29/23 08:12 Dose: 20 mg Documented By: AUREA Lactated Ringer's (Lr) 1,000 mls @ 125 mls/hr IVCONT .Q8H [facility] Last Admin: 03/29/23 08:13 Dose: 125 mls/hr Documented By: AUREA Lidocaine (Lidocaine 4 % Patch Adh..Patch) 1 patch TRANSDERMA DAILY [facility]; Protocol Melatonin (Melatonin 3 Mg Tablet) 6 mg PO BEDTIME PRN PRN Reason: Insomnia Last Admin: 03/28/23 21:27 Dose: 6 mg Documented By: IMELDARISPeter Morphine Sulfate (Morphine Sulfate 2 Mg/Ml Cartridge) 2 mg IVPUSH Q4H PRN; Protocol PRN Reason: Pain, Severe (Pain Scale 7-10) Last Admin: 03/29/23 08:12 Dose: 2 mg Documented By: AUREA Ondansetron HCl (Ondansetron Hcl 4 Mg/2 Ml Vial) 4 mg IVPUSH Q8H PRN PRN Reason: Nausea and Vomiting Last Admin: 03/29/23 08:12 Dose: 4 mg Documented By: AUREA Pharmacy Consult (Consult Rx Perform Med Rec) 1 each MISCELLANE ONCE PRN PRN Reason: Consult order Sodium Chloride (0.9 % Sodium Chloride Flush 3 Ml Syringe) 3 ml IVFLUSH QSHIFT ARNOLDO Last Admin: 03/29/23 08:13 Dose: 3 ml Documented By: AUREA Labs 03/28/23 05:12 03/28/23 05:12 Assessment and Plan (1) Intractable vomiting: Status: Acute Plan This is a 33-year-old female with pertinent history of marijuana use disorder who presents to the emergency department for evaluation of nausea and vomiting. Abdominal pain/N/V/constipation due to cannabis hyperemesis syndrome vs gastritis lipase negative. CT scan negative Symptomatic management with p.r.n. antiemetics, IV pepcid, IVF advance diet to regular fleets enema for constipation, which may also be contributing to pain back pain mid back, bilateral seems MSK no numbness or tingling to extremities lidocaine patch ordered DVT prophylaxis: Lovenox Full code attending - Dr. Wesley patient requires ongoing stay as she is unable to take po Time Spent With Patient Time: Total time managing care of this patient today ____ minutes. Quality Stroke Does the patient have a stroke diagnosis?: No VTE Prior VTE?: No VTE Risk Level:: Medical - moderate - high VTE Device Contraindication: Treatment Not Indicated VTE Drug Contraindication: N/A - Med Ordered
[2023-03-29] MEDS: Mineral OiL enema 133 ML ENEMA PR (11:53)
[2023-03-29] MEDS: LORazepam 1 MG TABLET PO (13:37)
[2023-03-29] MEDS: Lidocaine 4 % Patch ADH..PATCH 1 PATCH TRANSDERMA (13:37)
[2023-03-29] MEDS: polyethylene glycoL 3350 17 GM POWD.PACK PO ×2 (13:37→19:56)
[2023-03-29 16:00] VITALS: BP 132/63; PULSE 90; RESP 20; TEMP 37.1; O2SAT 96
[2023-03-29 19:43] VITALS: PULSE 70; RESP 18; TEMP 36.4; O2SAT 98
[2023-03-29] MEDS: Enoxaparin Sodium 40 MG/0.4 ML SYRINGE SUBCUT (19:55)
[2023-03-29] MEDS: Zolpidem Tartrate 5 MG TABLET PO (19:55)
[2023-03-29] MEDS: Acetaminophen 325 MG TABLET 650 MG PO (19:55)
[2023-03-29] MEDS: Melatonin 3 MG TABLET 6 MG PO (22:33)
[2023-03-30 01:02] VITALS: BP 159/92; PULSE 57; RESP 18; TEMP 36.5; O2SAT 98
[2023-03-30] MEDS: Morphine Sulfate 2 MG/ML CARTRIDGE IVPUSH (01:08)
[2023-03-30] MEDS: Lactated Ringers 1,000 ML 125 ML IVCONT (02:52)
[2023-03-30] MEDS: ondansetron HCL 4 MG/2 ML VIAL IVPUSH (05:00)
[2023-03-30] MEDS: Famotidine/PF 20 MG/2 ML VIAL IVPUSH (08:56)
[2023-03-30] MEDS: Lidocaine 4 % Patch ADH..PATCH 1 PATCH TRANSDERMA (08:56)
[2023-03-30] MEDS: polyethylene glycoL 3350 17 GM POWD.PACK PO (08:56)
--- NOTE | 2023-03-30 10:17 | P.DS_ITS ---
DS: Providers Provider Date of Service: 03/30/23 Date of admission: 03/27/23 20:39 Primary care physician: Unknown Physician DS: Diagnosis Discharge Diagnosis (1) Intractable vomiting: Status: Acute DS: Summary Hospital Course Hospital Course: history and physical as per admitting provider. This is a 33-year-old female with pertinent history of marijuana use disorder who presents to the emergency department for evaluation of nausea and vomiting.? Patient states it started on the day of presentation and she has had multiple episodes of nonbloody emesis.? Unable to tolerate p.o. intake due to severe nausea.? Patient admits to smoking marijuana every day.? Patient states he had a similar admission about a year ago.? Denies symptoms of gastroesophageal reflux disease.? No fever or chills.? Also has intermittent generalized abdominal discomfort, nonradiating, no nprogressive.? Patient denies chest discomfort, palpitations, shortness of breath, changes in urinary or bowel habits. In the emergency department, patient with vomiting despite multiple doses of antiemetics. 33-year-old woman treated for Abdominal pain/N/V/constipation. Possibly due to cannabis hyperemesis syndrome versus gastritis. Nausea and vomiting resolved, lipase negative, abdominal CT with no acute abnormality. She was treated with symptomatic management including antiemetics, IV fluids, IV Pepcid. Diet was advanced to regular peer to treated with fleets enema and MiraLax for cons tipation. She also had complaints of back pain With no numbness, tingling. thoracic and lumbar x-ray negative for any acute abnormality. Recommended heat packs and Tylenol or ibuprofen. Daily stretching. Time Spent with Patient Time attestation: Total time managing care of this patient today ____ minutes. Discharge coordination time: Greater than 30 minutes Quality: Safe Use of Opioids Does Pt have an Active Cancer Diagnosis on the Problem List?: No Quality: Stroke Does the patient have a stroke diagnosis?: No Physical Exam Vital Signs: Vital Signs: Last Vital Signs Temp 97.7 F 03/30/23 01:02 Pulse 57 03/30/23 01:02 Resp 18 03/30/23 01:02 BP 159/92 H 03/30/23 01:02 Pulse Ox 98 03/30/23 01:02 O2 Del Method Room Air 03/30/23 01:02 BMI result Body Mass Index 26.6 Appearing in no acute distress head is normocephalic atraumatic eyes pupils are PERRLA sclera is anicteric mouth throat mucous membranes are intact and moist neck is supple no lymphadenopathy, no JVD noted lung sounds are clear to auscultation heart regular rate rhythm, clear S1, S2 positive bowel sounds, abdomen is soft, nontender neuro patient is alert x3, no focal deficits Discharge Plan Discharge Anticipated Discharge Date/Time: 03/30/23 13:22 Patient Disposition: Home, Self-Care Discharge Diagnosis: Intractable nausea and vomiting Discharge Medications: New omeprazole 20 mg tablet,delayed release (DR/EC) 20 mg PO DAILY Qty: 30 0RF polyethylene glycol 3350 [Miralax] 17 gram/dose powder 17 g PO DAILY Qty: 119 0RF Continued Prenatabs Rx 29 mg iron- 1 mg tablet 1 tab PO DAILY Discharge Orders: Discharge Order (Routine); Ordered 03/30/23 Ordered By: Yuridia Johnston Diet: Advance to usual diet Activity on Discharge: As tolerated Stand Alone Forms: Patient Portal Discharge page Care Plan Goals: complete resolution of symptoms may use heating pads and ibuprofen or tylenol for back pain Health Concerns: intractable nausea and vomiting Plan of Treatment: Follow-up with primary care provider as needed Take all medications as prescribed Assessment: see discharge summary
[2023-03-30] MEDS: Mineral OiL enema 133 ML ENEMA PR (11:16)
[2023-03-30 11:42] VITALS: BP 129/79; PULSE 70; RESP 17; TEMP 36.9; O2SAT 98
[2023-03-30] MEDS: Acetaminophen 325 MG TABLET 650 MG PO (12:18)
--- NOTE | 2023-03-30 14:36 | MHC.CM.PN ---
Patient discharged today home self-care. An UBER will provide transportation home.
== END 2023-03-30 15:35 | disposition home or self-care (01) ==
LOC: HO.ED 20:30 → HO.EDOVER 20:48 → HO.S3 03-28 12:55
PROVIDERS: Admitting Provider Student in an Organized Health Care Education/Training Program; Emergency Provider Emergency Medicine; Visit Provider Nurse Practitioner Acute Care
DX: R11.2 Nausea with vomiting, unspecified (principal); R10.9 Unspecified abdominal pain; R07.9 Chest pain, unspecified; F12.90 Cannabis use, unspecified, uncomplicated; M54.50 Low back pain, unspecified; M54.6 Pain in thoracic spine
CPT/HCPCS: 36415; 72070; 72100; 74176; 80048; 80053; 80307; 81001; 81025; 82248; 83690; 84484; 85025; 93005; 96361; 96372; 96374; 96375; 96376; 99221; 99285; J1650; J2060; J2270; J2405; J2765

== ENCOUNTER → 2023-03-27 20:39 | Outpatient (BNV) | payer MEDICAID, SELFPAY | PROVIDERS: Admitting Provider Student in an Organized Health Care Education/Training Program; Emergency Provider Emergency Medicine; Visit Provider Student in an Organized Health Care Education/Training Program | DX: R11.10 Vomiting, unspecified (principal) | CPT/HCPCS: 99222; 99232; 99239 ==

== ENCOUNTER 2023-08-01 17:21 | Emergency (ER) | payer MEDICAID, SELFPAY ==
--- NOTE | 2023-08-01 17:43 | ED.GENADULT ---
HPI - General Adult General Chief complaint: Urogenital-Female Stated complaint: STD check Time Seen by Provider: 08/01/23 17:49 Source: patient Mode of arrival: ambulatory Limitations: no limitations History of Present Illness HPI narrative: Patient is a 33 year old assigned female at with no reported medical history presenting to the emergency department today for STD treatment. Patient states that her boyfriend tested positive for gonorrhea. Patient denies any dizziness, lightheadedness, abdominal pain, nausea, vomiting, fever, chills, blurry vision, double vision, loss of vision, chest pain, difficulty breathing, shortness of breath, back pain, night sweats, pain with urination, increased urinary frequency, increased urinary urgency, blood in her urine or stool, syncope or a near syncopal episode, recent trauma or falls, bowel incontinence, bladder incontinence, bowel retention, bladder retention, or any other complaints at this time. Relieving factors: none Exacerbating factors: none Associated symptoms: denies other symptoms Treatments prior to arrival: none Related Data Home Medications Medication Instructions Recorded Confirmed vitamin 1 tab PO DAILY 03/27/23 03/27/23 no.76-iron,carbonyl 29 mg iron-folic acid 1 mg tablet (Prenatabs Rx) Previous Rx's Medication Instructions Recorded omeprazole 20 mg tablet,delayed 20 mg PO DAILY #30 tabs 03/30/23 release polyethylene glycol 3350 17 17 g PO DAILY #119 grams 03/30/23 gram/dose oral powder (Miralax) doxycycline hyclate 100 mg tablet 100 mg PO BID 7 days #14 tabs 08/01/23 Allergies Allergy/AdvReac Type Severity Reaction Status Date / Time No Known Allergies Allergy Verified 03/27/23 17:33 Review of Systems Constitutional: Constitutional: Reports no additional constitutional complaints, Denies chills, Denies fever(s) and Denies night sweats Eyes: Eyes: Reports no additional eye complaints, Denies blurry vision, Denies change in vision, Denies diplopia, Denies eye discharge, Denies loss of vision and Denies eye pain ENT: Denies dizziness Cardiovascular: Cardiovascular: Reports no additional cardiovascular complaints, Denies chest pain, Denies lightheadedness, Denies Loss of Consciousness and Denies dyspnea Respiratory: Respiratory: Reports no additional respiratory complaints and Denies dyspnea Gastrointestinal: Gastrointestinal: Reports no additional gastrointestinal complaints, Denies abdominal pain, Denies melena, Denies hematochezia, Denies change in bowel habits and Denies change in stool character Genitourinary: Genitourinary: Denies hematuria, Denies urinary frequency, Denies dysuria, Denies urinary incontinence, Denies urinary hesitancy and Denies urinary urgency Musculoskeletal: Musculoskeletal: Reports no additional musculoskeletal complaints, Denies numbness and Denies tingling Neurologic: Denies dizziness, Denies loss of vision, Denies numbness and Denies tingling Psychiatric: Psychiatric: Reports no additional psychiatric complaints Endocrine: Endocrine: Reports no additional endocrine complaints Hematologic/Lymphatic: Hematologic/Lymphatic: Reports no additional hematologic/lymphatic complaints Allergic/Immunologic: Allergic/Immunologic: Reports no additional allergic/immunologic complaints COUNT INCLUDES THE [facility] Past Medical History Attestation statement: The following information was validated with the patient. Source: old records reviewed and nursing notes reviewed Medical History Marijuana smoker Surgical History S/P cholecystectomy Social History Social History Household Members: Children Housing: House Do you presently have visiting nurse or other home services: No Alcohol intake: current Alcohol intake frequency: holidays/special occasions only Patient Tobacco Use Status: Current everyday Tobacco user Tobacco use type: Cigarette Cigarette Packs Per Day: 0.5 Cigarettes Per Day: 10.0 e-Cigarette/Vaping Use: Currently Using Substance Use Type: Marijuana service: No Physical Exam ED Vital Signs: Vital Signs - 24 hr 08/01/23 17:45 Temperature 97.6 F Pulse Rate 97 Respiratory Rate 18 Blood Pressure 151/99 H Pulse Oximetry 100 Oxygen Delivery Method Room Air BMI result Body Mass Index 20.6 Const General: cooperative, no acute distress, alert and awake Nutritional Appearance: well nourished Orientation/consciousness: patient oriented x3 Limitations: no limitations HENMT Head: Yes normal to inspection and Yes atraumatic Ears: hearing grossly normal bilaterally and external ears normal General nose exam: Normal external nose present, no nasal discharge noted and no epistaxis Face and sinus: Yes normal facial exam, No abrasion and No laceration Mouth: Normal oral and palatal mucosa present, no drooling and no muffled voice Eyes General: appearance normal, both eyes and all related structures Periorbital: periorbital findings normal Eyelids: Yes eyelids normal Conjunctivae: conjunctivae normal Pupils: Equal, round and reactive pupils present EOM: EOMs intact bilaterally Neck Neck: Yes normal visual inspection, Yes full ROM and Yes no lymphadenopathy Chest Chest palpation & inspection: normal inspection of the chest Resp Effort & Inspection: normal respiratory effort and able to speak in complete sentences GI Inspection: Yes normal to inspection Neuro General: patient oriented x3 and moves all extremities Cranial nerves: Yes Equal, round and reactive pupils present Cognition (Neuro): normal cognition Motor exam (neuro): 5/5 motor strength present throughout Sensory Exam: Normal double simultaneous stimulation for sensation Coordination: [id number] test normal Extrem General: Yes normal to inspection, Yes full ROM and Yes capillary refill normal Psych Appearance: grossly normal Mental Status: mental status grossly normal Affect: normal affect Attitude: cooperative Thought process: Normal thought process present Thought content: Normal thought content present Insight: Good insight present (Psych) Course Course Course Narrative: RME performed by Odessa Adams PA-C. Patient is a 33 year old assigned female at presenting to the emergency department for STD testing. Patient states that her boyfriend is gonorrhea positive. Labs ordered. Patient placed back in the waiting room pending room availability and results. Medical Decision Making Medical Decision Making [facility] Narrative: Patient is a 33 year old assigned female at with no reported medical history presenting to the emergency department today after being exposed to gonorrhea. Patient's physical exam was unremarkable. Patient's CT/NG is pending. I explained my physical exam findings to the patient. I answered all questions asked by the patient. I stressed the importance of the patient taking her medication as prescribed. I stressed the importance of the patient following up with her primary care provider. I stressed the importance of the patient returning to the emergency department immediately if her symptoms were to worsen or if she were to develop any dizziness, shortness of breath, difficulty breathing, chest pain, blurry vision, loss of vision, nausea, vomiting, abdominal pain, fever, chills, back pain, or any other complaints. Patient verbalized agreement and understanding with this treatment plan and discharge. Differential Diagnosis Differential Diagnoses: The differential diagnosis associated with the presentation includes STD exposure Gonorrhea exposure Prescription Management I considered prescription management with: Antibiotic (patient prescribed an antibiotic for gonorrhea exposure) Discharge Plan Discharge Clinical Impression: Exposure to STD Patient Disposition: Home, Self-Care Instructions: Sexually Transmitted Diseases (ED), Safe Sex Practices (ED) Additional Instructions: Follow up with your primary care provider. Return to the emergency department immediately if your symptoms worsen or if you develop any dizziness, shortness of breath, difficulty breathing, chest pain, blurry vision, loss of vision, nausea, vomiting, abdominal pain, fever, chills, back pain, or any other complaints. Prescriptions: New doxycycline hyclate 100 mg tablet 100 mg PO BID 7 Days Qty: 14 0RF No Action Prenatabs Rx 29 mg iron- 1 mg tablet 1 tab PO DAILY omeprazole 20 mg tablet,delayed release (DR/EC) 20 mg PO DAILY Qty: 30 0RF polyethylene glycol 3350 [Miralax] 17 gram/dose powder 17 g PO DAILY Qty: 119 0RF Referrals: [facility] Family Medicine [Provider Group] (Call to establish and follow up with a primary care provider. If you already have a primary care provider, please follow up with them.) [facility] [Provider Group] (Call to establish and follow up with a primary care provider. If you already have a primary care provider, please follow up with them.) [facility] [Provider Group] (Call to establish and follow up with a primary care provider. If you already have a primary care provider, please follow up with them.) Print Language: Mohawk
[2023-08-01 17:45] VITALS: BP 151/99; PULSE 97; RESP 18; TEMP 36.4; O2SAT 100; BMI 20.6
[2023-08-01] MEDS: Doxycycline Monohydrate 100 MG CAPSULE PO (18:31)
[2023-08-01] MEDS: cefTRIAXone sodium 500 MG, Lidocaine HCl 1 % MPF 1 ML IM (18:31)
[2023-08-01 19:02] VITALS: RESP 16
[2023-08-02 05:36] LABS: CT PCR NOT DETECTED (Not Detect.); NG PCR DETECTED (Not Detect.)
== END 2023-08-01 19:02 | disposition home or self-care (01) ==
PROVIDERS: Physician Assistant Medical; Emergency Provider Internal Medicine
DX: A54.9 Gonococcal infection, unspecified (principal); F17.210 Nicotine dependence, cigarettes, uncomplicated; F12.90 Cannabis use, unspecified, uncomplicated
CPT/HCPCS: 0353U; 96372; 99283; 99284; J0696

== ENCOUNTER 2024-10-26 08:44 | Emergency (ER) | payer MEDICAID, SELFPAY ==
[2024-10-26 08:47] VITALS: BP 120/70; PULSE 96; O2SAT 99; BMI 21.6
[2024-10-26 08:51] VITALS: BP 125/80; PULSE 78; RESP 16; TEMP 36.7; O2SAT 100
[2024-10-26 09:06] LABS: MANUAL DIFF FLAG NO
[2024-10-26 09:08] LABS: Basophils Percent Auto 0.2 % (0-2); Hematocrit 34.5 % (37.0-47.0); Hemoglobin 12.6 g/dl (12.0-16.0); Imm Gran Abs Auto 0.03 X10*3/uL (0.00-0.03); Imm Gran Pct Auto 0.6 % (0.0-0.4); Lymphocytes Absolute Auto 0.8 X10*3/uL (1.2-4.9); Lymphocytes Percent Auto 17.4 % (20-40); Mean Corpuscular HGB Conc 36.5 g/dl (31.0-35.0); Mean Corpuscular Hemoglobin 32.1 pg (27.0-33.0); Mean Platelet Volume 8.9 fL (9.4-12.3); Monocytes Absolute Auto 0.3 X10*3/uL (0.1-1.2); Monocytes Percent Auto 7.1 % (2-11); Neutrophils Absolute Auto 3.5 x10*3/uL (2.0-8.3); Neutrophils Percent Auto 74.7 % (45-73); Platelet Count 230 X10*3/uL (160-400); Red Blood Count 3.92 X10*6/uL (4.20-5.50); Red Cell Distribution Width 13.1 % (11.0-16.0); White Blood Count 4.7 X10*3/uL (4.8-10.8)
--- NOTE | 2024-10-26 09:33 | ED_ITS ---
HPI - URI/Sore Throat General Chief Complaint: Upper Respiratory Symptoms Stated Complaint: HEADACHE NAUSEA Time Seen by Provider: 10/26/24 08:47 History of Present Illness HPI Narrative: Patient is a 34-year-old female presents today with having coughing upper respiratory symptoms generalized malaise for the last 4 days. Cough productive of some clear sputum generalized aches nausea. Patient is approximately 16 weeks she had an ultrasound done a few weeks ago. Patient's he 9p5 had 3 miscarriages in the past. No pain on urination. Currently being followed at [facility]. Had vitamins. Had ultrasounds done in the past. Patient felt very tired and weak. Related Data Home Medications ?Medication ?Instructions ?Recorded ?Confirmed vitamin 1 tab PO DAILY 03/27/23 03/27/23 no.76-iron,carbonyl 29 mg iron-folic acid 1 mg tablet (Prenatabs Rx) Previous Rx's ?Medication ?Instructions ?Recorded omeprazole 20 mg tablet,delayed 20 mg PO DAILY #30 tabs 03/30/23 release polyethylene glycol 3350 17 17 g PO DAILY #119 grams 03/30/23 gram/dose oral powder (Miralax) doxycycline hyclate 100 mg tablet 100 mg PO BID 7 days #14 tabs 08/01/23 Allergies Allergy/AdvReac Type Severity Reaction Status Date / Time No Known Allergies Allergy Verified 10/26/24 08:50 Review of Systems 2 Review of Systems: Positive coughing upper respiratory symptoms Yes all other systems are reviewed and are negative [facility] Past Medical History Attestation statement: The following information was validated with the patient. Medical History Marijuana smoker Surgical History S/P cholecystectomy Social History Social History Household Members: Children Housing: House Do you presently have visiting nurse or other home services: No Alcohol intake: current Alcohol intake frequency: holidays/special occasions only Patient Tobacco Use Status: Current everyday Tobacco user Tobacco use type: Cigarette Cigarette Packs Per Day: 0.5 Cigarettes Per Day: 10.0 Smoked in Last 30 Days: No e-Cigarette/Vaping Use: Currently Using Use of substances other than those prescribed or required for medical reasons: No Substance Use Type: Marijuana Advance Directives: No Advance Directives Information Provided: Yes Do you have a plan to hurt others: No Plan Patient : Yes service: No Physical Exam 2 Vital Signs: Vital Signs: Last Vital Signs Temp 98.1 F 10/26/24 10:00 Pulse 88 10/26/24 10:00 Resp 21 H 10/26/24 10:00 BP 134/75 10/26/24 10:00 Pulse Ox 99 10/26/24 10:31 O2 Del Method Room Air 10/26/24 10:31 BMI result Body Mass Index 21.6 Appearance: Alert. Oriented X3. No acute distress. Eyes: Pupils equal, round and reactive to light. ENT: Pharynx normal. Neck: Normal inspection. Neck supple. No lymph nodes noted. No crepitus CVS: Normal heart rate and rhythm. Pulses normal. Normal S1 and S2 Respiratory: No respiratory distress. Breath sounds normal. No Wheezing. No rales Abdomen: Soft and nontender. No rigidity. No distention. good BS x4 Skin: Skin warm and dry. Normal skin color. Normal skin turgor. Extremities: No lower extremity edema. Neurovascular intact to all extremities. No Lacerations. No Rash Neuro: Oriented X 3. No motor deficit. No sensory deficit. Moving all extermities. No slurred speech Medications Administered Discontinued Medications Generic Name Dose Route Start Last Admin Trade Name Freq PRN Reason Stop Dose Admin Sodium Chloride 1,000 mls @ 999 mls/hr 10/26/24 09:30 10/26/24 10:02 Ns IV 10/26/24 10:30 999 mls[facility]hr [facility] Administration Medical Decision Making Medical Decision Making [facility] Narrative: Positive coughing congestion upper respiratory symptoms ongoing for 4 days. Patient is about 16 weeks . Had an IUP confirmed by ultrasound per patient. Currently on vitamins already. Denies any vomiting diarrhea of the abdominal pain. Patient is influenza came back positive. Likely the cause of patient's upper respiratory symptoms patient symptoms x4 days felt at this time Tamiflu not effective. Will discharge patient home Tylenol for fever rest hydrate close follow-up outpatient basis in stable condition. Differential Diagnosis Differential Diagnoses: The differential diagnosis associated with the presentation includes Influenza, pneumonia Admission/Observation Consideration of admission/observation: Escalation of care including admission/observation considered Lab Data [facility] Lab Attestation statement: I reviewed the patient's lab results. 10/26/24 09:00 10/26/24 09:00 Labs: Lab Results 10/26/24 10/26/24 Range/Units 09:00 Unknown WBC 4.7 L (4.8-10.8) X10*3/uL RBC 3.92 L (4.20-5.50) X10*6/uL Hgb 12.6 (12.0-16.0) g/dl Hct 34.5 L (37.0-47.0) % MCV 88.0 (80.0-98.0) fL MCH 32.1 (27.0-33.0) pg MCHC 36.5 H (31.0-35.0) g/dl RDW 13.1 (11.0-16.0) % Plt Count 230 (160-400) X10*3/uL MPV 8.9 L (9.4-12.3) fL Immature Gran % (Auto) 0.6 H (0.0-0.4) % Neut % (Auto) 74.7 H (45-73) % Lymph % (Auto) 17.4 L (20-40) % Rankin % (Auto) 7.1 (2-11) % Eos % (Auto) 0.0 (0-4) % Baso % (Auto) 0.2 (0-2) % Lymph # (Auto) 0.8 L (1.2-4.9) X10*3/uL Rankin # (Auto) 0.3 (0.1-1.2) X10*3/uL Eos # (Auto) 0.0 (0.0-0.4) X10*3/uL Baso # (Auto) 0.0 (0.0-0.2) X10*3/uL Abs Immat Gran (auto) 0.03 (0.00-0.03) X10*3/uL Absolute Neuts (auto) 3.5 (2.0-8.3) x10*3/uL Absolute Nucleated RBC 0.000 (0.0-0.012) X10*3/uL Nucleated RBC % (auto) 0.0 (0.0-0.2) /100WBC Sodium 134 L (135-145) mmol/L Potassium 3.2 L (3.3-5.1) mmol/L Chloride 104 (96-108) mmol/L Carbon Dioxide 21 L (22-29) mmol/L Anion Gap 12 (12-20) BUN 5 L (9-16) mg/dL Creatinine 0.59 (0.5-1.4) mg/dL Estim Creat Clear Calc 111.1 Estimated GFR > 60 Random Glucose 92 (60-115) mg/dL Calcium 8.1 L D (8.4-10.2) mg/dL Magnesium 1.8 (1.6-2.6) mg/dL Total Bilirubin 0.1 (0.0-1.0) mg/dL Direct Bilirubin < 0.2 (0.0-0.5) mg/dL AST 38 H (5-31) U/L ALT 27 (0-31) U/L Alkaline Phosphatase 56 (39-117) U/L Total Protein 7.7 (6.5-8.0) g/dL Albumin 3.7 (3.5-5.0) g/dL Lipase 36 (8-78) U/L Beta HCG, Quant [id number] mIU/mL Influenza Type A (PCR) NEGATIVE (Negative) Influenza Type B (PCR) POSITIVE A (Negative) RSV RNA Qual (PCR) NEGATIVE (Negative) SARS-CoV-2 RNA (RT-PCR) NEGATIVE (Negative) External Record Review External record reviewed: Inpatient record Prescription Management No antibiotic no antiviral as patient's symptoms greater than 48-72 hours Chronic Conditions Social Determinants Patient?s care significantly limited by Social Determinants of Health including: Problems related to primary support group Discharge Plan Discharge Clinical Impression: Influenza A Patient Disposition: Home, Self-Care Instructions: Influenza (ED) Prescriptions: No Action doxycycline hyclate 100 mg tablet 100 mg PO BID 7 Days Qty: 14 0RF Prenatabs Rx 29 mg iron- 1 mg tablet 1 tab PO DAILY omeprazole 20 mg tablet,delayed release (DR/EC) 20 mg PO DAILY Qty: 30 0RF polyethylene glycol 3350 [Miralax] 17 gram/dose powder 17 g PO DAILY Qty: 119 0RF Referrals: Physician,Unknown J [Primary Care Provider] - 10/28/24 Print Language: Turkish
[2024-10-26 09:41] LABS: Alanine Aminotransferase 27 U/L (0-31); Albumin Level 3.7 g/dL (3.5-5.0); Alkaline Phosphatase 56 U/L (39-117); Anion Gap 12 (12-20); Aspartate Amino Transferase 38 U/L (5-31); Bilirubin Direct < 0.2 mg/dL (0.0-0.5); Bilirubin Total 0.1 mg/dL (0.0-1.0); Blood Urea Nitrogen 5 mg/dL (9-16); Calcium 8.1 mg/dL (8.4-10.2); Carbon Dioxide 21 mmol/L (22-29); Chloride 104 mmol/L (96-108); Creatinine Clr Calc Pharmacy 111.1; Estimated Glomerular Filt Rate > 60; Glucose Random 92 mg/dL (60-115); Lipase 36 U/L (8-78); Magnesium 1.8 mg/dL (1.6-2.6); Potassium 3.2 mmol/L (3.3-5.1); Sodium 134 mmol/L (135-145); Total Protein 7.7 g/dL (6.5-8.0)
[2024-10-26 10:00] VITALS: BP 134/75; PULSE 88; RESP 21; TEMP 36.7; O2SAT 100
[2024-10-26] MEDS: 0.9 % Sodium Chloride 1,000 ML 999 ML IV (10:02)
[2024-10-26 10:14] LABS: Influenza A PCR NEGATIVE (Negative); Influenza B PCR POSITIVE (Negative); Resp Syncy Virus RNA Qual PCR NEGATIVE (Negative); SARS COV2 PCR INHOUSE NEGATIVE (Negative)
[2024-10-26 10:31] VITALS: O2SAT 99
[2024-10-26 12:23] VITALS: BP 133/86; PULSE 90; RESP 23; TEMP 36.6; O2SAT 100
[2024-10-26 12:38] VITALS: BP 133/86; PULSE 90; RESP 23; TEMP 36.6; O2SAT 100
== END 2024-10-26 12:40 | disposition home or self-care (01) ==
PROVIDERS: Emergency Provider Emergency Medicine Emergency Medical Services
DX: J10.1 Influenza due to other identified influenza virus with other respiratory manifestations (principal); O98.519 Other viral diseases complicating pregnancy, unspecified trimester; Z3A.00 Weeks of gestation of pregnancy not specified; R05.9 Cough, unspecified; R53.81 Other malaise
CPT/HCPCS: 0241U; 36415; 80053; 82248; 83690; 83735; 84702; 85025; 99283; 99285

== ENCOUNTER 2024-11-19 15:52 | Emergency (ER) | payer MEDICAID, SELFPAY ==
[2024-11-19 16:11] VITALS: BP 150/88; PULSE 88; O2SAT 98
[2024-11-19 16:14] VITALS: BP 141/80; PULSE 83; RESP 18; TEMP 36.8; O2SAT 99; BMI 23.0
--- OUTSIDE RECORDS SUMMARY | 2024-11-19 16:26 | XMS_ITS | Clinical Summary ---
Author Organization [facility] Address [address] [place] [address] Care Team Providers Care Environmental Technical Officer Name Role Phone Sih Maldonado PA-C Primary Care Provider Source Comments PLEASE NOTE, if this patient is a minor, it may be UNLAWFUL to discuss sensitive information that is contained in these records (such as FAMILY PLANNING, MENTAL HEALTH or SUBSTANCE ABUSE) with the minor patient's parent or other person without the patient's specific authorization.[facility] Allergies No known active allergies Medications acetaminophen (TYLENOL) 500 mg tabletIndication s:Chronic pain of both feet Take 1 Tablet by mouth every 6 (six) hours as needed for pain 90 Tablet 4 Active guaiFENesin (ROBITUSSIN) 100 mg/5 mL liquidIndication s:Acute cough Take 10 mL by mouth 3 (three) times daily as needed for cough 236 mL 4 Active albuterol HFA (VENTOLIN HFA) 90 mcg/actuation inhalerIndicatio ns:Chronic obstructive pulmonary disease, unspecified COPD type ([facility]) INHALE 2 PUFFS INTO THE LUNGS EVERY 4 (FOUR) HOURS NEEDED FOR SHORTNESS OF BREATH OR WHEEZING 18 Each 1 4 Active triamcinolone (KENALOG) 0.1 % ointmentIndicati ons:Psoriasis Apply topically 2 (two) times daily 453.6 g 1 4 Active M- PLUS Take 1 Tablet by mouth once daily 90 Tablet 3 4 Active Active Problems Problem Noted Date Diagnosed Date Bunion of great toe 11/07/2023 Psoriasis 11/11/2022 11/11/2022 Overview (11/11/2022): Currently sees Dr. Coulter for dermatology. No longer receives injections--states that she is on creams/ointments. States Dr. Coulter is aware of . Next appointment in August.Followed by dermatology (Dr. Coulter [address] [place] [address]). Receives weekly injections/ derm is aware of PTSD (post-traumatic stress disorder) 06/09/2020 Major depressive disorder, r ecurrent episode, moderate with anxious distress ([facility]) 06/09/2020 Nicotine dependence with current use 09/19/2019 Chronic obstructive pulmonary disease ([facility]) 08/24/2019 Resolved Problems Problem Noted Date Diagnosed Date Resolved Date Deep vein thrombosis (DVT) ([facility]) 11/11/2022 040 10/202211/11/2022 Overview (11/11/2022): H/O DVT following placement of right PICC Line. Was taking lovenox but was discontinued in April 2020 Anxiety 12/08/2021 11/11/2022 History of delivery, currently ([facility]) 12/08/2021 11/11/2022 Overview (12/08/2021): Patient reports h/o vag delivery of twin Gall stones 06/12/2021 11/11/2022 Overview (06/12/2021): 05/2021. Following Dr. Barcenas for outpatient management Miscarriage ([facility]) 07/26/20202022 H. pylori infection 02/09/2015 09/20/19 22 Overview (02/09/2015): Recheck in 2 months (2014) Depression with anxiety 12/13/201410/2022 Overview (12/13/2014): Seeing [address] Bilateral carpal tunnel syndrome 12/13/2014 09/20/2021 Routine general medical exam ination at a health care facility 09/201309/04/2014 03/25/2019 Memory disturbance 10/08/2013 Psoriasiform dermatitis 10/08/20130 10/2022 Overview (09/22/2019): Pt seeing slubber operator--Dr Coulter. Pt was started on Skyrisi 09/17/2019: Pt started seeing [facility]--started on Hydroxychloroquine Encounters Date Type Department Care Team Description 10/07/2024 Interim Notes [address] [phone] Cappas, Jami 10/05/2024 Interim Notes [address] [phone] Cappas, Jami 10/04/2024 Interim Notes [address] [phone] Roxanna Waller from Last 3 Months Immunizations Immunization Administration Dates Next Due Flu, Preservative Free 06/18/2020,05/17/2019, INFLUENZA, SEASONAL, INJECTABLE 06/12/2021,05/27 PFIZER COVID VACCINE, PURPLE CAP, 12+ 02/26/2021 ,02/04/2021 Pfizer-BioNTech COVID-19 Vac cine Bivalent, ([place] PFIZER-BIONTECH COVID-19 VACCINE BIVALENT, ([place] CAP 07/16/2022 Family History Medical History Relation Name Comments No Known Problems Father No Known Problems Mother Relation Name Status Comments Father Alive Mother Alive Social History Tobacco Use Types Packs/Day Years Used Date Smoking Tobacco: Every Day Cigarettes 0.3 2 Smokeless Tobacco: Former Tobacco Cessation:Ready to Q uit: Not Asked; Counseling Given: Yes Comments:2-4 cigarettes a day Alcohol Use Standard Drinks/Week Comments Yes 0 (1 standard drink = 0.6 oz pur e alcohol) occasional Social Connections Answer Date Recorded Connectedness 1 09/17/2023 Financial Resource Strain Answer Date R ecorded Financial Resource Strain 2 2023 Stress Answer Date Recorded Stress 1 09/17/2023 Physical Activity Answer Date Recorded Physical Activity 0 02/23/2020 Food Insecurity Answer Date Recorded Food 2 09/17/2023 Transportation Needs Answer Date Record ed Transportation 2 09/17/2023 Housing Stability Answer Date Recorded Housing 2 09/17/2023 Safety and Environment Answer Date Arsalan rded Safety 1 09/17/2023 Utilities Answer Date Recorded Utilities 2 09/17/2023 Employment Answer Date Recorded Stress 0 02/23/2020 Comments No Sex and Gender Information Value Date Recorded Sex Assigned at Female 10/28/2018 8:08 AM PDT Legal Sex Female 11:36 AM PDT Gender Identity Female 10/28/2018 8:08 AM PDT Sexual Orientation Lesbian 06/25/2021 11 :10 AM PST Last Filed Vital Signs Vital Sign Reading Time Taken Comments Blood Pressure 112/60 11/05/2023 4:10 PM EDT Pulse 97 11/05/2023 4:10 PM EDT Temperature 36.8 ??C (98.3 ??F) 11/05/2023 4:10 PM ED T Respiratory Rate 16 11/05/2023 4:10 PM EDT Oxygen Saturation 98% 11/05/2023 4:10 PM EDT Inhaled Oxygen Concentration - - Weight 56.1 kg (123 lb 9.6 oz) 11/05/2023 4:10 P M EDT Height 160 cm (5' 3 ) 11/05/2023 4:10 PM EDT Body Mass Index 21.89 11/05/2023 4:10 PM EDT Plan of Treatment Health Maintenance Due Date Last Done Comments Anxiety Screening 1990 HPV Screening 1990 Pap + HPV 1990 Imm-Pneumococcal (1 of 2 - PCV) 2009 Cervical Cancer Screening 2011 Pap Smear 2011 Annual Preventive Care Visit 10/28/2019 10/27/2018, 10/08/2013 Depression Monitoring 12/16/2023 09/17/2023 , 09/20/2021, 02/23/2020, Additional history exists Alcohol and Drug Screen 08/11/2024 09/17/19 24, 01/14/2023, 09/20/2021, Additional history exists Relationship Safety Screening/Counseling 09/17/2024 09/17/2023, 09/20/2021, 02/23/2020, Additional history exists Diabetes Screening 11/04/2024 11/05/2023, 0 01/14/2023, 01/14/2023, Additional history exists Hypertension Screening (#1) 11/04/2024 Tobacco Cessation Counseling (#1) 11/04/2024 Tobacco Screening 11/04/2024 Imm-DTaP/Tdap/Td (2 - Td or Tdap) 08/11/2033 024 HIV Screening Completed 06/28/2019, 12/07/2014 Hepatitis C Screening Completed 06/28/2019, 016 [id number] Completed 05/10/2024, 01/2022, 02/26/2021, Additional history exists Imm-Influenza Completed 05/10/2024, 09/2020, 06/18/2020, Additional history exists Cervical Ablation/Cold-Knife Conization Discontinued Cervical Cryotherapy Discontinued Colposcopy Discontinued Endometrial Biopsy Discontinued Excision/Leep Discontinued HPV Genotyping Discontinued Imm-Hepatitis B Discontinued Vaginal Pap Discontinued Vulvoscopy Discontinued Procedures Procedure Name Priority Date/Time Associated Diagnosis Comments COMPREHENSIVE METABOLIC PANEL Routine 11/05/2023 4:45 PM EDT Preoperative clearance ANTIBODY HIV-1&HIV-2 SINGLE RESULT Routine 06/28/2019 12:50 PM EST Weight loss HEPATITIS A,B,C PANEL Routine 06/28/2019 12:50 PM EST Weight loss from Last 3 Months or Most Recently Relevant to Health Maintenance Results * COMPREHENSIVE METABOLIC PANEL (11/05/2023 4:45 PM EDT) GLUCOSE 91 65 - 99 mg/dL [employer] Comment: ?Fasting reference interval UREA NITROGEN (BUN) 7 7 - 25 mg/dL [employer] CREATININE (blood) 0.77 0.50 - 0.97 mg/dL [employer] EGFR 104 > OR = 60 mL/min/1. 73m2 [employer] BUN/CREATININE RATIO SEE NOTE: [employer] Comment: ?? Not Reported: BUN and Creatinine are within ?? reference range. ? SODIUM 138 135 - 146 mmol/L [employer] POTASSIUM 4.1 3.5 - 5.3 mmol/L [employer] CHLORIDE 106 98 - 110 mmol/L [employer] CARBON DIOXIDE 25 20 - 32 mmol/L [employer] CALCIUM 8.9 8.6 - 10.2 mg/dL [facility] PROTEIN, TOTAL 6.6 6.1 - 8.1 g/dL [employer] [place] [employer] ALBUMIN 3.7 3.6 - 5.1 g/dL [employer] [place] [employer] GLOBULIN 2.9 1.9 - 3.7 g/dL (calc) [employer] [place] [employer] ALBUMIN/GLOBULI N RATIO 1.3 1.0 - 2.5 (calc) [employer] [place] [employer] BILIRUBIN, TOTAL 0.2 0.2 - 1.2 mg/dL [facility] ALKALINE PHOSPHATASE 48 31 - 125 U/L [facility] AST 14 10 - 30 U/L [facility] ALT 11 6 - 29 U/L [employer] Blood Blood / Unknown 11/05/2023 4 :45 PM EDT 11/05/2023 4:45 PM EDT us [facility] - BLOOD DRAW Edited Resu lt - Final [employer] [address] [place] [id number], [employer] [address] [phone] * (ABNORMAL) HEPATITIS A,B,C PANEL (06/28/2019 12:50 PM EST) HEPATITIS B SURFACE ANTIBODY POSITIVE(A) NEGATIVE [facility] HEPATITIS B SURFACE ANTIGEN NEGATIVE NEGATIVE [facility] Comment: Over the counter supplements containing high doses of biotin may interfere with this assay. ??If interference is suspected, patients shoud be retested after refraining from biotin supplements for 72 hours. HEPATITIS C VIRUS DIAGNOSTIC NEGATIVE NEGATIVE [facility] HEPATITIS A ANTIBODY TOTAL NEGATIVE NEGATIVE [facility] Comment: Over the counter supplements containing high doses of biotin may interfere with this assay. ??If interference is suspected, patients shoud be retested after refraining from biotin supplements for 72 hours. HEPATITIS B CORE ANTIBODY NEGATIVE NEGATIVE [facility] Blood specimen (specimen) Blood / Unknown 06/28/2019 12:50 PM EST 06/28/2019 2:14 PM EST Narrative [facility] - 06/28/2019 10:51 PM EST [employer] [address] Manager Student Services - Prema [place]ins [place] [id number] ORD# [id number] Isidro Golden [facility] - BLOOD DRAW Edited Resul t - Final Performing Organization Address [facility]/State/[place] [address], * HIV-1 & HIV-2 ANTIBODIES (06/28/2019 12:50 PM EST) [facility] HIV 1 AND 2 ANTIBODY SCREEN NEGATIVE NEGATIVE [facility] Comment: This assay is a 4th generation assay allowing for earlier detection of HIV infection by detecting the presence of the HIV-1 p24 antigen as well as the traditional antibodies to HIV type 1 (including group O) and type 2. ??Use of a 4th generation assay is the current CDC recommendation for HIV screening. Blood specimen (specimen) Blood / Unknown 06/28/2019 12:50 PM EST 06/28/2019 2:14 PM EST [facility] - 06/28/2019 11:20 PM EST [employer] [address] Manager Student Services - Prema Martins MD [place] [id number] ORD# [id number] Isidro Golden PA-C LAB - BLOOD DRAW Final Result Performing Organization Address City/[facility]/[place] [address], from Last 3 Months or Most Recently Relevant to Health Maintenance Insurance [facility] [employer] [address] [employer] Care Teams Environmental Technical Officer Relationship Specialty Start Date End Date Shi Maldonado PA-C [address] [place] [id number] PCP - General Internal Medicine 08/12/23
--- OUTSIDE RECORDS SUMMARY | 2024-11-19 16:26 | XMS_ITS | Clinical Summary ---
Author Organization [address] [facility] Address [address] [place] [address] Phone Care Team Providers Care Nude Model Name Role Phone Donny Chery NP Primary Care Provider [phone] Medications Fe gluconate/vit C/folic acid (IRON-C ORAL) Take by mouth. Active IRON, FERROUS SULFATE, ORAL Take 1 tablet by mouth 1 (one) time each day. 01/17/2023 Active PNV no.95/ferrous fum/folic ac ( ORAL) Take 1 tablet by mouth 1 (one) time each day. 07/22/2023 Active acetaminophen (TYLENOL) 325 mg tablet Take 2 tablets (650 mg total) by mouth every 6 (six) hours if needed for mild pain or moderate pain. for up to 10 days. 11/13/2023 Active acetaminophen (TYLENOL) 500 mg tablet Take 1 tablet (500 mg total) by mouth every 6 (six) hours if needed (PAIN). 09/17/2023 Active diazePAM (VALIUM) 2 mg tablet Take 1 tablet (2 mg total) by mouth 1 (one) time. for 1 day. Max Daily Amount: 2 mg 12/15/2023 Active ibuprofen (ADVIL,MOTRIN) 800 mg tablet Take 1 tablet (800 mg total) by mouth every 8 (eight) hours. for 30 days. 11/13/2023 Active medroxyPROGESTE Bharathi 150 mg/mL injection Inject 1 mL (150 mg total) into the shoulder, thigh, or buttocks every 3 (three) months. 01/16/2022 Active oxyCODONE (ROXICODONE) 5 mg immediate release tablet Take 1 tablet (5 mg total) by mouth every 6 (six) hours if needed (pain). Max Daily Amount: 20 mg 12/15/2023 Active triamcinolone (KENALOG) 0.1 % ointment Apply topically. 01/16/2023 Active Immunizations Name Administration Dates Next Due [facility] SARS-CoV-2 COVID-19, mRNA, LNP-S, preservative free 02/26/2021,02/04/2021 Surgical History Surgery Date Site/Laterality Comments CHOLECYSTECTOMY PROCEDURE: NE LAPAROSCOPY SURG CHOLECYSTECTOMY APPENDECTOMY PROCEDURE: HISTORICAL APPENDECTOMY OTHER SURGICAL HISTORY PROCEDURE: NE DILATION & CURETTAGE DX&/THER NONOBSTETRIC; COMMENT: for molar OTHER SURGICAL HISTORY 01/07/2022 Right PROCEDURE: NE LAPS TX ECTOPIC PREG W/O SALPING&/OOPHORECTOMY; COMMENT: R salpingectomy Medical History Medical History Date Comments Psoriasis DX:Psoriasis Social History Tobacco Use Types Packs/Day Years Used Date Smoking Tobacco: Every Day Cigarettes Smokeless Tobacco: Current Alcohol Use Standard Drinks/Week Comments Not Currently 0 (1 standard drink = 0.6 oz pur e alcohol) Comments Unknown Sex and Gender Information Value Date Recorded Sex Assigned at Not on file Legal Sex Female 3:10 PM EST Gender Identity Not on file Sexual Orientation Not on file Obstetrics History Last Filed Vital Signs Vital Sign Reading Time Taken Comments Blood Pressure 108/73 01/16/2022 1:07 PM EDT Pulse 78 01/16/2022 1:07 PM EDT Temperature - - Respiratory Rate - - Oxygen Saturation - - Inhaled Oxygen Concentration - - Weight 53.5 kg (118 lb) 01/01/2024 1:56 PM EDT Height 160 cm (5' 3 ) 01/01/2024 1:56 PM EDT Body Mass Index 20.9 01/01/2024 1:56 PM EDT Plan of Treatment Upcoming Encounters Date Type Department Care Team (Late st Contact Info) Description 12/02/2024 2:30 PM EDT Office Visit Orthopedic Surgery - [place] [address] [phone] Camilo Luis, ROBBY [address] [address] Health Maintenance Due Date Last Done Comments Hepatitis B Vaccines (1 of 3 - 19+ 3-dose series) 2009 Pneumococcal Vaccine: Pediatrics (0 to 5 Years) and At-Risk Patients (6 to 64 Years) (1 of 2 - PCV) 2009 Cervical Cancer Screening: Pap Smear 2011 Hepatitis C Screening 07/10/2022 Social Influencers of Health Screening 07/10/2022 Cholesterol Screening (Lipid Panel) 10/28/2023 10/27/2018 Depression Screening 09/17/2024 09/17/2023 DTaP,Tdap,and Td Vaccines (2 - Td or Tdap) 08/11/2033 08/11/2023 HIV Screening Completed 06/28/2019 COVID-19 Vaccine Completed 05/10/2024, 01/2022, 02/26/2021, Additional history exists Influenza Vaccine Completed 05/10/2024, , 06/18/2020, Additional history exists HIB Vaccines Aged Out No longer eligi ble based on patient's age to complete this topic HPV Vaccines Aged Out No longer eligi ble based on patient's age to complete this topic Hepatitis A Vaccines Aged Out No long er eligible based on patient's age to complete this topic IPV Vaccines Aged Out No longer eligi ble based on patient's age to complete this topic MMR Vaccines Aged Out No longer eligi ble based on patient's age to complete this topic Meningococcal ACWY Vaccine Aged Out N o longer eligible based on patient's age to complete this topic Meningococcal B Vaccine Aged Out No l onger eligible based on patient's age to complete this topic RSV Immunization Patients Under 20 months Aged Out No longer eligible based on patient's age to complete this topic Varicella Vaccines Aged Out No longer eligible based on patient's age to complete this topic Insurance MEDICAID - [place] Care Teams Nude Model Relationship Specialty Start Date End Date Donny Chery NP [address] [address] PCP - General 06/28/19
--- OUTSIDE RECORDS SUMMARY | 2024-11-19 16:26 | XMS_ITS | Clinical Summary ---
Author Organization [facility] Address [address] [place] [address] Care Team Providers Care Mechanic General Operational Test Name Role Phone Unavailable Primary Care Provider Unavailabl e Allergies No known active allergies Medications Medication Sig Dispensed Refills Start Date End Date Status famotidine (PEPCID) 40 MG tablet Take 1 tablet (40 mg total) by mouth daily. 14 tablet 0 01/28/2015 Active Social History Tobacco Use Types Packs/Day Years Used Date Smoking Tobacco: Every Day Alcohol Use Standard Drinks/Week Comments No 0 (1 standard drink = 0.6 oz pur e alcohol) Sex and Gender Information Value Date Recorded Sex Assigned at Not on file Gender Identity Not on file Sexual Orientation Not on file Job Start Date Occupation Industry Not on file Not on file Not on file Last Filed Vital Signs Vital Sign Reading Time Taken Comments Blood Pressure 130/74 01/28/2015 11:16 AM EDT Pulse 66 01/28/2015 11:16 AM EDT Temperature 36.7 ??C (98 ??F) 01/28/2015 11:16 AM EDT Respiratory Rate 16 01/28/2015 11:16 AM EDT Oxygen Saturation 100% 01/28/2015 11:16 AM EDT Inhaled Oxygen Concentration - - Weight - - Height - - Body Mass Index - - Plan of Treatment Health Maintenance Due Date Last Done Comments Hepatitis B Vaccines (1 of 3 - 3-dose series) 1990 Hepatitis C Screening 1990 COVID-19 Vaccine (#1) 1990 Pneumococcal Vaccine (1 of 2 - PCV) 1996 Depression Screening 2002 Preventative Health Evaluation 2008 DTap / Tdap / Td (1 - Tdap) 2009 Cervical Cancer Screening (P ap Smear) 2011 Influenza Vaccine (#1) 2024 RSV Ped < 20 months Aged Out No longe r eligible based on patient's age to complete this topic
--- NOTE | 2024-11-19 16:31 | PC.NURSE ---
patient a&ox3, doppler performed- hr 155, pt waiting to see provider, denies si/hi
[2024-11-19 17:16] LABS: Appearance Urine Clear; Color Urine Dark Yellow; Glucose Urine UA Negative (Negative); Leukocyte Esterase Urine Trace (Negative); Nitrite Urine Negative (Negative); PH 6.5 (5.0-9.0); Specific Gravity - Urine >= 1.030 (1.005-1.025); UMIC TRIGGER UACC YES; Urine Blood Negative (Negative); Urine Ketones 80 mg/dL (Negative); Urine Protein 100 (2+) mg/dL (Neg-Trace)
[2024-11-19 17:18] LABS: Bacteria Urine 1+ (None Seen); Hyaline Casts Urine 0-2 /LPF (0-2); RBC Urine 0-2 /HPF (0-2); UACC Culture Trigger YES
--- NOTE | 2024-11-19 17:23 | ED.PSYCH ---
HPI - Psych General Chief Complaint: Psychiatric Symptoms Stated Complaint: crisis, Time Seen by Provider: 11/19/24 17:23 Source: patient Mode of arrival: EMS Limitations: no limitations History of Present Illness ED Provider: Dr. Martínez Painter HPI Narrative: 34-year-old female with estimated date of delivery 04/15/2025 presents emergency room today after DCF took custody of her daughter bystanders called ambulance after seeing patient in distress. At the time of the evaluation patient was tearful but states she was not homicidal or suicidal. She reports that her OBGYN as trying to get her access to to therapy through [facility] for additional support. She reports she feels the baby active Doppler shows 155 beats per minute she denies any belly pain, vaginal bleeding, or vaginal discharge. Related Data Home Medications ?Medication ?Instructions ?Recorded ?Confirmed vitamin 1 tab PO DAILY 03/27/23 03/27/23 no.76-iron,carbonyl 29 mg iron-folic acid 1 mg tablet (Prenatabs Rx) Previous Rx's ?Medication ?Instructions ?Recorded omeprazole 20 mg tablet,delayed 20 mg PO DAILY #30 tabs 03/30/23 release polyethylene glycol 3350 17 17 g PO DAILY #119 grams 03/30/23 gram/dose oral powder (Miralax) doxycycline hyclate 100 mg tablet 100 mg PO BID 7 days #14 tabs 08/01/23 Allergies Allergy/AdvReac Type Severity Reaction Status Date / Time No Known Allergies Allergy Verified 11/19/24 16:20 PMFSH Past Medical History Medical History Marijuana smoker Surgical History S/P cholecystectomy Social History Social History Household Members: Children Housing: House Do you presently have visiting nurse or other home services: No Alcohol intake: current Alcohol intake frequency: holidays/special occasions only Patient Tobacco Use Status: Current everyday Tobacco user Tobacco use type: Cigarette Cigarette Packs Per Day: 0.5 Cigarettes Per Day: 10.0 Smoked in Last 30 Days: No e-Cigarette/Vaping Use: Currently Using Use of substances other than those prescribed or required for medical reasons: Yes Substance Use Type: Marijuana Advance Directives: No Advance Directives Information Provided: No Do you have a plan to hurt others: No Plan Patient : Yes service: No Physical Exam Vital Signs: Vital Signs: Last Vital Signs Temp 98.1 F 11/19/24 17:37 Pulse 88 11/19/24 17:37 Resp 16 11/19/24 17:37 BP 138/88 11/19/24 17:37 Pulse Ox 99 11/19/24 17:37 O2 Del Method Room Air 11/19/24 17:37 BMI result Body Mass Index 23.0 Initial vital signs: Blood pressure is elevated at 140 1/80 this is most likely due to stress and anxiety. Exam: General: Awake, alert in no distress Head: Normocephalic, atraumatic EENT: PERRL, Lids normal, sclera normal, conjunctiva normal, nose normal , ears normal, throat without erythema or exudates Neck: Supple, no adenopathy Lung: breath sounds symmetric, no wheezing, rales or rhonchi Chest: symmetric movement, nontender Heart: regular rate and rhythm, normal S1, S2 no murmurs or rubs Abdomen: Gravid, soft, non-tender, nondistended, normal bowel sounds Back: no vertebral tenderness, no CVAT Psych: Pleasant, cooperative, tearful Medical Decision Making Medical Decision Making MDM Narrative: 34-year-old female with estimated date of delivery 04/15/2025 presents emergency room today after DCF took custody of her daughter bystanders called ambulance after seeing patient in distress. At the time of the evaluation patient was tearful but states she was not homicidal or suicidal. She reports that her OBGYN as trying to get her access to to therapy through [facility] for additional support. She reports she feels the baby active Doppler shows 155 beats per minute she denies any belly pain, vaginal bleeding, or vaginal discharge. Differential diagnosis: ?Includes but is not limited to: Depression, anxiety, suicidal ideation, homicidal ideation Course: 17:40 patient blood pressure elevated at 140/80. Urinalysis concentrated showing 2+ protein, trace leukocyte esterase. Microscopic shows 6-10 WBCs, 6-10 squamous cells, and 1+ bacteria. This most likely reflects contaminated specimen. Drug screen urine reports positive PCP and marijuana. Patient denied any homicidal or suicidal ideation mother was at the bedside and felt comfortable taking the patient home. Patient was counseled on return precautions as such as elevated stress or having thoughts of harming herself or others. Contact information for [facility] counseling was given. Of patient was counseled on her elevated blood pressure of 140/80 and 2+ protein in the urine and was urged to follow up with her OBGYN on Friday morning. Unlikely that this has preeclampsia at this time due to the patient's increased anxiety and stress over DCF after taking her daughter out of the home. Admission/Observation Consideration of admission/observation: Escalation of care including admission/observation considered (Yes) Lab Data MDM Lab Attestation statement: I reviewed the patient's lab results. Labs: Lab Results 11/19/24 Range/Units 16:42 Urine Color Dark Yellow Urine Appearance Clear Urine pH 6.5 (5.0-9.0) Ur Specific [place] >= 1.030 H (1.005-1.025) Urine Protein 100 (2+) H (Neg-Trace) mg/dL Urine Glucose (UA) Negative (Negative) mg/dL Urine Ketones 80 (Negative) mg/dL Urine Blood Negative (Negative) Urine Nitrite Negative (Negative) Ur Leukocyte Esterase Trace H (Negative) Urine RBC 0-2 (0-2) /HPF Urine WBC 6-10 H (0-5) /HPF Ur Squamous Epith Cells 6-10 (0-2) /HPF Urine Bacteria 1+ (None Seen) Hyaline Casts 0-2 (0-2) /LPF Urine Opiates Screen Not Detected (Not Detect) Ur Buprenorphine Scrn Not Detected (Not Detect) ng/mL Ur Oxycodone Screen Not Detected (Not Detect) ng/mL Urine Methadone Screen Not Detected (Not Detect) ng/mL Urine Fentanyl Screen Not Detected (Not Detect) Ur Barbiturates Screen Not Detected (Not Detect) Ur Phencyclidine Scrn POSITIVE H (Not Detect) Ur Amphetamines Screen Not Detected (Not Detect) U Benzodiazepines Scrn Not Detected (Not Detect) Urine Cocaine Screen Not Detected (Not Detect) U Marijuana (THC) Screen POSITIVE H (Not Detect) Independent Historian Clinical information obtained from an independent historian. History obtained from or confirmed by: Parent (mother ) Chronic Conditions Patient?s care impacted by: Other (depression ) Social Determinants Polysubstance use disorder. DCF involvement. Discharge Plan Discharge Clinical Impression: Depression Patient Disposition: Home, Self-Care Additional Instructions: You were seen in our Emergency Department today for treatment of a behavioral health issue. It is important after your visit that you follow up with either your behavioral health provider or a primary care doctor within 7 days.? If you have trouble finding a therapist you can reach out to [place] [phone] [facility] [place] [facility] can be reached 7 days a week 24 hours a day.? Call [phone] to speak with someone.? Return for any worsening symptoms or concerns such as thoughts of self harm or harm to others. Please call 911 if you feel your mental health is worsening.? Prescriptions: No Action doxycycline hyclate 100 mg tablet 100 mg PO BID 7 Days Qty: 14 0RF Prenatabs Rx 29 mg iron- 1 mg tablet 1 tab PO DAILY omeprazole 20 mg tablet,delayed release (DR/EC) 20 mg PO DAILY Qty: 30 0RF polyethylene glycol 3350 [Miralax] 17 gram/dose powder 17 g PO DAILY Qty: 119 0RF Interventions: Bradshaw-Suicide Risk Severity Scale Last Done: 11/19/24 16:28 ED Discharge Assessment Last Done: 11/19/24 17:37 Discharge Date/Time: 11/19/24 17:38 Print Language: Romanian
[2024-11-19 17:25] LABS: Amphetamine Screen Urine Not Detected (Not Detect); Barbiturates, Urine Not Detected (Not Detect); Benzodiazepines Screen Urine Not Detected (Not Detect); Buprenorphine Scr Not Detected (Not Detect); Cannabinoid Screen Urine POSITIVE (Not Detect); Cocaine Screen Urine Not Detected (Not Detect); Fentanyl, urine Not Detected (Not Detect); Methadone Screen, Urine Not Detected (Not Detect); Opiate Screen Urine Not Detected (Not Detect); Oxycodone Screen Urine Not Detected (Not Detect); Phencyclidine Screen Urine POSITIVE (Not Detect)
--- NOTE | 2024-11-19 17:36 | PC.NURSE ---
patient a&ox3, vitals stable, pt requested to discharged as she decided she doesnt want to be seen anymore. pt is not si/hi, provider was notified, family at bedside has a safe ride home. denies pain/discomfort. ambulating with steady gait.
[2024-11-19 17:37] VITALS: BP 138/88; PULSE 88; RESP 16; TEMP 36.7; O2SAT 99
== END 2024-11-19 17:38 | disposition home or self-care (01) ==
PROVIDERS: Emergency Provider Emergency Medicine Emergency Medical Services
DX: O99.342 Other mental disorders complicating pregnancy, second trimester (principal); O99.332 Smoking (tobacco) complicating pregnancy, second trimester; F33.1 Major depressive disorder, recurrent, moderate; Z3A.14 14 weeks gestation of pregnancy; Z51.81 Encounter for therapeutic drug level monitoring; Z79.899 Other long term (current) drug therapy
CPT/HCPCS: 80307; 81001; 87086; 99284

== ENCOUNTER 2025-06-06 03:08 | Emergency (ER) | payer MEDICAID, SELFPAY ==
--- NOTE | ~2025-06-06 | XR_ITS ---
CLINICAL HISTORY: cough, chest pain 2 view chest x-ray Comparison: None provided Findings: No consolidation or effusion. Normal size heart. No acute fracture. IMPRESSION: No acute cardiopulmonary abnormality. This document has been electronically signed by: Krista Perez on 06/06/2025 06:20:44
[2025-06-06 03:11] VITALS: BP 150/90; PULSE 84; O2SAT 99
[2025-06-06 03:17] VITALS: BP 163/104; PULSE 80; RESP 16; TEMP 36.7; O2SAT 99; BMI 24.8
--- OUTSIDE RECORDS SUMMARY | 2025-06-06 03:31 | XMS_ITS | Clinical Summary ---
Author Organization [address] [facility] Address [address] [place] [address] Phone Care Team Providers Care 8Th Grade Teacher Name Role Phone Donny Chery NP Primary Care Provider [phone] Medications Fe gluconate/vit C/folic acid (IRON-C ORAL) [...] % ointment Apply topically. 01/16/2023 Active Immunizations Immunization Administration Dates Next Due Pfizer SARS-CoV-2 COVID-19, mRNA, LNP-S, preservative free 02/26/2021,02/04/2021 Surgical History Surgery Date Site/Laterality Comments CHOLECYSTECTOMY PROCEDURE: UT LAPAROSCOPY SURG CHOLECYSTECTOMY APPENDECTOMY PROCEDURE: HISTORICAL APPENDECTOMY OTHER SURGICAL HISTORY PROCEDURE: UT DILATION & CURETTAGE DX&/THER NONOBSTETRIC; COMMENT: for molar OTHER SURGICAL HISTORY 01/07/2022 Right PROCEDURE: UT LAPS TX ECTOPIC PREG W/O SALPING&/OOPHORECTOMY; COMMENT: [...] Care Team (Late st Contact Info) Description 08/01/2025 2:15 PM EST Office Visit Orthopedic Surgery - [place] [address] [phone] Camilo Luis DPM 175 [facility] [address] [place] [address] Health Maintenance Due Date Last Done Comments Hepatitis B Vaccines (1 of 3 - 19+ 3-dose series) 2009 Pneumococcal Vaccine: Pediatrics (0 to 5 Years) and At-Risk Patients (6 to 49 Years) (1 of 2 - PCV) 2009 Cervical Cancer Screening: Pap Smear 2011 HPV Vaccines (1 - 3-dose SCDM series) 2017 Hepatitis C Screening 07/10/2022 Social Influencers of Health Screening 07/10/2022 Depression Screening 08/11/2024 Influenza Vaccine (#1) 2025 , 06/12/2021, 06/18/2020, Additional history exists DTaP,Tdap,and Td Vaccines (2 - Td or Tdap) 08/11/2033 08/11/2023 RSV Immunization Adult Patients (1 - 1-dose 75+ series) 2065 HIV Screening Completed 06/28/2019 COVID-19 Vaccine Completed 05/10/2024, 01/2022, 02/26/2021, Additional history exists HIB Vaccines Aged Out [...] to complete this topic Insurance MEDICAID - [place] Care Teams 8Th Grade Teacher Relationship Specialty Start Date End Date Donny Chery NP [address] [id number] PCP - General 06/28/19
--- OUTSIDE RECORDS SUMMARY | 2025-06-06 03:31 | XMS_ITS | Clinical Summary ---
Author Organization [facility] Address [address] [place] [address] Care Team Providers Care Cherry Sorter Name Role Phone Unavailable Primary Care Provider [...] 66 01/28/2015 11:16 AM EDT Temperature 36.7 C (98 F) 01/28/2015 11:16 AM EDT Respiratory Rate 16 [...] (P ap Smear) 2011 Influenza Vaccine (#1) 2025 RSV Ped < 20 months Aged Out No longe r eligible based on patient's age to complete this topic
--- OUTSIDE RECORDS SUMMARY | 2025-06-06 03:31 | XMS_ITS | Clinical Summary ---
Author Organization [employer] Address [address] [facility] [address] [place] [address] Care Team Providers Care Shuttler Car Name Role Phone Unavailable Primary Care Provider Unavailabl e Social History Tobacco Use Types Packs/Day Years Used Date Smoking Tobacco: Never Assessed Comments Unknown Sex and Gender Information Value Date Recorded Sex Assigned at Not on file Legal Sex Female 9:29 PM EDT Gender Identity Not on file Sexual Orientation Not on file Plan of Treatment Health Maintenance Due Date Last Done Comments Depression Screening 1990 Lipid Panel 1990 SDOH Screening 1990 Disability Screening 1990 Alcohol/Substance Use Screening 2002 Tobacco Screening 2002 Family Planning (PISQ) 2005 HPV Vaccines (1 - 3-dose series) 2005 Hepatitis C Screening 2008 DTaP/Tdap/Td Vaccines (1 - Tdap) 2009 Hepatitis B Vaccines (1 of 3 - 19+ 3-dose series) 2009 Pneumococcal Vaccine: Pediatrics (0 to 5 Years) and At-Risk Patients (6 to 49) Years (1 of 2 - PCV) 2009 Pap Smear 2011 Cervical Cancer Screening 2020 HPV/Cotest 2020 COVID-19 Vaccine ( - 2024- season) 2025 07/16/2022, 02/26/2021, 02/04/2021 Influenza Vaccine (#1) 2025 , 06/18/2020, 05/17/2019, Additional history exists Zoster Vaccines (1 of 2) 2040 RSV Patients and Patients Aged 60 years or older (1 - 1-dose 75+ series) 2065 HIV Screening Completed 06/28/2019 HIB Vaccines Aged Out No longer eligi [...] patient's age to complete this topic Meningococcal Vaccine Aged Out No mini jae eligible based on patient's age to complete this topic RSV under 20 months Aged Out No longe r eligible based on patient's age to complete this topic Rotavirus Vaccines Aged Out No longer eligible based on patient's age to complete this topic
[2025-06-06 04:54] LABS: COVID-19 Test Negative (Negative); IDNOW Serial# 55D5AD1C; IDNOW Serial# 58CA691E; Influenza B2 Negative (Negative)
--- NOTE | 2025-06-06 05:03 | ED.URI ---
HPI - URI/Sore Throat General Chief Complaint: Upper Respiratory Symptoms Stated Complaint: cough and congestion Time Seen by Provider: 06/06/25 03:51 Source: patient Mode of arrival: ambulatory Limitations: no limitations History of Present Illness ED Provider: Dr. Ying Garcia HPI Narrative: 35-year-old female with a history of hypertension, depression and anxiety presenting with dry cough, generalized malaise and fatigue ongoing for the last 3 days. No known sick contacts or travel. Has some anterior chest wall tenderness to palpation that is associated with her cough. No reported fever. Describes generalized body aches and pain. No abdominal pain, nausea, vomiting, diarrhea, lower extremity edema or pain, urinary complaints, vaginal or discharge. Had a baby about 2 months ago that was reported uncomplicated delivery. Has residual hypertension. Has been taking all of her medications as prescribed. Did not take medication today though. Related Data Home Medications ?Medication ?Instructions ?Recorded ?Confirmed vitamin 1 tab PO DAILY 03/27/23 03/27/23 no.76-iron,carbonyl 29 mg iron-folic acid 1 mg tablet (Prenatabs Rx) Previous Rx's ?Medication ?Instructions ?Recorded omeprazole 20 mg tablet,delayed 20 mg PO DAILY #30 tabs 03/30/23 release polyethylene glycol 3350 17 17 g PO DAILY #119 grams 03/30/23 gram/dose oral powder (Miralax) doxycycline hyclate 100 mg tablet 100 mg PO BID 7 days #14 tabs 08/01/23 lidocaine 5 % topical patch 1 patch topical DAILY #15 ea 06/06/25 prednisone 50 mg tablet 50 mg PO DAILY 5 days #5 tabs 06/06/25 Allergies Allergy/AdvReac Type Severity Reaction Status Date / Time No Known Allergies Allergy Verified 06/06/25 03:18 Review of Systems Review of Systems: as per HPI, full review of systems performed and negative but for the above mentioned pertinent positives and negatives. PMFSH Past Medical History Medical History Marijuana smoker Surgical History S/P cholecystectomy Social History Social History Household Members: Children Housing: House Do you presently have visiting nurse or other home services: No Alcohol intake: current Alcohol intake frequency: holidays/special occasions only Patient Tobacco Use Status: Current everyday Tobacco user Tobacco use type: Cigarette Cigarette Packs Per Day: 0.5 Cigarettes Per Day: 10.0 e-Cigarette/Vaping Use: Currently Using Substance Use Type: Marijuana Advance Directives: No Advance Directives Information Provided: No service: No Physical Exam Exam: Exam: GENERAL: Ill-Appearing, appears uncomfortable. SKIN: Normal skin color for ethnicity, warm, dry, no rashes noted. HEENT:? Normocephalic, atraumatic, no stridor, dry mucous membranes, dentition intact, EOMI. NECK: Soft, supple, full ROM, midline structures nontender, no step-offs, no deformities, no lymphadenopathy. CHEST: Heart regular rhythm, no murmurs, symmetric chest rise and fall. PULMONARY: Clear to auscultation bilaterally, diminished at the bases, no labored breathing, no wheezes/rhales/rhonchi, occasional bronchospastic cough. ABDOMINAL: Soft, nondistended, nontender, positive bowel sounds in all quadrants. : Deferred. MUSCULOSKELETAL: Normal tone, full range of motion, no deformities, no peripheral edema. NEURO: Alert and oriented x3, CN II through XII intact, equal strength and sensation bilateral upper and lower extremities, no focal neurologic deficits.? PSYCHIATRIC: Flat affect, fluid speech, good eye contact and appropriate demeanor. Vital Signs: Vital Signs: Last Vital Signs Temp 98.1 F 06/06/25 05:52 Pulse 80 06/06/25 05:52 Resp 16 06/06/25 05:52 BP 156/104 H 06/06/25 05:52 Pulse Ox 99 06/06/25 05:52 O2 Del Method Room Air 06/06/25 05:52 BMI result Body Mass Index 24.8 Medications Administered Discontinued Medications Generic Name Dose Route Start Last Admin Trade Name Freq PRN Reason Stop Dose Admin Guaifenesin/Codeine Phosphate 5 ml 06/06/25 05:02 06/06/25 05:44 Guaifen/Codeine Sf 200/20/10ml 10 Ml Liquid PO 06/06/25 05:03 5 ml ONCE ONE Administration Lidocaine 1 patch 06/06/25 04:59 06/06/25 05:45 Lidocaine 4 % Patch Adh..Patch TRANSDERMA 06/06/25 05:00 1 patch ONCE ONE Administration Protocol Nifedipine 60 mg 06/06/25 05:04 06/06/25 05:45 Nifedipine Er 30 Mg Tab.Er.24 PO 06/06/25 05:05 60 mg ONCE ONE Administration Protocol Medical Decision Making Medical Decision Making [facility] Narrative: Patient presents today with flu-like symptoms. Differential diagnosis includes influenza, coronavirus, pneumonia, upper respiratory infection, among others. Most importantly, this patient is not in any acute respiratory distress. They have normal oxygen levels at room air. Chest x-ray is clear. Suspect viral bronchitis. I have discussed medication and other home therapies that will help the patient and have discussed strict return precautions. Instructed that symptoms may worsen and the patient might need re-evaluation or even hospitalization in the future, but did not show signs of this at the time of discharge. Differential Diagnosis Differential Diagnoses: The differential diagnosis associated with the presentation includes (As above) Admission/Observation Consideration of admission/observation: Escalation of care including admission/observation considered Lab Data [facility] Lab Attestation statement: I reviewed the patient's lab results. Labs: Lab Results 06/06/25 Range/Units 04:30 COVID-19 (SHARON) Negative (Negative) COVID-19 Clin Com See Note Influenza Type A (SOWMYA) Negative (Negative) Influenza Type B (SOWMYA) Negative (Negative) Influenza A & B Note See Note Independent Interpretation I performed an independent interpretation of an: Plain X-Ray Interpretation: My independent interpretation of the chest x-ray reveals no consolidations, pulmonary edema, pleural effusion, pneumothorax, obvious bony abnormalities. Radiology Impression Discussion of test interpretation with radiology: I have reviewed the radiologist's reading. External Record Review External record reviewed: Inpatient record Chronic Conditions Patient?s care impacted by: Hypertension Social Determinants Patient?s care significantly limited by Social Determinants of Health including: Other Social Determinant of Health Discharge Plan Discharge Clinical Impression: Acute viral bronchitis, Acute chest wall pain, Rib contusion Patient Disposition: Home, Self-Care Instructions: Acute Bronchitis (ED), Chest Wall Pain (ED) Additional Instructions: Use topical lidocaine patches as needed for the pain in your chest wall. Take prednisone for the next 5 days to help with your cough and cold-type symptoms. Return to the ER with any new or worsening symptoms including: Fevers greater than 100?, continued cough despite medications, worsening chest pain or difficulty breathing, any new symptom that concerns you. Call 911 with any medical emergency. Prescriptions: New prednisone 50 mg tablet 50 mg PO DAILY 5 Days Qty: 5 0RF lidocaine 5 % adhesive patch,medicated 1 patch topical DAILY Qty: 15 0RF Rx Instructions: leave on most painful area for up to 12 hrs No Action doxycycline hyclate 100 mg tablet 100 mg PO BID 7 Days Qty: 14 0RF Prenatabs Rx 29 mg iron- 1 mg tablet 1 tab PO DAILY omeprazole 20 mg tablet,delayed release (DR/EC) 20 mg PO DAILY Qty: 30 0RF polyethylene glycol 3350 [Miralax] 17 gram/dose powder 17 g PO DAILY Qty: 119 0RF Interventions: ED Discharge Assessment Last Done: 06/06/25 05:52 Discharge Date/Time: 06/06/25 05:53 Print Language: Telugu
[2025-06-06] MEDS: guaiFEN/Codeine SF 200/20/10ML 10 ML LIQUID 5 ML PO (05:44)
[2025-06-06 05:45] VITALS: BP 156/104
[2025-06-06] MEDS: Lidocaine 4 % Patch ADH..PATCH 1 PATCH TRANSDERMA (05:45)
[2025-06-06] MEDS: NIFEdipine ER 30 MG TAB.ER.24 60 MG PO (05:45)
[2025-06-06 05:52] VITALS: BP 156/104; PULSE 80; RESP 16; TEMP 36.7; O2SAT 99
== END 2025-06-06 05:53 | disposition home or self-care (01) ==
PROVIDERS: Emergency Provider Emergency Medicine; PCP Nurse Practitioner Family
DX: J20.8 Acute bronchitis due to other specified organisms (principal); R05.9 Cough, unspecified; J02.9 Acute pharyngitis, unspecified; R07.89 Other chest pain; R09.89 Other specified symptoms and signs involving the circulatory and respiratory systems; F33.1 Major depressive disorder, recurrent, moderate; I10 Essential (primary) hypertension; F17.210 Nicotine dependence, cigarettes, uncomplicated; Z11.52 Encounter for screening for COVID-19; Z79.899 Other long term (current) drug therapy
CPT/HCPCS: 71046; 87502; 87635; 99282; 99283

== ENCOUNTER → 2025-06-06 04:04 | Outpatient (BNV) | payer MEDICAID, SELFPAY | PROVIDERS: Emergency Provider Emergency Medicine; PCP Nurse Practitioner Family; Visit Provider Radiology Vascular & Interventional Radiology | DX: R05.9 Cough, unspecified (principal); R07.9 Chest pain, unspecified | CPT/HCPCS: 71046 ==